=== PATIENT | male | born 1975 | race Caucasian/White ===

== ENCOUNTER → 2020-04-24 08:33 | Outpatient (BNVA) | payer MEDICARE, SELFPAY | PROVIDERS: PCP Nurse Practitioner Family; Referring Provider Nurse Practitioner Family; Visit Provider Nurse Practitioner Gerontology | DX: Z13.89 Encounter for screening for other disorder (principal) | CPT/HCPCS: Q3014 ==

== ENCOUNTER → 2020-05-29 08:28 | Outpatient (BNVA) | payer MEDICARE, SELFPAY | PROVIDERS: PCP Nurse Practitioner Family; Visit Provider Nurse Practitioner Gerontology | CPT/HCPCS: Q3014 ==

== ENCOUNTER → 2020-10-10 08:19 | Outpatient (BNVA) | payer MEDICARE, SELFPAY | PROVIDERS: PCP Nurse Practitioner Family; Visit Provider Nurse Practitioner Gerontology | DX: E11.65 Type 2 diabetes mellitus with hyperglycemia (principal); E11.42 Type 2 diabetes mellitus with diabetic polyneuropathy; E78.5 Hyperlipidemia, unspecified; E55.9 Vitamin D deficiency, unspecified; E66.01 Morbid (severe) obesity due to excess calories; I10 Essential (primary) hypertension; Z79.4 Long term (current) use of insulin; Z68.37 Body mass index [BMI] 37.0-37.9, adult | CPT/HCPCS: 82947; 83036; 99212 ==

== ENCOUNTER 2020-10-31 13:55 | Outpatient (REF) | payer MEDICARE, SELFPAY ==
[2020-10-31 16:55] LABS: Alanine Aminotransferase 34 U/L (0-40); Albumin Level 4.1 g/dL (3.5-5.0); Alkaline Phosphatase 97 U/L (39-117); Anion Gap 13 (12-20); Aspartate Amino Transferase 16 U/L (5-37); Bilirubin Total 0.9 mg/dL (0.0-1.0); Blood Urea Nitrogen 9 mg/dL (9-16); Calcium 9.5 mg/dL (8.4-10.2); Carbon Dioxide 24 mmol/L (22-29); Chloride 106 mmol/L (96-108); Cholesterol 111 mg/dL; Estimated Glomerular Filt Rate > 60; Glucose Fasting 161 mg/dL (60-99); HDL Cholesterol 22 mg/dL; LDL Cholesterol Calculated 60 mg/dl; Potassium 4.1 mmol/L (3.3-5.1); Sodium 139 mmol/L (135-145); Triglycerides 145 mg/dL
[2020-10-31 16:58] LABS: Creatinine Urine 136.94 mg/dL; Microalbum/Creatinine Ratio Ur 12.4 ug/mg cr
[2020-10-31 17:11] LABS: Vitamin D 25-OH Total 19.3 ng/mL (>30)
[2020-11-02 04:47] LABS: LDL Cholesterol Direct 67 mg/dL (<100)
== END 2020-10-31 13:56 | disposition home or self-care (01) ==
LOC: HO.HMGCLDS 13:55
PROVIDERS: PCP Nurse Practitioner Family; Visit Provider Nurse Practitioner Gerontology
DX: E11.42 Type 2 diabetes mellitus with diabetic polyneuropathy (principal); E55.9 Vitamin D deficiency, unspecified; Z79.4 Long term (current) use of insulin
CPT/HCPCS: 36415; 80053; 80061; 82043; 82306; 83721

== ENCOUNTER → 2020-11-05 10:21 | Outpatient (BNVA) | payer MEDICARE, SELFPAY | PROVIDERS: PCP Nurse Practitioner Family; Visit Provider Urology | DX: F41.8 Other specified anxiety disorders (principal) | CPT/HCPCS: 99202 ==

== ENCOUNTER → 2021-01-22 10:43 | Outpatient (BNVA) | payer MEDICARE, SELFPAY | PROVIDERS: PCP Nurse Practitioner Family; Visit Provider Urology | DX: Z30.2 Encounter for sterilization (principal); F41.8 Other specified anxiety disorders | CPT/HCPCS: 55250 ==

== ENCOUNTER → 2021-04-17 07:30 | Outpatient (BNVA) | payer MEDICARE, SELFPAY | PROVIDERS: PCP Nurse Practitioner Family; Visit Provider Nurse Practitioner Gerontology | DX: E11.65 Type 2 diabetes mellitus with hyperglycemia (principal); E11.42 Type 2 diabetes mellitus with diabetic polyneuropathy; E78.5 Hyperlipidemia, unspecified; E55.9 Vitamin D deficiency, unspecified; E66.01 Morbid (severe) obesity due to excess calories; I10 Essential (primary) hypertension; Z79.4 Long term (current) use of insulin; Z68.37 Body mass index [BMI] 37.0-37.9, adult | CPT/HCPCS: 99212 ==

== ENCOUNTER → 2021-04-22 10:06 | Outpatient (BNVA) | payer OTHER, SELFPAY | PROVIDERS: PCP Nurse Practitioner Family; Visit Provider Urology | DX: Z48.816 Encounter for surgical aftercare following surgery on the genitourinary system (principal); F41.8 Other specified anxiety disorders; Z98.52 Vasectomy status | CPT/HCPCS: 99212 ==

== ENCOUNTER → 2021-07-16 07:57 | Outpatient (BNVA) | payer MEDICARE, SELFPAY | PROVIDERS: PCP Nurse Practitioner Family; Visit Provider Nurse Practitioner Gerontology | DX: E11.65 Type 2 diabetes mellitus with hyperglycemia (principal); E11.42 Type 2 diabetes mellitus with diabetic polyneuropathy; E78.5 Hyperlipidemia, unspecified; E55.9 Vitamin D deficiency, unspecified; E66.01 Morbid (severe) obesity due to excess calories; I10 Essential (primary) hypertension; Z79.4 Long term (current) use of insulin; Z68.37 Body mass index [BMI] 37.0-37.9, adult | CPT/HCPCS: Q3014 ==

== ENCOUNTER 2021-08-14 07:40 | Outpatient (REF) | payer OTHER, SELFPAY ==
[2021-08-14 11:36] LABS: Appearance Urine CLEAR; Color Urine YELLOW; Glucose Urine UA NEG (NEG); Leukocyte Esterase Urine NEG (NEG); Nitrite Urine NEG (NEG); Urine Blood NEG (NEG); Urine Ketones NEG (NEG); Urine Protein NEG (NEG-TRACE)
[2021-08-14 11:54] LABS: Creatinine Urine 146.59 mg/dL; Microalbumin Urine < 5.0 mg/L
[2021-08-14 12:14] LABS: Alanine Aminotransferase 28 U/L (0-40); Alkaline Phosphatase 81 U/L (39-117); Anion Gap 12 (12-20); Aspartate Amino Transferase 14 U/L (5-37); Bilirubin Total 0.8 mg/dL (0.0-1.0); Blood Urea Nitrogen 12 mg/dL (9-16); Calcium 9.2 mg/dL (8.4-10.2); Carbon Dioxide 25 mmol/L (22-29); Chloride 105 mmol/L (96-108); Cholesterol 122 mg/dL; Estimated Glomerular Filt Rate > 60; Glucose Fasting 143 mg/dL (60-99); HDL Cholesterol 22 mg/dL; LDL Cholesterol Calculated 70 mg/dl; Potassium 4.2 mmol/L (3.3-5.1); Sodium 138 mmol/L (135-145); Total Protein 6.7 g/dL (6.5-8.0); Triglycerides 150 mg/dL
[2021-08-14 12:17] LABS: Vitamin D 25-OH Total 32.9 ng/mL (>30)
[2021-08-14 12:18] LABS: Estimated Average Glucose 128 mg/dL; Hemoglobin A1c % 6.1 %
[2021-08-16 00:02] LABS: LDL Cholesterol Direct 77 mg/dL (<100)
== END 2021-08-14 07:41 | disposition home or self-care (01) ==
LOC: HO.HMGCLDS 07:40
PROVIDERS: PCP Nurse Practitioner Family; Visit Provider Nurse Practitioner Gerontology
DX: E11.65 Type 2 diabetes mellitus with hyperglycemia (principal); E11.49 Type 2 diabetes mellitus with other diabetic neurological complication; I10 Essential (primary) hypertension; E55.9 Vitamin D deficiency, unspecified; Z79.4 Long term (current) use of insulin
CPT/HCPCS: 36415; 80053; 80061; 81003; 82043; 82306; 83036; 83721; 84443

== ENCOUNTER 2022-06-17 06:29 | Outpatient (REF) | payer OTHER, SELFPAY ==
[2022-06-17 11:17] LABS: Appearance Urine Cloudy; Color Urine Yellow; Glucose Urine UA Negative (Negative); Leukocyte Esterase Urine Negative (Negative); Nitrite Urine Negative (Negative); PH 5.5 (5.0-9.0); Urine Blood Negative (Negative); Urine Ketones Negative (Negative); Urine Protein Negative (Neg-Trace)
[2022-06-17 11:22] LABS: MANUAL DIFF FLAG NO
[2022-06-17 11:46] LABS: Basophils Percent Auto 0.3 % (0-2); Eosinophils Absolute Auto 0.2 X10*3/uL (0.0-0.4); Eosinophils Percent Auto 2.8 % (0-4); Hemoglobin 16.4 g/dl (14.0-18.0); Imm Gran Abs Auto 0.03 X10*3/uL (0.00-0.03); Imm Gran Pct Auto 0.5 % (0.0-0.4); Lymphocytes Absolute Auto 1.9 X10*3/uL (1.2-4.9); Lymphocytes Percent Auto 29.1 % (20-40); Mean Corpuscular HGB Conc 34.2 g/dl (31.0-36.0); Mean Corpuscular Hemoglobin 28.9 pg (27.0-33.0); Mean Corpuscular Volume 84.7 fL (80.0-98.0); Mean Platelet Volume 11.8 fL (9.4-12.4); Monocytes Absolute Auto 0.5 X10*3/uL (0.1-1.2); Monocytes Percent Auto 7.6 % (2-11); Neutrophils Absolute Auto 3.8 x10*3/uL (2.0-8.3); Neutrophils Percent Auto 59.7 % (45-73); Platelet Count 174 X10*3/uL (160-400); Red Blood Count 5.67 X10*6/uL (4.60-5.80); Red Cell Distribution Width 12.9 % (11.0-16.0); White Blood Count 6.4 X10*3/uL (4.8-10.8)
[2022-06-17 11:53] LABS: Alanine Aminotransferase 36 U/L (0-40); Albumin Level 3.9 g/dL (3.5-5.0); Alkaline Phosphatase 107 U/L (39-117); Anion Gap 12 (12-20); Aspartate Amino Transferase 26 U/L (5-37); Bilirubin Total 0.5 mg/dL (0.0-1.0); Blood Urea Nitrogen 10 mg/dL (9-16); Calcium 8.9 mg/dL (8.4-10.2); Carbon Dioxide 26 mmol/L (22-29); Chloride 105 mmol/L (96-108); Cholesterol 146 mg/dL; Estimated Glomerular Filt Rate > 60; Glucose Fasting 200 mg/dL (60-99); HDL Cholesterol 22 mg/dL; LDL Cholesterol Calculated 51 mg/dl; Potassium 4.1 mmol/L (3.3-5.1); Sodium 139 mmol/L (135-145); Total Protein 6.6 g/dL (6.5-8.0); Triglycerides 365 mg/dL
[2022-06-17 12:09] LABS: TSH reflex Free T4 1.68 uIU/mL (0.32-4.0)
== END 2022-06-17 06:30 | disposition home or self-care (01) ==
LOC: HO.HMGCLDS 06:29
PROVIDERS: Absent Provider Nurse Practitioner Gerontology; PCP Nurse Practitioner Family; Visit Provider Nurse Practitioner Family
DX: E11.49 Type 2 diabetes mellitus with other diabetic neurological complication (principal)
CPT/HCPCS: 36415; 80053; 80061; 81003; 84443; 85025

== ENCOUNTER 2022-10-21 11:20 | Outpatient (AMB) | payer OTHER, SELFPAY ==
--- NOTE | 2022-10-21 11:56 | MHC.OFFWIV ---
Intake Vital Signs 10/21/22 12:00 BP 140/100 H Blood Pressure Location Lt brachial Position Sitting Pulse 70 Pulse Source Pulse Oximeter Pulse Oximetry (%) 98 Oxygen Delivery Method Room Air Intake Visit Reasons: EP dizziness/falling/headaches/nausea(lobby) Intake Note: Patient here for dizziness which has been happening for a long time but he has been falling, blurry vision, headaches, nausea. Patient Tobacco Use Status: Current everyday Tobacco user Allergies doxycycline Allergy (Verified 10/21/22 11:58) Itching Do you need a note to return to daycare/school/sports/work: No HPI EP dizziness/falling/headaches/nausea(lobby) HPI Details This is a 47-year-old gentleman with a past medical history of type 2 diabetes mellitus, ANAYA, hyperlipidemia, Laird's palsy, obesity, ASD repair 03/31/2022. Patient presents with multiple complaints that have been ongoing for many months, however worsening recently. These include vertigo, dizziness, occasional headache and blurry vision. He is not currently on any BP meds. He is on metformin, and has been checking his blood sugar regularly with the Floqq shon system and his phone demetria. Sugars appear to be well-controlled. He states he has had a couple falls which were non mechanical in nature. He is unsure if he has been losing consciousness or not. BP on two manual checks today 20 minutes apart were 140/100, 140/94 respectively. He denies any shortness of breath or chest pain. He denies any palpitations. He denies any lightheadedness when changing positions or standing up. History of ASD repair as above with [facility] cardiology. [facility] Medical History ADHD Anxiety Bipolar disorder BMI 37.0-37.9, adult Diverticulitis Encephalomalacia with cerebral infarction Essential hypertension Fatty liver Gout Heel spur Hyperlipidemia LDL goal <100 Hypertriglyceridemia Mild asthma Obesity due to excess calories Ophthalmic migraine ANAYA on CPAP Splenomegaly Stroke Type 2 diabetes mellitus with diabetic polyneuropathy, with long-term current use of insulin Type 2 diabetes mellitus with hyperglycemia Vitamin D deficiency Surgical History History of colectomy History of foot surgery History of hernia repair Family History Father Diabetes mellitus Mental health disorder Mother HTN (hypertension) Maternal Uncle Diabetes mellitus Substance use disorder Mental health disorder Paternal Grandmother Diabetes mellitus Social History Household Members: Children Housing: House Patient Tobacco Use Status: Current everyday Tobacco user Tobacco use type: Cigarette Cigarettes Per Day: 8 Years Smoked: 25 e-Cigarette/Vaping Use: Currently Using Second Hand Smoke Exposure: No Substance Use Type: Marijuana service: No Current occupational status: disabled Cognitive needs: No Hearing needs: No Vision needs: No Review of Systems Const All systems reviewed & are unremarkable except as noted in HPI and below Physical Exam Vital Signs: Last Vital Signs Pulse 70 10/21/22 12:00 BP 140/100 H 10/21/22 12:00 Pulse Ox 98 10/21/22 12:00 Oxygen Delivery Method Room Air 10/21/22 12:00 Const General: cooperative, healthy appearing, comfortable and no acute distress Orientation/consciousness: patient oriented x3 HEENT Head: Yes normal to inspection Face and sinus: Yes normal facial exam and Yes face symmetric Mouth: Normal oral and palatal mucosa present Eyes Visual Martinez: normal visual martinez by confrontation Alignment and Position: alignment normal Pupils: Equal, round and reactive pupils present and Pupil accommodation reflex normal EOM: EOMs intact bilaterally Neck Neck: Yes no lymphadenopathy Resp Effort & Inspection: normal respiratory effort and able to speak in complete sentences Auscultation: clear to auscultation bilaterally Cardio Jugular venous distension: no JVD Palpation: normal PMI Rate: regular rate Rhythm: regular rhythm Peripheral pulses: Peripheral pulses 2+ throughout Skin General skin exam: no rashes or lesions noted Neuro General: patient oriented x3, gait normal, Normal light touch and pain sensation and deep tendon reflexes 2+ bilaterally Cranial nerves: Yes Equal, round and reactive pupils present and Yes Bilaterally intact EOM present Cognition (Neuro): normal cognition Motor exam (neuro): 5/5 motor strength present throughout Extrem General: Yes normal to inspection, Yes capillary refill normal and Yes no clubbing, cyanosis or edema Psych Appearance: grossly normal Mental Status: mental status grossly normal Speech and movement: Normal speech and movement present Assessment & Plan Assessment & Plan (1) Dizziness: Code(s): R42 - Dizziness and giddiness Plan: Patient has increasing symptoms as noted above, including dizziness, blurred vision, vertigo, headaches. His neuro, cardiovascular, respiratory assessment at this time appears normal. His BP is mildly elevated. I reviewed his blood sugar logs,and they appear within normal range. EKG done in the office does not indicate any abnormal findings. Patient has an upcoming f/u with [facility] in about 2 weeks. I called their office today on patient's behalf with his consent, and requested a sooner visit. The nurse I spoke with was going to review patient's symptoms with MD and call patient with a sooner office visit date. I discussed at length with the patient that based on his reported worsening symptoms, particularly increasing headaches, dizziness, falls, he should have evaluation in the ED. He declines at this time and will f/u with cardiology and PCP. I urged him to go to ED if these symptoms recur. Orders: Orders AMB EKG-In Office 10/21/22 R42 - Dizziness and giddiness Coding Level of Care Code Est Pt Level 3 (10617) Diagnoses Dizziness R42
[2022-10-21 12:00] VITALS: BP 140/100; PULSE 70; O2SAT 98
== END 2022-10-21 13:09 | disposition home or self-care (01) ==
PROVIDERS: PCP Nurse Practitioner Family; Visit Provider Nurse Practitioner Family
DX: R42 Dizziness and giddiness (principal)
CPT/HCPCS: 99213

== ENCOUNTER 2022-12-17 07:49 | Outpatient (AMB) | payer OTHER, SELFPAY ==
--- NOTE | 2022-12-17 07:58 | MHC.PC.OV ---
Vital Signs 12/17/22 08:00 Height 6 ft 2 in Weight 300 lb BMI 38.5 BP 130/90 H Blood Pressure Location Rt brachial Position Sitting Pulse 74 Pulse Source Pulse Oximeter Pulse Oximetry (%) 98 Oxygen Delivery Method Room Air Intake Visit Reasons: Annual Physical Allergies doxycycline Allergy (Verified 12/17/22 08:00) Itching Medication List - Last Reconciled 12/17/22 by Lázaro Browning, HEALTHCARE INTERPRETER- albuterol sulfate 90 mcg/actuation 2 puffs inhalation Q6H PRN 30 days alpha lipoic acid 600 mg PO Q24H aspirin 81 mg PO DAILY 90 days azelaic acid 15% (Finacea) 1 appl topical BID 90 days blood sugar diagnostic (ApozyStyle Precision Blaze Strips) 1 strip miscellaneous DAILY cetirizine 10 mg PO DAILY PRN NS cholecalciferol (vitamin D3) 50 mcg PO DAILY 90 days clopidogrel 75 mg PO DAILY dulaglutide (Trulicity) 0.75 mg (0.5 mL) subcut QWEEK flash glucose scanning reader (ApozyStyle Lynne 14 Day [place]) tid testing flash glucose sensor (FreeStyle Lynne 14 Day Sensor kit) TID testing fluticasone propionate 50 mcg/actuation 1 spray intranasal BID gabapentin 300 mg PO TID metformin ER 500 mg PO DAILY omega-3 acid ethyl esters 1 cap PO BID oxcarbazepine 300 mg PO BID Tobacco use date assessed: 12/17/22 Dental Screening Dental Screen Date: 12/17/22 Did you have a dental visit in the last 12 months?: Yes Did you have a dental problem in the last 6 months where you did not have access to dental care?: No Was dental information given to patient?: Patient has dentist HPI Annual Physical HPI Details Pt is here for a PE. Will order labs. Colon screen is up to date. Pt is a diabetic. A1C in office today is 6.4. Due for microalbumin, will order. Denies polyuria, polydipsia, does report neuropathy. Pt denies any signs and symptoms of hypoglycemia and does know how to correct it. Pt reports that his blood sugar has been ranging from 140s-240s. Pt c/o dizziness. He reports that this has been ongoing for approximately 1 year. Will refer to PT for vestibular rehab. Pt will be seeing ENT in January. [facility] Medical History ADHD Anxiety Bipolar disorder BMI 37.0-37.9, adult Diverticulitis Encephalomalacia with cerebral infarction Essential hypertension Fatty liver Gout Heel spur Hyperlipidemia LDL goal <100 Hypertriglyceridemia Mild asthma Obesity due to excess calories Ophthalmic migraine ANAYA on CPAP Splenomegaly Stroke Type 2 diabetes mellitus with diabetic polyneuropathy, with long-term current use of insulin Type 2 diabetes mellitus with hyperglycemia Vitamin D deficiency Surgical History History of foot surgery History of hernia repair History of colectomy Family History Father Diabetes mellitus Mental health disorder Mother HTN (hypertension) Maternal Uncle Diabetes mellitus Substance use disorder Mental health disorder Paternal Grandmother Diabetes mellitus Social History Household Members: Children Housing: House Patient Tobacco Use Status: Current everyday Tobacco user Tobacco use type: Cigarette Cigarettes Per Day: 8 Years Smoked: 25 e-Cigarette/Vaping Use: Currently Using Second Hand Smoke Exposure: No Substance Use Type: Marijuana service: No Current occupational status: disabled Cognitive needs: No Hearing needs: No Vision needs: No Questionnaire Thrive Questionnaire Date Thrive assessed: 11/13/21 AUDIT C Alcohol Use Questionnaire (AUDIT-C) 1. How often do you have a drink containing alcohol?: Never 3. How often do you have six or more drinks on one occasion?: Never Total Score: 0 Score Reviewed/Action Taken: No MANOLO-7 AMB Questionnaire MANOLO-7 Date MANOLO - 7 assessed: 11/13/21 Source: Developed by Drs. Israel Kiser, Zainab Barajas, Alfredo Yang and colleagues, with an educational florencio from [employer]. Review of Systems Const Denies chills and Denies fever(s) Eyes Denies blurry vision ENT Denies vertigo, Denies dizziness and Denies sore throat Card Denies chest pain at rest, Denies chest pain with activity, Denies diaphoresis, Denies dyspnea and Denies dyspnea on exertion Resp Denies cough, Denies dyspnea, Denies dyspnea on exertion and Denies wheezing GI Denies abdominal pain, Denies melena, Denies hematochezia, Denies constipation, Denies diarrhea and Denies loose stools Denies hematuria Musc Denies numbness and Denies tingling Skin/Breast Denies lesions Neuro Denies vertigo, Denies dizziness, Denies numbness and Denies tingling Psych Denies anxiety, Denies depression, Denies homicidal ideation, Denies suicidal ideation and Denies other (substance abuse) Aller/Immun Denies wheezing Physical exam (Primary Care) Vital Signs: Last Vital Signs Pulse 74 12/17/22 08:00 BP 130/90 H 12/17/22 08:00 Pulse Ox 98 12/17/22 08:00 Oxygen Delivery Method Room Air 12/17/22 08:00 BMI result Body Mass Index 38.5 Tobacco/Smoking Status: Tobacco use Status Tobacco use date assessed 12/17/22 12/17/22 08:04 Patient Tobacco Use Status Current everyday Tobacco 12/17/22 08:04 Tobacco use type Cigarette 12/17/22 08:04 e-Cigarette/Vaping Use Currently Using 12/17/22 08:04 Thrive Assessment: Date of Thrive Assessment Date Thrive assessed 11/13/21 12/17/22 08:04 Const General: cooperative Nutritional Appearance: obese Orientation/consciousness: patient oriented x3 HENMT Head: Yes normal to inspection, Yes normocephalic and Yes atraumatic Ears: TM's normal bilaterally Eyes General: appearance normal, both eyes and all related structures Alignment and Position: alignment normal and position normal Neck Neck: Yes normal visual inspection and Yes no lymphadenopathy Thyroid: Thyroid normal Resp Effort & Inspection: normal respiratory effort Auscultation: clear to auscultation bilaterally Cardio Rate: regular rate Rhythm: regular rhythm Heart sounds: S1 normal heart sound present, S2 normal heart sound present and no murmurs GI Palpation (GI): Soft to palpation and nontender Auscultation: normal bowel sounds Male General Exam: Yes normal external exam Penis: normal penis Scrotum: scrotum normal, testes descended bilaterally and no inguinal hernias Testes: no testicular mass Skin Rashes: no rashes Neuro Other: yuliana hallpike- severe dizziness during assessment, however no nystagmus noted, finger to thumb intact, heel to ulloa is wobbly (baseline balance issues) General: patient oriented x3, moves all extremities, no focal motor deficits, CN's II-XI intact bilaterally and deep tendon reflexes 2+ bilaterally Romberg Test: Negative Psych Appearance: grossly normal Mental Status: mental status grossly normal Speech and movement: Normal speech and movement present Affect: normal affect Attitude: cooperative Thought process: Normal thought process present Thought content: Normal thought content present Insight: Good insight present (Psych) Judgement: Good judgement present (Psych) Results AMB Hemoglobin A1c AMB Hemoglobin A1c 6.4 % Last Edit by NIGEL Conti on 12/17/22 08:18 Results Reviewed Results Reviewed: Laboratory Last Values Hgb A1c (Clinic) 6.4 % (4.0-6.0) H 12/17/22 08:17 Assessment and Plan Assessment & Plan (1) Diabetes with neurologic complications: Code(s): E11.49 - Type 2 diabetes mellitus with other diabetic neurological complication Plan: Labs ordered (2) Physical exam: Code(s): Z00.00 - Encounter for general adult medical examination without abnormal findings Plan: Labs ordered (3) Dizziness: Code(s): R42 - Dizziness and giddiness Plan: Referred to PT (4) Obesity: Code(s): E66.9 - Obesity, unspecified Plan The patient agreed to the use of a medical administrative assistant for this encounter. Scribed for MORE Amaya by Naima Galaviz medical administrative assistant, on 12/17/2022 at 08:15 EST. Orders: Orders UA CC w/rflx Micro + Cult Today E11.49 - Type 2 diabetes mellitus with other diabetic neurological complication, Z00.00 - Encounter for general adult medical examination without abnormal findings Microalbumin, Random (w Creat) Today E11.49 - Type 2 diabetes mellitus with other diabetic neurological complication AMB Hemoglobin A1c Today Z13.9 - Encounter for screening, unspecified Complete Blood Count Auto Diff Today E11.49 - Type 2 diabetes mellitus with other diabetic neurological complication, Z00.00 - Encounter for general adult medical examination without abnormal findings Comprehensive [place]. Panel Fast Today E11.49 - Type 2 diabetes mellitus with other diabetic neurological complication, Z00.00 - Encounter for general adult medical examination without abnormal findings TSH reflex Free T4 Today E11.49 - Type 2 diabetes mellitus with other diabetic neurological complication, Z00.00 - Encounter for general adult medical examination without abnormal findings Lipid Panel Today E11.49 - Type 2 diabetes mellitus with other diabetic neurological complication, Z00.00 - Encounter for general adult medical examination without abnormal findings PT Evaluation and Treatment Today R42 - Dizziness and giddiness Referrals Nutrition/Dietitian Referral E66.9 - Obesity, unspecified Medications: Changed From dulaglutide (Trulicity) 0.75 mg (0.5 mL) subcut QWEEK 6 mL 1RF E11.49 - Type 2 diabetes mellitus with other diabetic neurological complication To dulaglutide 1.5 mg (0.5 mL) subcut QWEEK 2.5 mL 1RF 30 days E11.49 - Type 2 diabetes mellitus with other diabetic neurological complication Coding Level of Care Code Est Pt Prev Care 40-64y(02327) Diagnoses Diabetes with neurologic complications E11.49 Physical exam Z00.00 Dizziness R42 Obesity E66.9
[2022-12-17 08:00] VITALS: BP 130/90; PULSE 74; O2SAT 98; BMI 38.5
== END 2022-12-17 09:06 | disposition home or self-care (01) ==
PROVIDERS: PCP Nurse Practitioner Family; Visit Provider Nurse Practitioner Family
DX: Z00.00 Encounter for general adult medical examination without abnormal findings (principal); E11.49 Type 2 diabetes mellitus with other diabetic neurological complication; E66.9 Obesity, unspecified; Z68.35 Body mass index [BMI] 35.0-35.9, adult; R42 Dizziness and giddiness
CPT/HCPCS: 83036; 99396

== ENCOUNTER 2022-12-17 08:46 | Outpatient (REF) | payer OTHER, SELFPAY ==
[2022-12-17 11:37] LABS: MANUAL DIFF FLAG NO
[2022-12-17 11:57] LABS: Basophils Percent Auto 0.5 % (0-2); Eosinophils Absolute Auto 0.1 X10*3/uL (0.0-0.4); Eosinophils Percent Auto 1.5 % (0-4); Hematocrit 46.6 % (42.0-52.0); Imm Gran Abs Auto 0.04 X10*3/uL (0.00-0.03); Imm Gran Pct Auto 0.6 % (0.0-0.4); Lymphocytes Absolute Auto 1.5 X10*3/uL (1.2-4.9); Lymphocytes Percent Auto 22.8 % (20-40); Mean Corpuscular HGB Conc 34.3 g/dl (31.0-36.0); Mean Corpuscular Hemoglobin 28.9 pg (27.0-33.0); Mean Corpuscular Volume 84.3 fL (80.0-98.0); Mean Platelet Volume 11.3 fL (9.4-12.4); Monocytes Absolute Auto 0.5 X10*3/uL (0.1-1.2); Monocytes Percent Auto 7.4 % (2-11); Neutrophils Absolute Auto 4.4 x10*3/uL (2.0-8.3); Neutrophils Percent Auto 67.2 % (45-73); Platelet Count 166 X10*3/uL (160-400); Red Blood Count 5.53 X10*6/uL (4.60-5.80); Red Cell Distribution Width 12.7 % (11.0-16.0); White Blood Count 6.6 X10*3/uL (4.8-10.8)
[2022-12-17 12:08] LABS: Appearance Urine Clear; Color Urine Yellow; Glucose Urine UA Negative (Negative); Leukocyte Esterase Urine Negative (Negative); Nitrite Urine Negative (Negative); Urine Blood Negative (Negative); Urine Ketones Negative (Negative); Urine Protein Negative (Neg-Trace)
[2022-12-17 12:35] LABS: Alanine Aminotransferase 35 U/L (0-40); Albumin Level 4.1 g/dL (3.5-5.0); Alkaline Phosphatase 93 U/L (39-117); Anion Gap 12 (12-20); Aspartate Amino Transferase 18 U/L (5-37); Bilirubin Total 0.5 mg/dL (0.0-1.0); Blood Urea Nitrogen 11 mg/dL (9-16); Calcium 9.7 mg/dL (8.4-10.2); Carbon Dioxide 24 mmol/L (22-29); Chloride 106 mmol/L (96-108); Cholesterol 136 mg/dL (<200); Estimated Glomerular Filt Rate > 60; Glucose Fasting 170 mg/dL (60-99); HDL Cholesterol 27 mg/dL (>40); LDL Cholesterol Calculated 76 mg/dL (<100); Potassium 4.2 mmol/L (3.3-5.1); Sodium 138 mmol/L (135-145); Total Protein 7.1 g/dL (6.5-8.0); Triglycerides 166 mg/dL (<150)
[2022-12-17 12:49] LABS: TSH reflex Free T4 1.53 uIU/mL (0.32-4.0)
[2022-12-17 13:01] LABS: Creatinine Urine 115.77 mg/dL
== END 2022-12-17 08:47 | disposition home or self-care (01) ==
LOC: HO.HMGCLDS 08:46
PROVIDERS: PCP Nurse Practitioner Family; Visit Provider Nurse Practitioner Family
DX: Z00.00 Encounter for general adult medical examination without abnormal findings (principal); E11.49 Type 2 diabetes mellitus with other diabetic neurological complication
CPT/HCPCS: 36415; 80053; 80061; 81003; 82043; 82570; 84443; 85025

== ENCOUNTER 2023-01-07 10:46 | Outpatient (RCR) | payer OTHER, SELFPAY ==
[2023-01-07 10:57] VITALS: BP 140/72; PULSE 76; O2SAT 96
--- NOTE | 2023-01-07 12:33 | MHC.PT.EP ---
[facility] [place] [facility] [place] Office [place] Office [address] [phone] F: [phone] F: [phone] F: [phone] F: [phone] Physical Therapy Plan of Care Date of Evaluation: 01/07/23 Date of Surgery: Diagnosis: This is a 47 yo male presenting to skilled PT with a script for vertigo. Assessment: This is a 47 yo male presenting to skilled PT with a script for vertigo. He reports that he has always had some sort of dizziness however it has been getting worse with age. He reports falls, dizziness when awake and asleep however cannot report anything that causes his dizziness or any pattern to his dizziness. Patient reports having cardiac surgery back in March 2022 (also a long PMHx), he went back to his motor grader rough grade and they reported this was not causing his dizziness. No recent scans. He has and ENT visit at the end of the month and returns to PCP in March. Examination shows + oculomotor tests with saccades horizontally, (-) VBI B and normal cervical AROM. He was (-) for BPPV with yuliana-hallpike B and roll test B. Balance was already compromised at baseline due to fusion of ankle and sedentary lifestyle. S/S are not consistent with BPPV at this time and he would not benefit from PT at this timed. Educated to follow up with PCP. Frequency and Duration: The patient will be seen NA Short Term Goals: NA Fpc Goals: (if he returns for another assessment) I in HEP Negative in all 6 canals for dizziness and nystagmus Return to normal gait pattern without reports fo LOB due to dizziness Treatment Plan: Modalities to reduce pain, spasms and effusion. Manual therapy to restore motion and function. Therapeutic exercise to improve strength and flexibility. Neuromuscular re-education for posture and balance. Therapeutic activities to return to functional activities of daily living. Electronically signed by: Belkis Prince PT Please sign and return to therapist. Thank you for your referral.
--- NOTE | 2023-02-05 09:37 | MHC.PT.DC ---
[facility] [place] Office [place] Office [place] Office [address] [phone] F: [phone] F: [phone] F: [phone] F: [phone] Physical Therapy Discharge Report Diagnosis: This is a 47 yo male presenting to skilled PT with a script for vertigo. Date of Surgery: Date of Evaluation: 01/07/23 Date of Discharge: 02/05/23 Treatments to Date: 1 Cancellations to Date: 0 No Shows to Date: 0 Discharge Status: Achieved Goals Improved Function Independent with HEP Discharge Summary: This is a 47 yo male presenting to skilled PT with a script for vertigo. He reports that he has always had some sort of dizziness however it has been getting worse with age. He reports falls, dizziness when awake and asleep however cannot report anything that causes his dizziness or any pattern to his dizziness. Patient reports having cardiac surgery back in March 2022 (also a long PMHx), he went back to his waste specialist and they reported this was not causing his dizziness. No recent scans. He has and ENT visit at the end of the month and returns to PCP in March. Examination shows + oculomotor tests with saccades horizontally, (-) VBI B and normal cervical AROM. He was (-) for BPPV with yuliana-hallpike B and roll test B. Balance was already compromised at baseline due to fusion of ankle and sedentary lifestyle. S/S are not consistent with BPPV at this time and he would not benefit from PT at this timed. Educated to follow up with PCP. Chart was closed after 30 days. Electronically signed by: Belkis Prince PT Please sign and return to therapist. Thank you for your referral.
== END 2023-02-05 09:37 | disposition home or self-care (01) ==
LOC: HO.PTCHIC 10:46
PROVIDERS: PCP Nurse Practitioner Family; Visit Provider Nurse Practitioner Family
DX: R42 Dizziness and giddiness (principal)
CPT/HCPCS: 97110; 97161

== ENCOUNTER 2023-04-01 09:45 | Outpatient (AMB) | payer OTHER, SELFPAY ==
--- NOTE | 2023-04-01 09:57 | MHC.PC.OV ---
Vital Signs 04/01/23 10:02 Weight 301 lb BP 126/80 Blood Pressure Location Rt brachial Position Sitting Pulse 68 Pulse Source Pulse Oximeter Pulse Oximetry (%) 98 Oxygen Delivery Method Room Air Intake Visit Reasons: 4 month fu Intake Note: Patient here for diabetes follow up. Allergies doxycycline Allergy (Verified 04/01/23 10:00) Itching Medication List - Last Reconciled 04/01/23 by Lázaro Browning, [facility]- albuterol sulfate 90 mcg/actuation 2 puffs inhalation Q6H PRN 30 days alpha lipoic acid 600 mg PO Q24H aspirin 81 mg PO DAILY 90 days azelaic acid 15% (Finacea) 1 appl topical BID 90 days blood sugar diagnostic (FreeStyle Precision Blaze Strips) 1 strip miscellaneous DAILY cetirizine 10 mg PO DAILY PRN NS cholecalciferol (vitamin D3) 50 mcg PO DAILY 90 days dulaglutide 0.75 mg (0.5 mL) subcut QWEEK flash glucose scanning reader ([place] [employer] Lynne 14 Day [place]) tid testing flash glucose sensor (FreeStyle Lynne 14 Day Sensor kit) TID testing fluticasone propionate 50 mcg/actuation 1 spray intranasal BID gabapentin 300 mg PO TID losartan 50 mg PO DAILY metformin ER 500 mg PO DAILY omega-3 acid ethyl esters 1 cap PO BID oxcarbazepine 300 mg PO BID tirzepatide (Mounjaro) 5 mg (0.5 mL) subcut QWEEK Tobacco use date assessed: 12/17/22 Dental Screening Dental Screen Date: 04/01/23 Did you have a dental visit in the last 12 months?: Yes Did you have a dental problem in the last 6 months where you did not have access to dental care?: No Was dental information given to patient?: Patient has dentist HPI 4 month fu HPI Details Patient is here for follow-up for diabetes. He understands the signs and symptoms of hypoglycemia and how to correct it. We are having trouble getting the correct dose of a GLP1 agonist, due to insurance and/or shortage. Will send atorvastatin today. Pt does report palpitations. He denies any CP, or SOB, but notices his heart racing then slowing down, intermittently. He does follow up with cardiology, reported 2 holters were done, and his symptoms did not correlate with anything (according to pt). Pt did not tolerate a SGLT2 I previously. [facility] Medical History Encephalomalacia with cerebral infarction Stroke Gout Diverticulitis Fatty liver Splenomegaly Hypertriglyceridemia ANAYA on CPAP Mild asthma Ophthalmic migraine Heel spur ADHD Bipolar disorder Anxiety Type 2 diabetes mellitus with diabetic polyneuropathy, with long-term current use of insulin Essential hypertension Hyperlipidemia LDL goal <100 Vitamin D deficiency Obesity due to excess calories BMI 37.0-37.9, adult Type 2 diabetes mellitus with hyperglycemia Surgical History History of foot surgery History of hernia repair History of colectomy Family History Father Diabetes mellitus Mental health disorder Mother HTN (hypertension) Maternal Uncle Diabetes mellitus Substance use disorder Mental health disorder Paternal Grandmother Diabetes mellitus Social History Household Members: Children Housing: House Patient Tobacco Use Status: Current everyday Tobacco user Tobacco use type: Cigarette Cigarettes Per Day: 8 Years Smoked: 25 e-Cigarette/Vaping Use: Currently Using Second Hand Smoke Exposure: No Substance Use Type: Marijuana service: No Current occupational status: disabled Cognitive needs: No Hearing needs: No Vision needs: No Questionnaire Thrive Questionnaire Date Thrive assessed: 11/13/21 MANOLO-7 AMB Questionnaire MANOLO-7 Date MANOLO - 7 assessed: 11/13/21 Source: Developed by Drs. Israel Kiser, Zainab Barajas, Alfredo Yang and colleagues, with an educational florencio from [employer]. Physical exam (Primary Care) Vital Signs: Last Vital Signs Pulse 68 04/01/23 10:02 BP 126/80 04/01/23 10:02 Pulse Ox 98 04/01/23 10:02 Oxygen Delivery Method Room Air 04/01/23 10:02 Tobacco/Smoking Status: Tobacco use Status Tobacco use date assessed 12/17/22 04/01/23 09:58 Patient Tobacco Use Status Current everyday Tobacco 04/01/23 09:58 Tobacco use type Cigarette 04/01/23 09:58 e-Cigarette/Vaping Use Currently Using 04/01/23 09:58 Thrive Assessment: Date of Thrive Assessment Date Thrive assessed 11/13/21 04/01/23 09:58 Const General: cooperative, comfortable and no acute distress Resp Effort & Inspection: normal respiratory effort Auscultation: clear to auscultation bilaterally Cardio Rate: regular rate Rhythm: regular rhythm Heart sounds: S1 normal heart sound present, S2 normal heart sound present and no murmurs Extrem Other: feet intact, hypersensitive with use of monofilament Psych Appearance: grossly normal Mental Status: mental status grossly normal Speech and movement: Normal speech and movement present Affect: normal affect Attitude: cooperative Thought process: Normal thought process present Thought content: Normal thought content present Insight: Good insight present (Psych) Judgement: Good judgement present (Psych) Results AMB Hemoglobin A1c AMB Hemoglobin A1c 7.8 % Last Edit by NIGEL Conti on 04/01/23 10:18 Assessment and Plan Assessment & Plan (1) Type 2 diabetes mellitus with hyperglycemia: Code(s): E11.65 - Type 2 diabetes mellitus with hyperglycemia Qualifiers: Diabetes mellitus nursing home insulin use: with nursing home use Qualified Code(s): E11.65 - Type 2 diabetes mellitus with hyperglycemia; 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 Orders: Orders AMB Hemoglobin A1c Today E11.49 - Type 2 diabetes mellitus with other diabetic neurological complication Medications: New atorvastatin 20 mg PO BEDTIME 90 tabs 0RF Changed From dulaglutide 3 mg (2 mL) subcut QWEEK 8 mL 1RF E11.49 - Type 2 diabetes mellitus with other diabetic neurological complication To dulaglutide 0.75 mg (0.5 mL) subcut QWEEK 1 mL 1RF E11.49 - Type 2 diabetes mellitus with other diabetic neurological complication Coding Level of Care Code Est Pt Level 3 (20689) Diagnoses Type 2 diabetes mellitus with hyperglycemia, with long-term current use of insulin E11.65; Z79.4 Diabetes mellitus nursing home 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
[2023-04-01 10:02] VITALS: BP 126/80; PULSE 68; O2SAT 98
== END 2023-04-01 10:49 | disposition home or self-care (01) ==
PROVIDERS: PCP Nurse Practitioner Family; Visit Provider Nurse Practitioner Family
DX: E11.65 Type 2 diabetes mellitus with hyperglycemia (principal); Z79.4 Long term (current) use of insulin; E11.49 Type 2 diabetes mellitus with other diabetic neurological complication
CPT/HCPCS: 83036; 99213

== ENCOUNTER 2023-05-28 15:06 | Outpatient (AMB) | payer OTHER, SELFPAY ==
[2023-05-28 15:13] VITALS: BP 130/80; PULSE 74; TEMP 36.6; O2SAT 97; BMI 38.6
--- NOTE | 2023-05-28 15:13 | AM.OFFWIN_ITS ---
Intake Vital Signs 05/28/23 15:13 Height 6 ft 2 in Weight 301 lb BMI 38.6 BP 130/80 Blood Pressure Location Rt brachial Position Sitting Pulse 74 Pulse Source Pulse Oximeter Temp 97.9 F Temp Source Oral Pulse Oximetry (%) 97 Oxygen Delivery Method Room Air Intake Visit Reasons: EP groin pain Intake Note: pt is here for c.o groin pain, 5 days denied injury Patient Tobacco Use Status: Current everyday Tobacco user Allergies doxycycline Allergy (Verified 05/28/23 15:13) Itching Do you need a note to return to daycare/school/sports/work: No HPI HPI Comments History of Present Illness Details 47 y/o male patient who presents to walk in clinic with c/o bilateral testicular pain and suprapubic tenderness x 5 days. Denies trouble with erection. Denies hematuria or other urinary symptoms. Denies penile discharge. [facility] Medical History Encephalomalacia with cerebral infarction Stroke Gout Diverticulitis Fatty liver Splenomegaly Hypertriglyceridemia ANAYA on CPAP Mild asthma Ophthalmic migraine Heel spur ADHD Bipolar disorder Anxiety Type 2 diabetes mellitus with diabetic polyneuropathy, with long-term current use of insulin Essential hypertension Hyperlipidemia LDL goal <100 Vitamin D deficiency Obesity due to excess calories BMI 37.0-37.9, adult Type 2 diabetes mellitus with hyperglycemia Surgical History History of foot surgery History of hernia repair History of colectomy Family History Father Diabetes mellitus Mental health disorder Mother HTN (hypertension) Maternal Uncle Diabetes mellitus Substance use disorder Mental health disorder Paternal Grandmother Diabetes mellitus Social History Household Members: Children Housing: House Patient Tobacco Use Status: Current everyday Tobacco user Tobacco use type: Cigarette Cigarettes Per Day: 8 Years Smoked: 25 e-Cigarette/Vaping Use: Currently Using Second Hand Smoke Exposure: No Substance Use Type: Marijuana service: No Current occupational status: disabled Cognitive needs: No Hearing needs: No Vision needs: No Review of Systems Const All systems reviewed & are unremarkable except as noted in HPI and below Physical Exam Vital Signs: Last Vital Signs Temp 97.9 F 05/28/23 15:13 Pulse 74 05/28/23 15:13 BP 130/80 05/28/23 15:13 Pulse Ox 97 05/28/23 15:13 Oxygen Delivery Method Room Air 05/28/23 15:13 BMI result Body Mass Index 38.6 Const General: no acute distress Nutritional Appearance: obese Orientation/consciousness: patient oriented x3 GI Inspection: Yes Abdominal panniculus present and Yes obesity Palpation (GI): Tenderness to palpation present (GI) suprapubicly, no hernias and no masses Auscultation: normal bowel sounds Rectal Exam - Male: Yes deferred General: Yes bladder normal to inspection Penis: circumcised and other (tenderness Quinten testicles,left testicular mildy swollen) Meatus: meatus normal and no meatla discharge Scrotum: testes descended bilaterally, no inguinal hernias and scrotal swelling on the left Neuro General: patient oriented x3 and no focal motor deficits Gait exam (Neuro): Normal gait present Psych Appearance: grossly normal Results AMB Urinalysis, Automated UA Leukoctes 0 Elizabeth/uL Last Edit by Hunter Brown CMA on 05/28/23 15:44 UA Nitrite Negative Last Edit by Hunter Brown CMA on 05/28/23 15:44 UA Urobilinogen 0.2 mg/dL Last Edit by Hunter Brown CMA on 05/28/23 15 :44 UA Protein 0 mg/dL Last Edit by Hunter Brown CMA on 05/28/23 15:44 UA pH 6.5 Last Edit by Hunter Brown CMA on 05/28/23 15:44 UA Blood 0 Geoffrey/uL Last Edit by Hunter Brown CMA on 05/28/23 15:44 UA Specific [place] 1.010 Last Edit by Hunter Brown CMA on 05/28/23 15:44 UA Ketone Negative Last Edit by Hunter Brown CMA on 05/28/23 15:44 UA Bilirubin 0 mg/dL Last Edit by Hunter Brown CMA on 05/28/23 15:44 UA Glucose 0 mg/dL Last Edit by Hunter Brown CMA on 05/28/23 15:44 Results Reviewed Results Reviewed: Laboratory Last Values Urine pH (Auto) 6.5 05/28/23 15:43 Specific [place] (Auto) 1.010 05/28/23 15:43 Urine Protein (Auto) 0 mg/dL 05/28/23 15:43 Glucose (UA)(Auto) 0 mg/dL 05/28/23 15:43 Urine Ketones (Auto) Negative 05/28/23 15:43 Urine Blood (Auto) 0 Geoffrey/uL 05/28/23 15:43 Urine Nitrite (Auto) Negative 05/28/23 15:43 Urine Bilirubin (Auto) 0 mg/dL 05/28/23 15:43 Urine Urobilinogen (Auto) 0.2 mg/dL 05/28/23 15:43 Leukocyte Esterase (Auto) 0 Elizabeth/uL 05/28/23 15:43 Assessment & Plan Assessment & Plan (1) Scrotal pain: Code(s): N50.82 - Scrotal pain Plan: - Advised Pt to f/u with PCP for Groin U/S - Advised to watch for severe signs of infection - U/A negative for infection - Will message PCP to Order U/S - NSAIDs for pain relief - ICE HOT Orders: Orders AMB Urinalysis Automated Today Z13.9 - Encounter for screening, unspecified Coding Level of Care Code Est Pt Level 3 (93544) Diagnoses Scrotal pain N50.82 Time Spent (min) 15
== END 2023-05-28 15:55 | disposition home or self-care (01) ==
PROVIDERS: PCP Nurse Practitioner Family; Visit Provider Nurse Practitioner Family
DX: N50.82 Scrotal pain (principal)
CPT/HCPCS: 81003; 99213

== ENCOUNTER 2023-06-02 15:08 | Outpatient (REF) | payer OTHER, SELFPAY ==
--- NOTE | ~2023-06-02 | US_ITS ---
EXAMINATION: US SCROTUM CLINICAL INFORMATION: Scrotal pain. COMPARISON: None available. TECHNIQUE: A sonogram of the scrotum was performed assessing perez-scale appearance and color Doppler flow. Spectral Doppler analysis of the arterial and venous flow were performed in the testes bilaterally. FINDINGS: RIGHT: Right testicle measures 6.1 x 2.7 x 3.6 cm, volume 31.1 mL. No focal testicular parenchymal lesions are visualized. Spectral Doppler analysis of the arterial and venous flow is normal in the right testis. Right epididymal head is normal in size. No right varicocele is seen. Right epididymal Doppler flow is normal. Trace right-sided hydrocele LEFT: Left testicle measures 6.0 x 2.8 x 3.9 cm, volume 34.3 mL. No focal testicular parenchymal lesions are visualized. Spectral Doppler analysis of the arterial and venous flow is normal in the left testis. Left epididymal head is normal in size. Left epididymal head cyst measuring 3 mm. No left hydrocele or varicocele is seen. Left epididymal Doppler flow is normal. US/US scrotum IMPRESSION: 1. Bilateral testicular vascular flow visualized. 2. Trace right-sided hydrocele. 3. Left epididymal head cyst measuring 3 mm.
--- NOTE | ~2023-06-02 | US_ITS ---
EXAMINATION: US RETROPERITONEAL COMPLETE (RENAL) CLINICAL INFORMATION: Abdominal tenderness.. COMPARISON: Ultrasound abdomen 09/19/2018. CT abdomen and pelvis 06/02/2018 TECHNIQUE: Real-time imaging of the kidneys and bladder. FINDINGS: RIGHT KIDNEY: 15.0 x 4.9 x 7.1 cm (SAG x AP x TRV). The kidney is normal in size, contour, and echogenicity. Renal cortical thickness is normal. No calculi or focal parenchymal lesions. No hydronephrosis. LEFT KIDNEY: 14.6 x 5.2 x 7.2 cm (SAG x AP x TRV). The kidney is normal in size, contour, and echogenicity. Renal cortical thickness is normal. No calculi or focal parenchymal lesions. No hydronephrosis. There are several anechoic cysts. Upper pole cyst measures 1.2 x 0.9 x 0.9 cm, midpole cyst measures 0.7 x 0.8 x 0.9 cm and a midpole cyst measures 0.7 x 0.6 x 0.6 cm. BLADDER: Well distended and normal. Bilateral ureteral jets are demonstrated. Prevoid bladder volume is 289 mL. Postvoid bladder volume is 77 mL. The pelvic exam is slightly limited secondary to abdominal wall scarring and hernia repair and patient body habitus. The prostate gland is slightly hyperechoic likely secondary to microcalcifications. It measures 1.7 x 1.6 x 2.0 cm and volume 25 mL. Small central gland calcifications are seen on the previous CT abdomen exam 06/02/2018. US/US retroperitoneal comp IMPRESSION: 1. Multiple left renal cysts. No echogenic stones or hydronephrosis seen. 2. Small postvoid residual bladder volume. Normal bilateral ureteral jets seen.
== END 2023-06-02 15:09 | disposition home or self-care (01) ==
LOC: HO.HMGCX 15:08
PROVIDERS: PCP Nurse Practitioner Family; Visit Provider Nurse Practitioner Family
DX: R10.819 Abdominal tenderness, unspecified site (principal); N50.82 Scrotal pain; N50.819 Testicular pain, unspecified
CPT/HCPCS: 76770; 76870

== ENCOUNTER 2023-07-06 09:23 | Outpatient (AMB) | payer OTHER, SELFPAY ==
--- NOTE | 2023-07-06 09:54 | A.OFFPC_ITS ---
Vital Signs 07/06/23 09:57 Height 6 ft 2 in Weight 304 lb BMI 39.0 BP 120/86 Blood Pressure Location Rt brachial Position Sitting Pulse 68 Pulse Source Pulse Oximeter Pulse Oximetry (%) 97 Oxygen Delivery Method Room Air Intake Visit Reasons: 4 month fu Intake Note: Patient here for diabetes f/u. Allergies doxycycline Allergy (Verified 07/06/23 12:26) Itching Medication List - Last Reconciled 07/06/23 by MORE Horne albuterol sulfate 90 mcg/actuation 2 puffs inhalation Q6H PRN 30 days alpha lipoic acid 600 mg PO Q24H aspirin 81 mg PO DAILY 90 days atorvastatin 20 mg PO BEDTIME azelaic acid 15% (Finacea) 1 appl topical BID 90 days blood sugar diagnostic ([employer] Precision Blaze Strips) 1 strip miscellaneous DAILY cholecalciferol (vitamin D3) 50 mcg PO DAILY 90 days clonazepam mg PO dulaglutide 0.75 mg (0.5 mL) subcut QWEEK flash glucose scanning reader ([employer] Lynne 14 Day [place]) tid testing flash glucose sensor (FreeStyle Lynne 14 Day Sensor kit) TID testing gabapentin 300 mg PO TID losartan 25 mg PO DAILY metformin ER 500 mg PO DAILY omega-3 acid ethyl esters 1 cap PO BID oxcarbazepine 300 mg PO BID Tobacco use date assessed: 07/06/23 Dental Screening Dental Screen Date: 07/06/23 Did you have a dental visit in the last 12 months?: Yes Did you have a dental problem in the last 6 months where you did not have access to dental care?: No Was dental information given to patient?: Patient has dentist HPI 4 month fu HPI Details Pt is a diabetic, on an ARB and a statin. A1C in office today is 6.5. Microalbumin is up to date. Denies polyuria, polydipsia, does report neuropathy. Pt denies any signs and symptoms of hypoglycemia and does know how to correct it. Pt c/o ongoing dizziness and balance issues. He reports that this happens with any position. He has seen ENT for this and gone to vestibular rehab. Will order MRI and refer to neurology. [facility] Medical History Encephalomalacia with cerebral infarction Stroke Gout Diverticulitis Fatty liver Splenomegaly Hypertriglyceridemia ANAYA on CPAP Mild asthma Ophthalmic migraine Heel spur ADHD Bipolar disorder Anxiety Type 2 diabetes mellitus with diabetic polyneuropathy, with long-term current use of insulin Essential hypertension Hyperlipidemia LDL goal <100 Vitamin D deficiency Obesity due to excess calories BMI 37.0-37.9, adult Type 2 diabetes mellitus with hyperglycemia Surgical History History of foot surgery History of hernia repair History of colectomy Family History Father Diabetes mellitus Mental health disorder Mother HTN (hypertension) Maternal Uncle Diabetes mellitus Substance use disorder Mental health disorder Paternal Grandmother Diabetes mellitus Social History Household Members: Children Housing: House Patient Tobacco Use Status: Current everyday Tobacco user Tobacco use type: Cigarette Cigarettes Per Day: 8 Years Smoked: 25 e-Cigarette/Vaping Use: Currently Using Second Hand Smoke Exposure: No Substance Use Type: Marijuana service: No Current occupational status: disabled Cognitive needs: No Hearing needs: No Vision needs: No Questionnaire Thrive Questionnaire Date Thrive assessed: 11/13/21 AUDIT C Alcohol Use Questionnaire (AUDIT-C) 1. How often do you have a drink containing alcohol?: Never 3. How often do you have six or more drinks on one occasion?: Never Total Score: 0 Score Reviewed/Action Taken: No MANOLO-7 AMB Questionnaire MANOLO-7 Date MANOLO - 7 assessed: 11/13/21 Source: Developed by Drs. Israel Kiser, Zainab Barajas, Alfredo Yang and colleagues, with an educational florencio from [employer]. Review of Systems Const Reports as per HPI Physical exam (Primary Care) Vital Signs: Last Vital Signs Pulse 68 07/06/23 09:57 BP 120/86 07/06/23 09:57 Pulse Ox 97 07/06/23 09:57 Oxygen Delivery Method Room Air 07/06/23 09:57 BMI result Body Mass Index 39.0 Tobacco/Smoking Status: Tobacco use Status Tobacco use date assessed 07/06/23 07/06/23 10:00 Patient Tobacco Use Status Current everyday Tobacco 07/06/23 09:56 Tobacco use type Cigarette 07/06/23 09:56 e-Cigarette/Vaping Use Currently Using 07/06/23 09:56 Thrive Assessment: Date of Thrive Assessment Date Thrive assessed 11/13/21 07/06/23 09:56 Const General: cooperative Nutritional Appearance: obese Orientation/consciousness: patient oriented x3 Resp Effort & Inspection: normal respiratory effort Auscultation: clear to auscultation bilaterally Cardio Rate: regular rate Rhythm: regular rhythm Heart sounds: S1 normal heart sound present and S2 normal heart sound present Neuro Other: swaying with romberg, negative arm pull test, finger to thumb intact General: patient oriented x3 and CN's II-XI intact bilaterally Extrem Other: bilat feet: hypersensitivity with use of monofilament, feet intact Psych Appearance: grossly normal Mental Status: mental status grossly normal Speech and movement: Normal speech and movement present Affect: normal affect Attitude: cooperative Thought process: Normal thought process present Thought content: Normal thought content present Insight: Good insight present (Psych) Judgement: Good judgement present (Psych) Results AMB Hemoglobin A1c AMB Hemoglobin A1c 6.5 % Last Edit by NIGEL Conti on 07/06/23 10 :20 Results Reviewed Results Reviewed: Laboratory Last Values Hgb A1c (Clinic) 6.5 % (4.0-6.0) H 07/06/23 10:19 Assessment and Plan Assessment & Plan (1) Balance problem: Code(s): R26.89 - Other abnormalities of gait and mobility Plan: MRI ordered, referred to neuro (2) Diabetes with neurologic complications: Code(s): E11.49 - Type 2 diabetes mellitus with other diabetic neurological complication Plan: Labs ordered (3) Dizziness: Code(s): R42 - Dizziness and giddiness Plan The patient agreed to the use of a medical certification specialist for this encounter. Scribed for CONSTANTIN Amaya- by Naima Galaviz medical certification specialist, on 07/06/2023 at 10:10 EST. Orders: Orders UA CC w/rflx Micro + Cult Today E11.49 - Type 2 diabetes mellitus with other diabetic neurological complication Lipid Panel Today E11.49 - Type 2 diabetes mellitus with other diabetic neurological complication AMB Hemoglobin A1c Today Z13.9 - Encounter for screening, unspecified MR head/brain wo con Today R26.89 - Other abnormalities of gait and mobility Complete Blood Count Auto Diff Today E11.49 - Type 2 diabetes mellitus with other diabetic neurological complication Comprehensive [place]. Panel Fast Today E11.49 - Type 2 diabetes mellitus with other diabetic neurological complication TSH reflex Free T4 Today E11.49 - Type 2 diabetes mellitus with other diabetic neurological complication Referrals Neurology Referral R26.89 - Other abnormalities of gait and mobility, R42 - Dizziness and giddiness Coding Level of Care Code Est Pt Level 3 (66015) Diagnoses Balance problem R26.89 Diabetes with neurologic complications E11.49 Dizziness R42
[2023-07-06 09:57] VITALS: BP 120/86; PULSE 68; O2SAT 97; BMI 39.0
== END 2023-07-06 10:28 | disposition home or self-care (01) ==
PROVIDERS: PCP Nurse Practitioner Family; Visit Provider Nurse Practitioner Family
DX: R26.89 Other abnormalities of gait and mobility (principal); E11.49 Type 2 diabetes mellitus with other diabetic neurological complication; R42 Dizziness and giddiness
CPT/HCPCS: 83036; 99213

== ENCOUNTER 2023-07-06 10:29 | Outpatient (REF) | payer OTHER, SELFPAY ==
[2023-07-06 12:51] LABS: MANUAL DIFF FLAG NO
[2023-07-06 13:00] LABS: Basophils Percent Auto 0.5 % (0-2); Eosinophils Absolute Auto 0.1 X10*3/uL (0.0-0.4); Eosinophils Percent Auto 1.8 % (0-4); Hematocrit 44.2 % (42.0-52.0); Hemoglobin 15.1 g/dl (14.0-18.0); Imm Gran Abs Auto 0.04 X10*3/uL (0.00-0.03); Imm Gran Pct Auto 0.6 % (0.0-0.4); Lymphocytes Absolute Auto 1.7 X10*3/uL (1.2-4.9); Lymphocytes Percent Auto 26.9 % (20-40); Mean Corpuscular HGB Conc 34.2 g/dl (31.0-36.0); Mean Corpuscular Hemoglobin 28.9 pg (27.0-33.0); Mean Corpuscular Volume 84.5 fL (80.0-98.0); Mean Platelet Volume 10.9 fL (9.4-12.4); Monocytes Absolute Auto 0.5 X10*3/uL (0.1-1.2); Monocytes Percent Auto 7.4 % (2-11); Neutrophils Absolute Auto 3.9 x10*3/uL (2.0-8.3); Neutrophils Percent Auto 62.8 % (45-73); Platelet Count 156 X10*3/uL (160-400); Red Blood Count 5.23 X10*6/uL (4.60-5.80); Red Cell Distribution Width 12.8 % (11.0-16.0); White Blood Count 6.3 X10*3/uL (4.8-10.8)
[2023-07-06 13:41] LABS: Alanine Aminotransferase 37 U/L (0-40); Alkaline Phosphatase 93 U/L (39-117); Anion Gap 11 (12-20); Aspartate Amino Transferase 19 U/L (5-37); Bilirubin Total 0.6 mg/dL (0.0-1.0); Blood Urea Nitrogen 12 mg/dL (9-16); Calcium 9.3 mg/dL (8.4-10.2); Carbon Dioxide 26 mmol/L (22-29); Chloride 105 mmol/L (96-108); Cholesterol 143 mg/dL (<200); Estimated Glomerular Filt Rate > 60; Glucose Fasting 112 mg/dL (60-99); HDL Cholesterol 25 mg/dL (>40); LDL Cholesterol Calculated 86 mg/dL (<100); Potassium 4.2 mmol/L (3.3-5.1); Sodium 138 mmol/L (135-145); TSH reflex Free T4 1.17 uIU/mL (0.32-4.0); Triglycerides 162 mg/dL (<150)
[2023-07-06 16:31] LABS: Appearance Urine Turbid; Color Urine Dark Yellow; Glucose Urine UA Negative (Negative); Leukocyte Esterase Urine Negative (Negative); Nitrite Urine Negative (Negative); PH 5.5 (5.0-9.0); Specific Gravity - Urine >= 1.030 (1.005-1.025); Urine Blood Negative (Negative); Urine Ketones Negative (Negative); Urine Protein Negative (Neg-Trace)
== END 2023-07-06 10:30 | disposition home or self-care (01) ==
LOC: HO.HMGCLDS 10:29
PROVIDERS: PCP Nurse Practitioner Family; Visit Provider Nurse Practitioner Family
DX: E11.49 Type 2 diabetes mellitus with other diabetic neurological complication (principal)
CPT/HCPCS: 36415; 80053; 80061; 81003; 84443; 85025

== ENCOUNTER 2023-08-04 09:50 | Outpatient (AMB) | payer OTHER, SELFPAY ==
--- NOTE | 2023-08-04 09:51 | MHC.OFFVIS ---
Intake Visit Reasons: race right-sided hydrocele/ cyst Intake Note: Patient presents today for right sided hydrocele/cyst Urology Medications: none Blood Thinner: aspirin Linotypist Required: No Accompanied by: Self / Same As Patient Allergies doxycycline Allergy (Verified 08/04/23 10:34) Itching Medication List - Last Reconciled 08/04/23 by CONSTANTIN Haji- albuterol sulfate 90 mcg/actuation 2 puffs inhalation Q6H PRN 30 days alpha lipoic acid 600 mg PO Q24H aspirin 81 mg PO DAILY 90 days atorvastatin 20 mg PO BEDTIME azelaic acid 15% (Finacea) 1 appl topical BID 90 days blood sugar diagnostic (NEMOPTICStyle Precision Blaze Strips) 1 strip miscellaneous DAILY bupropion HCl XL 150 mg PO DAILY cane As directed cholecalciferol (vitamin D3) 50 mcg PO DAILY 90 days clonazepam mg PO dulaglutide 0.75 mg (0.5 mL) subcut QWEEK dulaglutide (Trulicity) mg subcut flash glucose scanning reader (NEMOPTICStyle Lynne 14 Day [place]) tid testing flash glucose sensor (NEMOPTICStyle [place]ne 14 Day Sensor kit) TID testing gabapentin 300 mg PO TID losartan 25 mg PO DAILY metformin ER 500 mg PO DAILY omega-3 acid ethyl esters 1 cap PO BID oxcarbazepine 300 mg PO BID sulfamethoxazole-trimethoprim 800-160 mg (Bactrim DS) 1 tab PO BID 14 days HPI Comments Details: Car is a pleasant 48-year-old male patient of Dr. rBowning. He has a past medical history of stroke, gout, diverticulitis, fatty liver, splenomegaly, obstructive sleep apnea on CPAP, asthma, migraines, ADHD, bipolar, anxiety, type 2 diabetes, hypertension, hyperlipidemia, vitamin-D deficiency, and obesity. He presents to the office today for ongoing scrotal discomfort he has been experiencing. He reports having followed up with his PCP approximately 3 months ago at which time a scrotal ultrasound was ordered and performed. These results were reviewed with the patient today. Bilateral testes vascular flow visualized. Trace right-sided hydrocele. Left epididymal head cysts measuring approximately 3mm. In assessment of the patient today left-sided epididymal head tenderness noted on exam. Small right-sided hydrocele was palpated otherwise no open areas, lesions, or drainage noted. He currently feels as pain is intermittent. When asked he does report having tried [id number] Motrin and ice and felt this was helpful in relieving discomfort. He has a previous history of a vasectomy. He otherwise denies any bothersome urinary issues or concerns. He denies urinary urgency, urinary frequency, incontinence, nocturia, hematuria, dysuria, foul smelling urine, changes to urinary stream, flank pain, fever, and or chills. He is happy with his current voiding parameters. In office urinalysis results reviewed with the patient today. Discussed at length potential for epididymitis given physical exam today. He otherwise offers no other issues or concerns at this time. [facility] Medical History Encephalomalacia with cerebral infarction Stroke Gout Diverticulitis Fatty liver Splenomegaly Hypertriglyceridemia ANAYA on CPAP Mild asthma Ophthalmic migraine Heel spur ADHD Bipolar disorder Anxiety Type 2 diabetes mellitus with diabetic polyneuropathy, with long-term current use of insulin Essential hypertension Hyperlipidemia LDL goal <100 Vitamin D deficiency Obesity due to excess calories BMI 37.0-37.9, adult Type 2 diabetes mellitus with hyperglycemia Surgical History History of foot surgery History of hernia repair History of colectomy Family History Father Diabetes mellitus Mental health disorder Mother HTN (hypertension) Maternal Uncle Diabetes mellitus Substance use disorder Mental health disorder Paternal Grandmother Diabetes mellitus Social History Household Members: Children Housing: House Patient Tobacco Use Status: Current everyday Tobacco user Tobacco use type: Cigarette Cigarettes Per Day: 8 Years Smoked: 25 e-Cigarette/Vaping Use: Currently Using Second Hand Smoke Exposure: No Substance Use Type: Marijuana service: No Current occupational status: disabled Cognitive needs: No Hearing needs: No Vision needs: No Review of Systems Const Reports no additional complaints Eyes Reports no additional complaints ENT Reports no additional complaints Card Reports as per HPI Resp Reports as per HPI GI Reports as per HPI Reports as per HPI Musc Reports no additional complaints Neuro Reports as per HPI Psych Reports as per HPI Endo Reports as per HPI Maycol/Lymph Reports no additional complaints Aller/Immun Reports no additional complaints Physical Exam Const General: cooperative, healthy appearing, comfortable, no acute distress, well developed, alert and awake Nutritional Appearance: overweight Orientation/consciousness: patient oriented x3 Limitations: no limitations HEENT Head: Yes normal to inspection, Yes normocephalic and Yes atraumatic Ears: hearing grossly normal bilaterally Eyes General: appearance normal, both eyes and all related structures Neck Neck: Yes normal visual inspection and Yes trachea midline Chest Chest palpation & inspection: normal inspection of the chest Resp Effort & Inspection: normal respiratory effort and able to speak in complete sentences Cardio Rate: regular rate GI Inspection: Yes normal to inspection Other: as per HPI General: Yes no CVA tenderness Back/Spine/Pelvis Back: no CVA tenderness Skin General skin exam: no rashes or lesions noted Neuro General: patient oriented x3 Extrem General: Yes normal to inspection Psych Appearance: grossly normal and well kempt Mental Status: mental status grossly normal Speech and movement: Normal speech and movement present and Clear speech present Affect: normal affect Attitude: cooperative Thought process: Normal thought process present Thought content: Normal thought content present Insight: Fair insight present (Psych) Judgement: Fair judgement present (Psych) Results AMB Urinalysis, Automated UA Leukoctes 0 Elizabeth/uL Last Edit by [employer] on 08/04/23 10:08 UA Nitrite Negative Last Edit by [employer] on 08/04/23 10:08 UA Urobilinogen 0.2 mg/dL Last Edit by [employer] on 08/04/23 10:08 UA Protein 0 mg/dL Last Edit by [employer] on 08/04/23 10:08 UA pH 6.5 Last Edit by [employer] on 08/04/23 10:08 UA Blood 0 Geoffrey/uL Last Edit by [employer] on 08/04/23 10:08 UA Specific [place] 1.015 Last Edit by [employer] on 08/04/23 10:08 UA Ketone Negative Last Edit by [employer] on 08/04/23 10:08 UA Bilirubin 0 mg/dL Last Edit by [employer] on 08/04/23 10:08 UA Glucose 0 mg/dL Last Edit by [employer] on 08/04/23 10:08 Results Reviewed Results Reviewed: Laboratory Last Values Urine pH (Auto) 6.5 08/04/23 10:01 Specific [place] (Auto) 1.015 08/04/23 10:01 Urine Protein (Auto) 0 mg/dL 08/04/23 10:01 Glucose (UA)(Auto) 0 mg/dL 08/04/23 10:01 Urine Ketones (Auto) Negative 08/04/23 10:01 Urine Blood (Auto) 0 Geoffrey/uL 08/04/23 10:01 Urine Nitrite (Auto) Negative 08/04/23 10:01 Urine Bilirubin (Auto) 0 mg/dL 08/04/23 10:01 Urine Urobilinogen (Auto) 0.2 mg/dL 08/04/23 10:01 Leukocyte Esterase (Auto) 0 Elizabeth/uL 08/04/23 10:01 Date of Service: 06/02/23 EXAMINATION: US SCROTUM FINDINGS: RIGHT: Right testicle measures 6.1 x 2.7 x 3.6 cm, volume 31.1 mL. No focal testicular parenchymal lesions are visualized. Spectral Doppler analysis of the arterial and venous flow is normal in the right testis. Right epididymal head is normal in size. No right varicocele is seen. Right epididymal Doppler flow is normal. Trace right-sided hydrocele LEFT: Left testicle measures 6.0 x 2.8 x 3.9 cm, volume 34.3 mL. No focal testicular parenchymal lesions are visualized. Spectral Doppler analysis of the arterial and venous flow is normal in the left testis. Left epididymal head is normal in size. Left epididymal head cyst measuring 3 mm. No left hydrocele or varicocele is seen. Left epididymal Doppler flow is normal. IMPRESSION: 1. Bilateral testicular vascular flow visualized. 2. Trace right-sided hydrocele. 3. Left epididymal head cyst measuring 3 mm. Assessment & Plan Assessment & Plan (1) Epididymitis: Code(s): N45.1 - Epididymitis Category: Medical Plan In office urinalysis results reviewed with the patient today; as noted above. Recent scrotal ultrasound results reviewed with the patient today; as noted above. Discussed continuation of OTC ice/heat/Tylenol/and or Motrin for pain relief as this has been helpful. Start Bactrim as discussed and prescribed. He denies any bothersome urinary issues or concerns. He is happy with his current voiding parameters. Discussed at length potential causes of scrotal discomfort patient is experiencing. Follow-up in 1-2 months; if not sooner with any issues, concerns, and or questions. Orders: Orders AMB Urinalysis Automated Today Z13.9 - Encounter for screening, unspecified Medications: New sulfamethoxazole-trimethoprim 800-160 mg (Bactrim DS) 1 tab PO BID 14 days 28 tabs 0RF N45.1 - Epididymitis Patient Instructions: The patient had an opportunity to ask questions regarding the treatment plan. All questions were answered. Physical exam, labs, and imaging were discussed and reviewed in detail. As well as risks, benefits, and discussion of treatment choices. No major barriers to understanding were identified. The patient expressed understanding and agreement with the above treatment plan. The patient was made aware they should contact our office by phone for worsening of their current condition, the appearance of new symptoms, or with any questions or concerns. Compliance is encouraged with any medications and follow up testing that is ordered. It is a privilege to be allowed the opportunity to participate in? your urological care.? Again, if you have any questions or concerns If you have any questions or concerns please do not hesitate to contact me. The office is [phone]. This note is constructed using voice recognition software. While every effort has been made to ensure accuracy metal tile lather errors may have been included. Yours sincerely, MORE Haji Coding Level of Care Code New Pt Level 4 (36881) Diagnoses Epididymitis N45.1
== END 2023-08-04 10:35 | disposition home or self-care (01) ==
PROVIDERS: PCP Nurse Practitioner Family; Visit Provider Nurse Practitioner Family
DX: Z13.9 Encounter for screening, unspecified (principal); N45.1 Epididymitis
CPT/HCPCS: 99204

== ENCOUNTER → 2023-08-04 09:50 | Outpatient (BNVA) | payer OTHER, SELFPAY | PROVIDERS: PCP Nurse Practitioner Family; Visit Provider Nurse Practitioner Family | DX: N45.1 Epididymitis (principal) | CPT/HCPCS: 81003; 99202 ==

== ENCOUNTER 2023-09-24 10:36 | Outpatient (AMB) | payer OTHER, SELFPAY ==
--- NOTE | 2023-09-24 11:33 | MHC.OFFVIS ---
Intake Visit Reasons: 1m follow up Intake Note: Patient presents today for follow up on: right sided hydrocele/cyst Urology Medications: prev treated with bactrim, none Blood Thinner: aspirin Education Administrator Required: No Accompanied by: Self / Same As Patient Allergies doxycycline Allergy (Verified 09/24/23 12:10) Itching Medication List - Last Reconciled 09/24/23 by CONSTANTIN Haji- albuterol sulfate 90 mcg/actuation 2 puffs inhalation Q6H PRN 30 days alpha lipoic acid 600 mg PO Q24H aspirin 81 mg PO DAILY 90 days atorvastatin 20 mg PO BEDTIME azelaic acid 15% (Finacea) 1 appl topical BID 90 days blood sugar diagnostic (FreeStyle Precision Blaze Strips) 1 strip miscellaneous DAILY blood sugar diagnostic (FreeStyle Lite Strips) bid testing bupropion HCl XL 150 mg PO DAILY cane straight, single legged cane cholecalciferol (vitamin D3) 50 mcg PO DAILY 90 days clonazepam mg PO dulaglutide 0.75 mg (0.5 mL) subcut QWEEK dulaglutide (Trulicity) mg subcut flash glucose scanning reader (FreeStyle Lynne 14 Day [place]) tid testing flash glucose sensor (FreeStyle Lynne 14 Day Sensor kit) TID testing gabapentin 300 mg PO TID losartan 25 mg PO DAILY meloxicam 15 mg PO DAILY 30 days metformin ER 500 mg PO DAILY omega-3 acid ethyl esters 1 cap PO BID oxcarbazepine 300 mg PO BID [Standard hand held cane to use when ambulating ] HPI Comments Details: Car is a pleasant 48-year-old male patient of Dr. Browning. He has a past medical history of stroke, gout, diverticulitis, fatty liver, splenomegaly, obstructive sleep apnea on CPAP, asthma, migraines, ADHD, bipolar, anxiety, type 2 diabetes, hypertension, hyperlipidemia, vitamin-D deficiency, and obesity. He presents to the office today for ongoing scrotal discomfort he has been experiencing. Of note, patient was seen approximately 6 weeks ago at which time he was treated with Bactrim for presumed epididymitis. In discussion with the patient today he reports no improvement in intermittent scrotal discomfort he has been experiencing. He reports there are days that he has no pain however days that when pain does occur he feels it is extremely bothersome. Previous workup has included a scrotal ultrasound noting bilateral testes vascular flow visualized. Trace right-sided hydrocele. Left epididymal head cysts measuring approximately 3mm. When asked he does report having tried [id number] Motrin and ice and felt this was helpful in relieving discomfort however does not feel he should be reliant on OTC measures. He has a previous history of a vasectomy. He otherwise denies any bothersome urinary issues or concerns. He denies urinary urgency, urinary frequency, incontinence, nocturia, hematuria, dysuria, foul smelling urine, changes to urinary stream, flank pain, fever, and or chills. He is happy with his current voiding parameters. In office urinalysis results reviewed with the patient today. He otherwise offers no other issues or concerns at this time. [facility] Medical History Encephalomalacia with cerebral infarction Stroke Gout Diverticulitis Fatty liver Splenomegaly Hypertriglyceridemia ANAYA on CPAP Mild asthma Ophthalmic migraine Heel spur ADHD Bipolar disorder Anxiety Type 2 diabetes mellitus with diabetic polyneuropathy, with long-term current use of insulin Essential hypertension Hyperlipidemia LDL goal <100 Vitamin D deficiency Obesity due to excess calories BMI 37.0-37.9, adult Type 2 diabetes mellitus with hyperglycemia Surgical History History of foot surgery History of hernia repair History of colectomy Family History Father Diabetes mellitus Mental health disorder Mother HTN (hypertension) Maternal Uncle Diabetes mellitus Substance use disorder Mental health disorder Paternal Grandmother Diabetes mellitus Social History Household Members: Children Housing: House Patient Tobacco Use Status: Current everyday Tobacco user Tobacco use type: Cigarette Cigarettes Per Day: 8 Years Smoked: 25 e-Cigarette/Vaping Use: Currently Using Second Hand Smoke Exposure: No Substance Use Type: Marijuana service: No Current occupational status: disabled Cognitive needs: No Hearing needs: No Vision needs: No Review of Systems Const Reports no additional complaints Eyes Reports no additional complaints ENT Reports no additional complaints Card Reports as per HPI Resp Reports as per HPI GI Reports as per HPI Reports as per HPI Musc Reports no additional complaints Neuro Reports as per HPI Psych Reports as per HPI Endo Reports as per HPI Maycol/Lymph Reports no additional complaints Aller/Immun Reports no additional complaints Physical Exam Const General: cooperative, healthy appearing, comfortable, no acute distress, well developed, alert and awake Nutritional Appearance: overweight Orientation/consciousness: patient oriented x3 Limitations: no limitations HEENT Head: Yes normal to inspection, Yes normocephalic and Yes atraumatic Ears: hearing grossly normal bilaterally Eyes General: appearance normal, both eyes and all related structures Neck Neck: Yes normal visual inspection and Yes trachea midline Chest Chest palpation & inspection: normal inspection of the chest Resp Effort & Inspection: normal respiratory effort and able to speak in complete sentences Cardio Rate: regular rate GI Inspection: Yes normal to inspection Other: as per HPI General: Yes no CVA tenderness Back/Spine/Pelvis Back: no CVA tenderness Skin General skin exam: no rashes or lesions noted Neuro General: patient oriented x3 Extrem General: Yes normal to inspection Psych Appearance: grossly normal and well kempt Mental Status: mental status grossly normal Speech and movement: Normal speech and movement present and Clear speech present Affect: normal affect Attitude: cooperative Thought process: Normal thought process present Thought content: Normal thought content present Insight: Fair insight present (Psych) Judgement: Fair judgement present (Psych) Results AMB Urinalysis, Automated UA Leukoctes 0 Elizabeth/uL Last Edit by [employer] on 09/24/23 11:40 UA Nitrite Negative Last Edit by [employer] on 09/24/23 11:40 UA Urobilinogen 0.2 mg/dL Last Edit by [employer] on 09/24/23 11:40 UA Protein 15 mg/dL Last Edit by [employer] on 09/24/23 11:40 UA pH 6.0 Last Edit by [employer] on 09/24/23 11:40 UA Blood 0 Geoffrey/uL Last Edit by [employer] on 09/24/23 11:40 UA Specific [place] 1.015 Last Edit by [employer] on 09/24/23 11:40 UA Ketone Negative Last Edit by [employer] on 09/24/23 11:40 UA Bilirubin 0 mg/dL Last Edit by [employer] on 09/24/23 11:40 UA Glucose 0 mg/dL Last Edit by [employer] on 09/24/23 11:40 Results Reviewed Results Reviewed: Laboratory Last Values Urine pH (Auto) 6.0 09/24/23 11:39 Specific [place] (Auto) 1.015 09/24/23 11:39 Urine Protein (Auto) 15 mg/dL 09/24/23 11:39 Glucose (UA)(Auto) 0 mg/dL 09/24/23 11:39 Urine Ketones (Auto) Negative 09/24/23 11:39 Urine Blood (Auto) 0 Geoffrey/uL 09/24/23 11:39 Urine Nitrite (Auto) Negative 09/24/23 11:39 Urine Bilirubin (Auto) 0 mg/dL 09/24/23 11:39 Urine Urobilinogen (Auto) 0.2 mg/dL 09/24/23 11:39 Leukocyte Esterase (Auto) 0 Elizabeth/uL 09/24/23 11:39 Assessment & Plan Assessment & Plan (1) Orchitis: Code(s): N45.2 - Orchitis Category: Medical (2) Epididymitis: Code(s): N45.1 - Epididymitis Category: Medical (3) Pain in scrotum: Code(s): N50.82 - Scrotal pain Category: Medical (4) Testicular pain: Code(s): N50.819 - Testicular pain, unspecified Category: Medical Plan In office urinalysis results reviewed with the patient today; as noted above. Discussed at length causes of generalized scrotal pain patient is experiencing. Reassurance provided. Patient currently denies any bothersome urinary issues or concerns. He reports be happy with current voiding parameters. Start Mobic as discussed prescribed; discussed this is a NSAID therefore no OTC Motrin, ibuprofen, and or Aleve or other NSAID products/medications. Follow-up with Dr. Tena for further/ possible intervention; or sooner with any issues, concerns, and or questions. Orders: Orders AMB Urinalysis Automated 09/24/23 Z13.9 - Encounter for screening, unspecified Medications: New meloxicam 15 mg PO DAILY 30 days 30 tabs 2RF R10.31 - Right lower quadrant pain, R10.32 - Left lower quadrant pain Patient Instructions: The patient had an opportunity to ask questions regarding the treatment plan. All questions were answered. Physical exam, labs, and imaging were discussed and reviewed in detail. As well as risks, benefits, and discussion of treatment choices. No major barriers to understanding were identified. The patient expressed understanding and agreement with the above treatment plan. The patient was made aware they should contact our office by phone for worsening of their current condition, the appearance of new symptoms, or with any questions or concerns. Compliance is encouraged with any medications and follow up testing that is ordered. It is a privilege to be allowed the opportunity to participate in? your urological care.? Again, if you have any questions or concerns If you have any questions or concerns please do not hesitate to contact me. The office is [phone]. This note is constructed using voice recognition software. While every effort has been made to ensure accuracy cloth hand errors may have been included. Yours sincerely, MORE Haji Coding Level of Care Code Est Pt Level 4 (82894) Diagnoses Orchitis N45.2 Epididymitis N45.1 Pain in scrotum N50.82 Testicular pain N50.819
== END 2023-09-24 12:02 | disposition home or self-care (01) ==
PROVIDERS: PCP Nurse Practitioner Family; Visit Provider Nurse Practitioner Family
DX: N45.2 Orchitis (principal); N45.1 Epididymitis; N50.82 Scrotal pain; N50.819 Testicular pain, unspecified
CPT/HCPCS: 99214

== ENCOUNTER → 2023-09-24 10:36 | Outpatient (BNVA) | payer OTHER, SELFPAY | PROVIDERS: PCP Nurse Practitioner Family; Visit Provider Nurse Practitioner Family | DX: N45.2 Orchitis (principal); N45.1 Epididymitis; N50.82 Scrotal pain; N50.819 Testicular pain, unspecified | CPT/HCPCS: 81003; 99212 ==

== ENCOUNTER 2023-11-22 09:56 | Outpatient (AMB) | payer OTHER, SELFPAY ==
--- NOTE | 2023-11-22 10:06 | MHC.PC.OV ---
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 He reports that his significant other tested positive for COVID. Will swab for COVID/flu/RSV. Denies fever, chills, chest pain, and shortness of breath. Pt is a diabetic, on an ARB. A1C in office today is 5.7. Due for microalbumin next month, will order. Denies polyuria, polydipsia, does report neuropathy. Pt denies any signs and symptoms of hypoglycemia and does know how to correct it. Eye exam is up to date. Pt has a cane due to dizziness. He reports difficulty using this. Will refer to OT for assistance with this, education on use. Pt reports stopping his statin, he will restart this. [facility] Medical History Encephalomalacia with cerebral infarction Stroke Gout Diverticulitis Fatty liver Splenomegaly Hypertriglyceridemia ANAYA on CPAP Mild asthma Ophthalmic migraine Heel spur ADHD Bipolar disorder Anxiety Type 2 diabetes mellitus with diabetic polyneuropathy, with long-term current use of insulin Essential hypertension Hyperlipidemia LDL goal <100 Vitamin D deficiency Obesity due to excess calories BMI 37.0-37.9, adult Type 2 diabetes mellitus with hyperglycemia Surgical History History of foot surgery History of hernia repair History of colectomy Family History Father Diabetes mellitus Mental health disorder Mother HTN (hypertension) Maternal Uncle Diabetes mellitus Substance use disorder Mental health disorder Paternal Grandmother Diabetes mellitus Social History Household Members: Children Housing: House Patient Tobacco Use Status: Current everyday Tobacco user Tobacco use type: Cigarette Cigarettes Per Day: 8 Years Smoked: 25 e-Cigarette/Vaping Use: Currently Using Second Hand Smoke Exposure: No Substance Use Type: Marijuana service: No Current occupational status: disabled Cognitive needs: No Hearing needs: No Vision needs: No Questionnaire PHQ-9 Over the last 2 weeks, how often have you been bothered by any of the following problems? 1. Little interest or pleasure in doing things: several days 2. Feeling down, depressed, or hopeless: nearly every day 3. Trouble falling or staying asleep, or sleeping too much: more than half the days 4. Feeling tired or having little energy: more than half the days 5. Poor appetite or overeating: more than half the days 6. Feeling bad about yourself - or that you are a failure or have let yourself or your family down: more than half the days 7. Trouble concentrating on things, such as reading the newspaper or watching television: more than half the days 8. Moving or speaking so slowly that other people could have noticed. Or the opposite - being so fidgety or restless that you have been moving around a lot more than usual: more than half the days 9. Thoughts that you would be better off or of hurting yourself in some way: more than half the days Total score: 18 Depression Screening Interpretation: Positive (denies any SI or HI) Depression Screening Follow-up: Existing condition and In treatment Depression Screening Done: Yes Source: Developed by Drs. Israel Kiser, Zainab Barajas, Alfredo Yang and colleagues, with an educational florencio from [employer]. Thrive Questionnaire Date Thrive assessed: 11/18/23 I am a: Patient What is your living situation today?: I have a place to live, but I am worried about losing it in the future Within the past 12 months, did the food you bought not last and you didn't have the money to get more?: Sometimes True Within the past 12 months, did you worry whether your food would run out before you got money to buy more?: Sometimes True Do you have trouble paying for medicines?: I choose not to answer this question Do you have trouble getting transportation to medical appointments?: Yes Do you have trouble paying your heating and electricity bill?: I choose not to answer this question Do you have trouble taking care of your child, family member or friend?: No Do you have trouble with day-to-day activities such as bathing, preparing meals, shopping, managing finances, etc.?: Yes Are you currently unemployed and looking for a job?: No Are you interested in more education?: No Please select the resources that you would like help with: None Currently or been in a relationship where the following occur: I choose not to answer THRIVE Score: 4 AUDIT C Alcohol Use Questionnaire (AUDIT-C) 1. How often do you have a drink containing alcohol?: Monthly or less 2. How many drinks containing alcohol do you have on a typical day when you are drinking?: 1 or 2 3. How often do you have six or more drinks on one occasion?: Never Total Score: 1 MANOLO-7 AMB Questionnaire MANOLO-7 Date MANOLO - 7 assessed: 11/13/21 Feeling nervous, anxious, or on edge: 3 = Nearly every day Not being able to stop or control worryin = Nearly every day Worrying too much about different things: 3 = Nearly every day Trouble relaxin = Nearly every day Being so restless that it is hard to sit still: 3 = Nearly every day Becoming easily annoyed or irritable: 3 = Nearly every day Feeling afraid as if something awful might happen: 3 = Nearly every day Total MANOLO-7 score (0-4 normal; 5-9 mild; 10-14 moderate; 15-21 severe): 21 Source: Developed by Drs. Israel Kiser, Zainab Barajas, Alfredo Yang and colleagues, with an educational florencio from [employer]. MANOLO-7 Assessment Billing AMNOLO-7 Assessment Tool: MANOLO-7 Assessment 54424 (denies any SI or HI) Review of Systems Const Reports as per HPI Physical exam (Primary Care) Vital Signs: Last Vital Signs Pulse 63 11/22/23 10:08 BP 122/80 11/22/23 10:08 Pulse Ox 98 11/22/23 10:08 Oxygen Delivery Method Room Air 11/22/23 10:08 BMI result Body Mass Index 37.2 Tobacco/Smoking Status: Tobacco use Status Tobacco use date assessed 07/06/23 11/22/23 10:08 Patient Tobacco Use Status Current everyday Tobacco 11/22/23 10:08 Tobacco use type Cigarette 11/22/23 10:08 e-Cigarette/Vaping Use Currently Using 11/22/23 10:08 PHQ-9: PHQ-9 Score PHQ-9: Total score 18 11/22/23 10:22 Depression Screening Interpretation: Positive (denies any SI or HI) Depression Screening Follow-up: Existing condition and In treatment Thrive Assessment: Date of Thrive Assessment Date Thrive assessed 11/18/23 11/22/23 10:08 Currently or been in a relationship where the following occur: I choose not to answer Const General: cooperative Orientation/consciousness: patient oriented x3 Resp Effort & Inspection: normal respiratory effort Auscultation: clear to auscultation bilaterally Neuro General: patient oriented x3 Extrem Other: bilat feet: hypersensitive with use of monofilament, feet intact Psych Appearance: grossly normal Mental Status: mental status grossly normal Speech and movement: Normal speech and movement present Affect: normal affect Attitude: cooperative Thought process: Normal thought process present Thought content: Normal thought content present Insight: Good insight present (Psych) Judgement: Good judgement present (Psych) Results AMB Hemoglobin A1c AMB Hemoglobin A1c 5.7 % Last Edit by Hunter Brown CMA on 11/22/23 10:25 Results Reviewed Results Reviewed: Laboratory Last Values Hgb A1c (Clinic) 5.7 % (4.0-6.0) 11/22/23 10:19 Assessment and Plan Assessment & Plan (1) Cough: Code(s): R05.9 - Cough, unspecified Plan: Swabbed for COVID/flu/RSV (2) Upper respiratory infection: Code(s): J06.9 - Acute upper respiratory infection, unspecified Plan: Swabbed for COVID/flu/RSV (3) Dizziness: Code(s): R42 - Dizziness and giddiness Plan: Referred to OT for assistance with cane, referred to neuro already (4) Diabetes with neurologic complications: Code(s): E11.49 - Type 2 diabetes mellitus with other diabetic neurological complication Plan: A1C done in office, continue current meds Plan The patient agreed to the use of a lpn medical assistant for this encounter. Scribed for MORE Amaya by nilsa Triplett scribe, on 11/22/2023 at 10:30 EST. 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
[2023-11-22 10:08] VITALS: BP 122/80; PULSE 63; O2SAT 98; BMI 37.2
== END 2023-11-22 11:23 | disposition home or self-care (01) ==
PROVIDERS: PCP Nurse Practitioner Family; Visit Provider Nurse Practitioner Family
DX: R05.9 Cough, unspecified (principal); J06.9 Acute upper respiratory infection, unspecified; R42 Dizziness and giddiness; E11.49 Type 2 diabetes mellitus with other diabetic neurological complication
CPT/HCPCS: 83036; 99213

== ENCOUNTER 2023-11-22 10:34 | Outpatient (REF) | payer OTHER, SELFPAY ==
[2023-11-22 14:27] LABS: Influenza A PCR NEGATIVE (Negative); Influenza B PCR NEGATIVE (Negative); Resp Syncy Virus RNA Qual PCR NEGATIVE (Negative); SARS COV2 PCR INHOUSE POSITIVE (Negative)
== END 2023-11-22 10:35 | disposition home or self-care (01) ==
LOC: HO.LNP 10:34
PROVIDERS: Visit Provider Nurse Practitioner Family
DX: J06.9 Acute upper respiratory infection, unspecified (principal); R05.9 Cough, unspecified
CPT/HCPCS: 0241U

== ENCOUNTER 2023-11-25 08:50 | Outpatient (AMB) | payer OTHER, SELFPAY ==
--- NOTE | 2023-11-25 08:55 | A.OFFVIS_ITS ---
Intake Visit Reasons: 2m follow up-Left epididymal head cysts Intake Note: Patient presents today for follow up on: right sided hydrocele/cyst Urology Medications: Meloxicam Blood Thinner: aspirin Director Volunteer Services Required: No Accompanied by: Self / Same As Patient Allergies doxycycline Allergy (Verified 11/25/23 09:09) Itching HPI Comments Details: Vaibhav is a pleasant male. He is a patient of Dr. Rodriguez. He is seen for the following urologic conditions - scrotal discomfort and pain Two month follow-up from initial assessment Still with occasional sudden-onset transient testicular pain Discussed use of diaphragmatic breathing Scrotal orchalgia Prior ultrasound - left epididymal cysts small Denies other lower urinary tract symptoms Prior episode of epididymitis 07/24/2023 COUNT INCLUDES THE [facility] Medical History Encephalomalacia with cerebral infarction Stroke Gout Diverticulitis Fatty liver Splenomegaly Hypertriglyceridemia ANAYA on CPAP Mild asthma Ophthalmic migraine Heel spur ADHD Bipolar disorder Anxiety Type 2 diabetes mellitus with diabetic polyneuropathy, with long-term current use of insulin Essential hypertension Hyperlipidemia LDL goal <100 Vitamin D deficiency Obesity due to excess calories BMI 37.0-37.9, adult Type 2 diabetes mellitus with hyperglycemia Surgical History History of foot surgery History of hernia repair History of colectomy Family History Father Diabetes mellitus Mental health disorder Mother HTN (hypertension) Maternal Uncle Diabetes mellitus Substance use disorder Mental health disorder Paternal Grandmother Diabetes mellitus Social History Household Members: Children Housing: House Patient Tobacco Use Status: Current everyday Tobacco user Tobacco use type: Cigarette Cigarettes Per Day: 8 Years Smoked: 25 e-Cigarette/Vaping Use: Currently Using Second Hand Smoke Exposure: No Substance Use Type: Marijuana service: No Current occupational status: disabled Cognitive needs: No Hearing needs: No Vision needs: No Review of Systems Const Denies chills and Denies fever(s) Card Reports no additional complaints and Denies syncope Resp Denies cough GI Denies abdominal pain and Denies heartburn Reports as per HPI and Denies change in libido Neuro Denies syncope Psych Denies change in libido Endo Denies change in libido Physical Exam Const General: cooperative, healthy appearing, comfortable and no acute distress Orientation/consciousness: patient oriented x3 HEENT Face and sinus: Yes normal facial exam Mouth: moist mucous membranes Neck Neck: Yes normal visual inspection, Yes full ROM and Yes trachea midline Chest Chest palpation & inspection: normal inspection of the chest Resp Effort & Inspection: normal respiratory effort, able to speak in complete sentences and no respiratory distress GI Inspection: Yes normal to inspection Back/Spine/Pelvis Cervical Spine: normal cervical lordosis Thoracic/Lumbar Spine: thoracic and lumbar spine normal to inspection Skin General skin exam: no rashes or lesions noted Neuro General: patient oriented x3, gait normal, tone normal and moves all extremities Extrem General: Yes normal to inspection and Yes capillary refill normal Assessment & Plan Assessment & Plan (1) Testicular pain: Code(s): N50.819 - Testicular pain, unspecified Category: Medical Plan P.r.n. follow-up Patient Instructions: Imaging studies, laboratory and physical exam results were discussed and reviewed in detail. No major barriers to patient understanding were identified. An opportunity to ask questions regarding the treatment plan was provided. All questions were answered. The patient expressed understanding and agreement with the above treatment plan. The patient is aware they should contact our office by phone for worsening of their current condition or the appearance of new urologic symptoms. Compliance is encouraged with any medications and followup testing that is ordered. It is a privilege to participate in the urologic care of your patient. If you have any questions or concerns regarding treatment for the above conditions, or other urologic issues, please do not hesitate to contact me. The office telephone contact is [phone]. This note is constructed using voice recognition software. While every effort has been made to ensure accuracy hot dog vendor errors may have been included. Yours sincerely, Dr Darron Tena MD, [place] [facility] - Urology Providers of Expert, Compassionate Care for the Genitourinary System Coding Level of Care Code Est Pt Level 3 (37386) Diagnoses Testicular pain N50.819
== END 2023-11-25 09:16 | disposition home or self-care (01) ==
PROVIDERS: PCP Nurse Practitioner Family; Visit Provider Urology
DX: N50.819 Testicular pain, unspecified (principal)
CPT/HCPCS: 99213

== ENCOUNTER → 2023-11-25 08:50 | Outpatient (BNVA) | payer OTHER, SELFPAY | PROVIDERS: PCP Nurse Practitioner Family; Visit Provider Urology | DX: N50.819 Testicular pain, unspecified (principal); N50.3 Cyst of epididymis | CPT/HCPCS: 99212 ==

== ENCOUNTER 2023-12-15 15:33 | Outpatient (AMB) | payer OTHER, SELFPAY ==
--- NOTE | 2023-12-15 15:36 | MHC.OFFWIV ---
Intake Vital Signs 12/15/23 15:37 Height 6 ft 2 in Weight 291 lb BMI 37.4 BP 130/80 Blood Pressure Location Rt brachial Position Sitting Pulse 77 Pulse Source Pulse Oximeter Pulse Oximetry (%) 99 Oxygen Delivery Method Room Air Intake Visit Reasons: EP-Nauseas, urine problems Intake Note: Patient here because he woke up and noticed he soiled himself at 4am, and then noticed he had lower abdominal pain that was preventing him from just even leaning over. Patient Tobacco Use Status: Current everyday Tobacco user Allergies doxycycline Allergy (Verified 12/15/23 15:42) Itching Do you need a note to return to daycare/school/sports/work: No HPI HPI Comments History of Present Illness Details Pt is a 48yo M who presents to office with urine and abdominal complaint Hx of scrotal/abdominal pain in past. Last scrotal US showed Trace right-sided hydrocele and a Left epididymal head cyst measuring 3 mm He presents today with complaint of urine incontinence and abdominal pain He woke up at 4am after urinary incontinence + strong urine smell ongoing x 4-5 days with associated urgency No hematuria, dysuria or frequency This am he leaned over counter and sharp severe RLQ pain immediately Pain improved with time but said recurrent R sided lower abdominal pain in same place at rest throughout the day today + nausea since without vomiting He has hx of diabetes and has not been checking sugars; last time checked 2 weeks ago He has been better lately and on metformin and trulicity Currently 2/10 pain in abdomen but a lot of nausea Denies fever/chills No CP or SOB + hx of multiple hernia surgeries States no BM today but + flatuance. No brbpr or melena Admits to ongoing intermittent testicular discomfort which he was given meloxicam for; + unchanged PFSH Medical History Encephalomalacia with cerebral infarction Stroke Gout Diverticulitis Fatty liver Splenomegaly Hypertriglyceridemia ANAYA on CPAP Mild asthma Ophthalmic migraine Heel spur ADHD Bipolar disorder Anxiety Type 2 diabetes mellitus with diabetic polyneuropathy, with long-term current use of insulin Essential hypertension Hyperlipidemia LDL goal <100 Vitamin D deficiency Obesity due to excess calories BMI 37.0-37.9, adult Type 2 diabetes mellitus with hyperglycemia Surgical History History of foot surgery History of hernia repair History of colectomy Family History Father Diabetes mellitus Mental health disorder Mother HTN (hypertension) Maternal Uncle Diabetes mellitus Substance use disorder Mental health disorder Paternal Grandmother Diabetes mellitus Social History Household Members: Children Housing: House Patient Tobacco Use Status: Current everyday Tobacco user Tobacco use type: Cigarette Cigarettes Per Day: 8 Years Smoked: 25 e-Cigarette/Vaping Use: Currently Using Second Hand Smoke Exposure: No Substance Use Type: Marijuana service: No Current occupational status: disabled Cognitive needs: No Hearing needs: No Vision needs: No Review of Systems Const Denies chills and Denies fever(s) ENT Denies nasal discharge and Denies sore throat Card Denies chest pain and Denies dyspnea Resp Denies cough and Denies dyspnea GI Reports abdominal pain, Denies melena, Denies hematochezia, Denies change in bowel habits, Denies constipation, Denies diarrhea, Reports nausea and Denies vomiting Reports difficulty urinating, Denies genital lesions, Reports testicular pain, Denies urinary frequency, Denies urinary hesitancy, Reports urinary incontinence and Reports urinary urgency Musc Denies back pain, Denies myalgias and Denies tingling Skin/Breast Denies rash Neuro Denies radicular pain, Denies tingling and Denies paresthesias Physical Exam Vital Signs: Last Vital Signs Pulse 77 12/15/23 15:37 BP 130/80 12/15/23 15:37 Pulse Ox 99 12/15/23 15:37 Oxygen Delivery Method Room Air 12/15/23 15:37 BMI result Body Mass Index 37.4 General: Non-toxic, NAD. Speaking full sentences. Skin: Warm dry throughout Eye: EOMI Respiratory: CTA bilaterally. No wheezes, rales or rhonchi Cardiac: RRR. No murmur Abdominal: BS present. No pain to light palpation throughout. + tenderness to deep palpation of bilaterally R and L lower quadrants. No umbillical tenderness to palpation. No rebound or guarding. Negative psoas and rosving signs. MSK: No midline spinal tenderness Neurology: A/O. No aphasia or facial droop. Gait without abnormality Psych: Good mood and affect Results AMB Hemoglobin A1c AMB Hemoglobin A1c Cancelled % Last Edit by Marilou White [facility] on 12/15/23 15:54 AMB Hemoglobin A1c previously reported as 129 Marilou White 12/15/23 15:54 CANCELLED error AMB Urinalysis, Automated UA Leukoctes 0 Elizabeth/uL Last Edit by Marilou White [facility] on 12/15/23 15:56 UA Nitrite Negative Last Edit by Marilou White [facility] on 12/15/23 15:56 UA Urobilinogen 0.2 mg/dL Last Edit by Marilou White [facility] on 12/15/23 15:56 UA Protein 0 mg/dL Last Edit by Marilou White [facility] on 12/15/23 15:56 UA pH 6.0 Last Edit by Marilou White [facility] on 12/15/23 15:56 UA Blood 0 Geoffrey/uL Last Edit by Marilou White [facility] on 12/15/23 15:56 UA Specific [place] 1.015 Last Edit by Marilou White [facility] on 12/15/23 15:56 UA Ketone Negative Last Edit by Marilou White [facility] on 12/15/23 15:56 UA Bilirubin 0 mg/dL Last Edit by Marilou White [facility] on 12/15/23 15:56 UA Glucose 0 mg/dL Last Edit by Marilou White [facility] on 12/15/23 15:56 Results Reviewed Results Reviewed: Laboratory Last Values Hgb A1c (Clinic) Cancelled 12/15/23 15:50 Urine pH (Auto) 6.0 12/15/23 15:50 Specific [place] (Auto) 1.015 12/15/23 15:50 Urine Protein (Auto) 0 mg/dL 12/15/23 15:50 Glucose (UA)(Auto) 0 mg/dL 12/15/23 15:50 Urine Ketones (Auto) Negative 12/15/23 15:50 Urine Blood (Auto) 0 Geoffrey/uL 12/15/23 15:50 Urine Nitrite (Auto) Negative 12/15/23 15:50 Urine Bilirubin (Auto) 0 mg/dL 12/15/23 15:50 Urine Urobilinogen (Auto) 0.2 mg/dL 12/15/23 15:50 Leukocyte Esterase (Auto) 0 Elizabeth/uL 12/15/23 15:50 Assessment & Plan Assessment & Plan (1) Abdominal pain: Code(s): R10.9 - Unspecified abdominal pain Qualifiers: Abdominal location: lower abdomen, unspecified Qualified Code(s): R10.30 - Lower abdominal pain, unspecified Plan: Patient seen and evaluated. U/A in office: negative blood, leuks, blood, nitrates or glucose POC glucose: 129 No neuro deficit or concern on exam. + lower abdominal pain on exam without acute abdomen. Concern due to symptoms and exam that he has + urinary retention and need for bladder scan with pre/post void residual. He is agreeable with going to ER and expect given to [facility] for concerns discussed above. Patient gave verbal understanding and had no additional questions or concerns at time of discharge All questions answered Orders: Orders AMB Random Glucose (hemocue) Today Z13.9 - Encounter for screening, unspecified AMB Urinalysis Automated Today Z13.9 - Encounter for screening, unspecified Coding Level of Care Code Est Pt Level 4 (24801) Diagnoses Lower abdominal pain R10.30 Abdominal location: lower abdomen, unspecified
[2023-12-15 15:37] VITALS: BP 130/80; PULSE 77; O2SAT 99; BMI 37.4
== END 2023-12-15 16:30 | disposition home or self-care (01) ==
PROVIDERS: PCP Nurse Practitioner Family; Visit Provider Physician Assistant
DX: R10.30 Lower abdominal pain, unspecified (principal)
CPT/HCPCS: 81003; 99214

== ENCOUNTER 2023-12-15 16:30 | Emergency (ER) | payer OTHER, SELFPAY ==
--- NOTE | ~2023-12-15 | CT_ITS ---
EXAMINATION: CT ABDOMEN AND PELVIS WITHOUT CONTRAST CLINICAL INFORMATION: Urinary issues with trouble peeing COMPARISON: CT abdomen and pelvis 06/02/2018 TECHNIQUE: Multidetector volumetric imaging was performed from the superior aspect of the liver through the pubic symphysis. Sagittal and coronal reformatted images were obtained on the technologist's workstation. This CT examination was performed using dose optimization techniques as appropriate, variously including the following: *Automated exposure control *Adjustment of mA and/or kV according to patient size (this includes techniques or standardized protocols for targeted exams where dose is matched to indication/reason for exam; i.e. extremities or head) *Use of iterative reconstruction technique DLP: 1138 mGy-cm FINDINGS: LUNG BASES: The visualized lung bases are unremarkable. An atrial septal closure device may be present. Some punctate granulomas are present at the right lung base. LIVER, GALLBLADDER, AND BILIARY TREE: The liver is normal in size, shape, and attenuation. No focal hepatic lesion or biliary ductal dilatation is present. The gallbladder is unremarkable with no evidence of radiopaque gallstones, gallbladder wall thickening, or obvious pericholecystic inflammatory changes. A phrygian cap is present. PANCREAS: Unremarkable. SPLEEN: Spleen is enlarged at 15.5 cm in greatest length ADRENAL GLANDS: Unremarkable. KIDNEYS AND URETERS: The kidneys are normal in size, shape, and attenuation. No hydronephrosis, hydroureter, or calculi seen. No perinephric stranding. BLADDER: Unremarkable. GASTROINTESTINAL TRACT: A sigmoid anastomosis is seen without obstruction. Colonic diverticulosis is present without diverticulitis The small and large bowel are unremarkable. There is no evidence of appendicitis. ABDOMINAL WALL: There is a prior anterior abdominal wall repair. There is a small left inguinal hernia seen containing only fat. LYMPH NODES: No retroperitoneal lymphadenopathy. VASCULAR: Unremarkable. PELVIC VISCERA: The prostate and seminal vesicles are unremarkable. OSSEOUS STRUCTURES: Marked degenerative changes present at L5-S1 with grade 1 anterolisthesis and bilateral pars defects at L5. As a hemangioma present in the T12 vertebral body. CT/CT abdomen pelvis wo IV con IMPRESSION: 1. An etiology for the patient's urinary tract issues has not been found. 2. Evidence of prior granulomatous disease with pulmonary granulomas. 3. Mild splenomegaly. 4. Sigmoid anastomosis without obstruction. 5. Colonic diverticulosis without diverticulitis. 6. Small left inguinal hernia containing only fat. 7. Degenerative changes L5-S1 with grade 1 anterolisthesis and bilateral pars defects. Fleischner guidelines were followed. Electronically signed by: Matt Funk MD 12/15/2023 06:58 PM EDT RP
[2023-12-15 16:34] VITALS: BP 151/93; PULSE 68; RESP 20; TEMP 36.3; O2SAT 96; BMI 38.5
--- NOTE | 2023-12-15 16:35 | ED.GENADULT ---
HPI - General Adult General Chief complaint: Urogenital-Male Stated complaint: urinary issues and pain Time Seen by Provider: 12/15/23 19:17 Source: patient, RN notes reviewed and old records reviewed Mode of arrival: ambulatory Limitations: no limitations History of Present Illness ED Provider: Maurice HPI narrative: 48-year-old male with past medical history significant for obesity, hypertension, type 2 diabetes, presents for evaluation abdominal pain with nausea. Patient reports that he had an episode of urinary incontinence last night which is unusual for him. He reports that he change the sheets and went back to bed This was around 4:00 a.m.. He reports that later in the morning he developed severe right lower abdominal pain that has since resolved The pain seemed to worse when he was leaning forward. He has associated nausea without vomiting He has had multiple previous abdominal surgeries including partial colectomy No fevers, chills. No other complaints or concerns at this time Related Data Home Medications ?Medication ?Instructions ?Recorded ?Confirmed oxcarbazepine 300 mg tablet 300 mg PO BID 10/21/22 09/24/23 clonazepam 0.5 mg tablet mg PO 05/28/23 09/24/23 losartan 25 mg tablet 25 mg PO DAILY 05/28/23 09/24/23 bupropion HCl 150 mg 24 hr tablet, 150 mg PO DAILY 08/04/23 09/24/23 extended release Standard hand held cane 08/13/23 09/24/23 Previous Rx's ?Medication ?Instructions ?Recorded omega-3 acid ethyl esters 1 gram 1 cap PO BID #180 caps 05/17/23 capsule aspirin 81 mg tablet,delayed 81 mg PO DAILY 90 days #90 tabs 06/20/23 release azelaic acid 15 % topical foam 1 appl topical BID 90 days #50 06/20/23 (Finacea) grams cholecalciferol (vitamin D3) 50 50 mcg PO DAILY 90 days #90 caps 06/20/23 mcg (2,000 unit) capsule metformin 500 mg tablet,extended 500 mg PO DAILY #90 tabs 07/01/23 release 24 hr cane #1 ea 09/17/23 meloxicam 15 mg tablet 15 mg PO DAILY 30 days #30 tabs 09/24/23 blood-glucose sensor (FreeStyle #6 ea 10/01/23 Lynne 3 Sensor device) albuterol sulfate 90 mcg/actuation 2 puff inhalation Q6H PRN 10/17/23 aerosol inhaler shortness of breath or wheezing 30 days #8.5 grams dulaglutide 1.5 mg/0.5 mL 1.5 mg (0.5 mL) subcut QWEEK #6 mL 10/22/23 subcutaneous pen injector (Trulicity) alpha lipoic acid 600 mg capsule 600 mg PO Q24H #90 caps 11/20/23 gabapentin 300 mg capsule 300 mg PO TID #90 caps 12/02/23 Allergies Allergy/AdvReac Type Severity Reaction Status Date / Time doxycycline Allergy Itching Verified 12/15/23 16:37 Review of Systems Constitutional: Constitutional: Denies body ache(s), Denies chills, Denies fever(s) and Denies headache(s) ENT: Denies headache(s) Cardiovascular: Cardiovascular: Denies chest pain and Denies dyspnea Respiratory: Respiratory: Denies cough and Denies dyspnea Gastrointestinal: Gastrointestinal: Reports abdominal pain, Reports nausea and Denies vomiting Genitourinary: Genitourinary: Denies genital pain, Denies dysuria, Denies flank pain, Denies scrotal swelling, Denies testicular pain and Reports urinary incontinence Musculoskeletal: Musculoskeletal: Denies back pain Integumentary/Breasts: Skin/Breast: Denies rash Neurologic: Denies headache(s) [facility] Past Medical History Medical History Encephalomalacia with cerebral infarction Stroke Gout Diverticulitis Fatty liver Splenomegaly Hypertriglyceridemia ANAYA on CPAP Mild asthma Ophthalmic migraine Heel spur ADHD Bipolar disorder Anxiety Type 2 diabetes mellitus with diabetic polyneuropathy, with long-term current use of insulin Essential hypertension Hyperlipidemia LDL goal <100 Vitamin D deficiency Obesity due to excess calories BMI 37.0-37.9, adult Type 2 diabetes mellitus with hyperglycemia Surgical History History of foot surgery History of hernia repair History of colectomy Family History Family History Father Diabetes mellitus Mental health disorder Mother HTN (hypertension) Maternal Uncle Diabetes mellitus Substance use disorder Mental health disorder Paternal Grandmother Diabetes mellitus Social History Social History Household Members: Children Housing: House Patient Tobacco Use Status: Current everyday Tobacco user Tobacco use type: Cigarette Cigarettes Per Day: 8 Years Smoked: 25 e-Cigarette/Vaping Use: Currently Using Second Hand Smoke Exposure: No Substance Use Type: Marijuana Advance Directives: No Advance Directives Information Provided: No service: No Current occupational status: disabled Cognitive needs: No Hearing needs: No Vision needs: No Physical Exam ED Vital Signs: Vital Signs - 24 hr 12/15/23 16:34 12/15/23 19:35 Temperature 97.4 F 97.7 F Pulse Rate 68 64 Respiratory Rate 20 18 Blood Pressure 151/93 H 153/88 H Pulse Oximetry 96 96 Oxygen Delivery Method Room Air Room Air BMI result Body Mass Index 38.5 Const General: healthy appearing, comfortable, no acute distress, alert and awake Nutritional Appearance: well nourished Orientation/consciousness: patient oriented x3 HENMT Head: Yes normocephalic and Yes atraumatic Eyes Eyelids: Yes eyelids normal Conjunctivae: conjunctivae normal Sclerae: sclerae normal Corneas: corneas normal Pupils: Equal, round and reactive pupils present EOM: EOMs intact bilaterally Neck Neck: Yes full ROM Resp Effort & Inspection: normal respiratory effort, able to speak in complete sentences and not labored GI Inspection: No distended Palpation (GI): Soft to palpation, not firm, nontender, no guarding and not rigid Skin General skin exam: elasticity normal Neuro General: patient oriented x3 Cranial nerves: Yes Equal, round and reactive pupils present and Yes Bilaterally intact EOM present Cognition (Neuro): normal cognition Extrem Other: Moving all extremities well without any obvious deformities Course Course Course Narrative: This is an RME done by CRISTIANO Nunez: Additional HPI, ROS, PE not included below will be deferred to primary provider. 48 year old male presents w/ urinary retention from UC advised to come in and be seen today, also a/c abd pain. No fevers, chills. Appearance: Alert.? Oriented X3.? No acute cardiopulmonary distress distress.? Head: Normocephalic, atraumatic, no step-offs or deformities CVS: Pulses normal.? Respiratory: No respiratory distress.? Abdomen: Soft and nontender.? Skin: ? Normal skin color. Extremities: 5/5 strength to bilateral upper and lower extremities Neuro: Oriented X 3.? No motor deficit.? No sensory deficit. Medical Decision Making Medical Decision Making [facility] Narrative: 48-year-old male past medical history as documented above presents for evaluation of abdominal pain with nausea. He did have an episode of incontinence last night, he has no back pain to suggest cauda equina syndrome. He has no evidence of UTI. CT scan shows no acute pathology. No evidence of obstructive uropathy. Patient continues to complain of nausea but there is no obstruction. He declines antiemetics at this time. His symptoms may be related to a recently passed stone, an inguinal hernia that has reduced, or viral etiology. Differential Diagnosis Differential Diagnoses: The differential diagnosis associated with the presentation includes Abdominal pain Inguinal hernia Obstructive uropathy UTI Pyelonephritis Lab Data [facility] Lab Attestation statement: I reviewed the patient's lab results. No leukocytosis or anemia. Normal platelet count. No significant electrolyte abnormalities. The patient's carbon dioxide level is slightly elevated to 30 which may be related to the patient's obesity and sleep apnea. Urinalysis without evidence of infection 12/15/23 16:50 12/15/23 16:50 Labs: Lab Results 12/15/23 Range/Units 16:50 WBC 9.7 (4.8-10.8) X10*3/uL RBC 5.36 (4.60-5.80) X10*6/uL Hgb 15.8 (14.0-18.0) g/dl Hct 44.8 (42.0-52.0) % MCV 83.6 (80.0-98.0) fL MCH 29.5 (27.0-33.0) pg MCHC 35.3 (31.0-36.0) g/dl RDW 13.0 (11.0-16.0) % Plt Count 190 (160-400) X10*3/uL MPV 10.1 (9.4-12.4) fL Immature Gran % (Auto) 0.5 H (0.0-0.4) % Neut % (Auto) 65.5 (45-73) % Lymph % (Auto) 24.2 (20-40) % [place] % (Auto) 7.8 (2-11) % Eos % (Auto) 1.6 (0-4) % Baso % (Auto) 0.4 (0-2) % Lymph # (Auto) 2.3 (1.2-4.9) X10*3/uL [place] # (Auto) 0.8 (0.1-1.2) X10*3/uL Eos # (Auto) 0.2 (0.0-0.4) X10*3/uL Baso # (Auto) 0.0 (0.0-0.2) X10*3/uL Abs Immat Gran (auto) 0.05 H (0.00-0.03) X10*3/uL Absolute Neuts (auto) 6.3 (2.0-8.3) x10*3/uL Absolute Nucleated RBC 0.000 (0.0-0.012) X10*3/uL Nucleated RBC % (auto) 0.0 (0.0-0.2) /100WBC Sodium 139 (135-145) mmol/L Potassium 4.2 (3.3-5.1) mmol/L Chloride 105 (96-108) mmol/L Carbon Dioxide 30 H (22-29) mmol/L Anion Gap 8 L (12-20) BUN 14 (9-16) mg/dL Creatinine 0.95 (0.5-1.4) mg/dL Estim Creat Clear Calc 141.0 Estimated GFR > 60 Random Glucose 76 (60-115) mg/dL Calcium 10.1 D (8.4-10.2) mg/dL Total Bilirubin 0.5 (0.0-1.0) mg/dL AST 19 (5-37) U/L ALT 27 (0-40) U/L Alkaline Phosphatase 79 (39-117) U/L Total Protein 7.1 (6.5-8.0) g/dL Albumin 4.3 (3.5-5.0) g/dL Lipase 57 (8-78) U/L Urine Color Yellow Urine Appearance Clear Urine pH 7.0 (5.0-9.0) Ur Specific [place] 1.015 (1.005-1.025) Urine Protein Negative (Neg-Trace) mg/dL Urine Glucose (UA) Negative (Negative) mg/dL Urine Ketones Negative (Negative) mg/dL Urine Blood Negative (Negative) Urine Nitrite Negative (Negative) Ur Leukocyte Esterase Negative (Negative) Radiology Impression Discussion of test interpretation with radiology: I have reviewed the radiologist's reading. Radiologist Impression: CT/CT abdomen pelvis wo IV con IMPRESSION: 1. An etiology for the patient's urinary tract issues has not been found. 2. Evidence of prior granulomatous disease with pulmonary granulomas. 3. Mild splenomegaly. 4. Sigmoid anastomosis without obstruction. 5. Colonic diverticulosis without diverticulitis. 6. Small left inguinal hernia containing only fat. 7. Degenerative changes L5-S1 with grade 1 anterolisthesis and bilateral pars defects. Discharge Plan Discharge Clinical Impression: Abdominal pain, Nausea Patient Disposition: Home, Self-Care Instructions: Acute Abdominal Pain (ED) Additional Instructions: Your workup in the ER today was reassuring. This includes your blood work, your urinalysis did not show any signs of infection. Your CT scan did not show any concerning abnormalities. It is possible that you passed a kidney stone earlier today Follow-up with your primary doctor, return for new or worsening symptoms Prescriptions: No Action omega-3 acid ethyl esters 1 gram capsule 1 cap PO BID Qty: 180 1RF aspirin 81 mg tablet,delayed release (DR/EC) 81 mg PO DAILY 90 Days Qty: 90 1RF cholecalciferol (vitamin D3) 50 mcg (2,000 unit) capsule 50 mcg PO DAILY 90 Days Qty: 90 1RF Finacea 15 % foam 1 appl topical BID 90 Days Qty: 50 2RF metformin 500 mg tablet extended release 24 hr 500 mg PO DAILY Qty: 90 1RF (DME) Standard hand held cane See Rx Instructions .Route .MEDSUPPLY Rx Instructions: to use when ambulating (DME) cane Device See Rx Instructions .Route Qty: 1 0RF Rx Instructions: straight, single legged cane (DME) FreeStyle Lynne 3 Sensor Device See Rx Instructions .Route Qty: 6 1RF Rx Instructions: As directed to monitor blood sugars albuterol sulfate 90 mcg/actuation HFA aerosol inhaler 2 puff inhalation Q6H PRN (Reason: shortness of breath or wheezing) 30 Days Qty: 8.5 2RF Trulicity 1.5 mg/0.5 mL pen injector 1.5 mg subcut QWEEK Qty: 6 1RF alpha lipoic acid 600 mg capsule 600 mg PO Q24H Qty: 90 1RF gabapentin 300 mg capsule 300 mg PO TID Qty: 90 0RF oxcarbazepine 300 mg tablet 300 mg PO BID clonazepam 0.5 mg tablet PO losartan 25 mg tablet 25 mg PO DAILY meloxicam 15 mg tablet 15 mg PO DAILY 30 Days Qty: 30 2RF bupropion HCl 150 mg tablet extended release 24 hr 150 mg PO DAILY Print Language: [place] Citizen
[2023-12-15 17:01] LABS: MANUAL DIFF FLAG NO
[2023-12-15 17:02] LABS: Basophils Percent Auto 0.4 % (0-2); Eosinophils Absolute Auto 0.2 X10*3/uL (0.0-0.4); Eosinophils Percent Auto 1.6 % (0-4); Hematocrit 44.8 % (42.0-52.0); Hemoglobin 15.8 g/dl (14.0-18.0); Imm Gran Abs Auto 0.05 X10*3/uL (0.00-0.03); Imm Gran Pct Auto 0.5 % (0.0-0.4); Lymphocytes Absolute Auto 2.3 X10*3/uL (1.2-4.9); Lymphocytes Percent Auto 24.2 % (20-40); Mean Corpuscular HGB Conc 35.3 g/dl (31.0-36.0); Mean Corpuscular Hemoglobin 29.5 pg (27.0-33.0); Mean Corpuscular Volume 83.6 fL (80.0-98.0); Mean Platelet Volume 10.1 fL (9.4-12.4); Monocytes Absolute Auto 0.8 X10*3/uL (0.1-1.2); Monocytes Percent Auto 7.8 % (2-11); Neutrophils Absolute Auto 6.3 x10*3/uL (2.0-8.3); Neutrophils Percent Auto 65.5 % (45-73); Platelet Count 190 X10*3/uL (160-400); Red Blood Count 5.36 X10*6/uL (4.60-5.80); White Blood Count 9.7 X10*3/uL (4.8-10.8)
[2023-12-15 17:05] LABS: Appearance Urine Clear; Color Urine Yellow; Glucose Urine UA Negative (Negative); Leukocyte Esterase Urine Negative (Negative); Nitrite Urine Negative (Negative); Specific Gravity - Urine 1.015 (1.005-1.025); Urine Blood Negative (Negative); Urine Ketones Negative (Negative); Urine Protein Negative (Neg-Trace)
[2023-12-15 17:18] LABS: Alanine Aminotransferase 27 U/L (0-40); Albumin Level 4.3 g/dL (3.5-5.0); Alkaline Phosphatase 79 U/L (39-117); Anion Gap 8 (12-20); Aspartate Amino Transferase 19 U/L (5-37); Bilirubin Total 0.5 mg/dL (0.0-1.0); Blood Urea Nitrogen 14 mg/dL (9-16); Calcium 10.1 mg/dL (8.4-10.2); Carbon Dioxide 30 mmol/L (22-29); Chloride 105 mmol/L (96-108); Estimated Glomerular Filt Rate > 60; Glucose Random 76 mg/dL (60-115); Lipase 57 U/L (8-78); Potassium 4.2 mmol/L (3.3-5.1); Sodium 139 mmol/L (135-145); Total Protein 7.1 g/dL (6.5-8.0)
[2023-12-15 19:35] VITALS: BP 153/88; PULSE 64; RESP 18; TEMP 36.5; O2SAT 96
[2023-12-15 19:57] VITALS: BP 153/88; PULSE 64; RESP 18; TEMP 36.5; O2SAT 96
== END 2023-12-15 19:57 | disposition home or self-care (01) ==
PROVIDERS: Physician Assistant; Emergency Provider Internal Medicine; PCP Nurse Practitioner Family
DX: R10.9 Unspecified abdominal pain (principal); R11.0 Nausea; R32 Unspecified urinary incontinence; I10 Essential (primary) hypertension; E11.9 Type 2 diabetes mellitus without complications; R16.1 Splenomegaly, not elsewhere classified; Z79.899 Other long term (current) drug therapy
CPT/HCPCS: 36415; 74176; 80053; 81003; 83690; 85025; 99283; 99284

== ENCOUNTER 2023-12-20 09:48 | Outpatient (AMB) | payer OTHER, SELFPAY ==
--- NOTE | 2023-12-20 10:05 | A.OFFVIS_ITS ---
Vital Signs 12/20/23 10:06 Height 6 ft 2 in Weight 289 lb BMI 37.1 Intake Visit Reasons: INP-Dizziness and giddiness. Intake Note: Patient presents for dizziness and giddiness. patient always has felt off balance dizziness started about 2 years and gotten worst some days worst than others. Allergies doxycycline Allergy (Verified 12/20/23 10:12) Itching HPI Comments Details: Ambidextrous (Right handed for writing, left handing for throwing) 48-yr-old male presents for new pt evaluation of dizziness and balance difficulties. PMH includes: PFO/ASD - two cribriform defects in the atrial septum in addition to PFO.? 35mm crbriform occluder in PFO, 18mm PFO occluder in small defect. CVA - chronic R MCA infarction.? unclear when this occurred.? RoPE 5. Laird's palsy x's 2. HTN, DM2, ANAYA on PAP tx. bilateral skwed foot deformity,foot pain, diverticulosis. He states he has always been off-balance his entire life. But then the dizziness started ~ 2 yrs ago, which started sometime after he had his 2nd bout of Laird's Palsy (unsure which side). This was 1 yr prior to the PFO closure. The dizziness can feel like head spinning. He can have a sensation like his foot has just slipped out and his body will jerk from under him- similar to what one might feel when one falls asleep, but this can occur when awake and sitting. Either can be triggered by turning his head but also not triggered by anything. Since the Laird's palsy- his eyes will water when he is chewing/salivating. He has seen his eye doctor and was referred to specialist. Has had some tx, offered Botox but told more risk than benefit. He is prone falling in any direction. He has to hold onto the wall or something to keep his balance. He is not sure if he is weak. Can quickly get himself up from the ground. He also notes he has bilateral skewed feets. He has chronic foot pain. He was given a cane recently after he [place] the river. In his 20s, he was limping in his 20s d/t the foot pain. He does deep tissue massage for chronic neck and back tightness. He can have shooting neck pain- possibly radiates up from cranio-occipital space. He also BLE neuropathy- hot fire, numbness, or coldness, bilateral mid-foot through toes, which is constant but intensity fluctuates with time of day and med dosing. Feels like he feels the ground when walking He has numbness/tinging in fingers. He has normal headaches at times. He can tremor- not sure exactly when- mostly in hands. He is prone to leg cramps during the day or night. Some occasional ear ringing. No urinary or bowel changes. He is taking 3-4 16 oz bottles of water a day. He is on Trileptal for mood, Meloxicam 15mg, Gabapentin 300mg qam and 600mg qhs, (rarely an extra 300mg q midday), alpha lipoic acid 600mg qd- for the neuropathy. He had vestibular eval- work-up was negative for BPPV. ENT consult did not feel that this dizziness was r/t ENT. Cardiology does not feel this is r/t his heart. His diabtes is well controlled- 5.7%. Initially dx'd w/ DM 20 yrs ago- has not always been well-controlled. He is f/b a therapist and psychiatrist. His father has similar s/s- also has vertigo, diabetes, tremor. He also falls. His son has has similar foot issues Amplatzer PFO occluder- mri conditional to 3 T MRI, [id number], implanted 03/31/2022. [facility] Medical History (Updated 12/20/23 @ 17:22 by CONSTANTIN Sidhu) Joint pain Pulmonary granuloma Encephalomalacia with cerebral infarction Stroke Gout Diverticulitis Fatty liver Splenomegaly Hypertriglyceridemia ANAYA on CPAP Mild asthma Ophthalmic migraine Heel spur ADHD Bipolar disorder Anxiety Type 2 diabetes mellitus with diabetic polyneuropathy, with long-term current use of insulin Essential hypertension Hyperlipidemia LDL goal <100 Vitamin D deficiency Obesity due to excess calories BMI 37.0-37.9, adult Type 2 diabetes mellitus with hyperglycemia Surgical History History of foot surgery History of hernia repair History of colectomy Family History Father Diabetes mellitus Mental health disorder Mother HTN (hypertension) Maternal Uncle Diabetes mellitus Substance use disorder Mental health disorder Paternal Grandmother Diabetes mellitus Social History Household Members: Children Housing: House Patient Tobacco Use Status: Current everyday Tobacco user Tobacco use type: Cigarette Cigarettes Per Day: 8 Years Smoked: 25 e-Cigarette/Vaping Use: Currently Using Second Hand Smoke Exposure: No Substance Use Type: Marijuana service: No Current occupational status: disabled Cognitive needs: No Hearing needs: No Vision needs: No Physical Exam Vital Signs: BMI result Body Mass Index 37.1 Const Orientation/consciousness: patient oriented x3 Eyes Pupils: Equal, round and reactive pupils present Resp Effort & Inspection: normal respiratory effort and able to speak in complete sentences Neuro Other: Mild left facial asymmetry- weakness. Eye brow strength symmetric. No palpable scalp tenderness. Bilateral mild posterior cervical tightness. Cervical ROM: full Left Spurling: normal Right Spurling: normal. LUE mild kinetic tremor- when removing socks. BLE decreased light touch, vibration sensation. RLE intact position sensation. LLE slightly decreased position sensation. BLE flat feet. Bilateral FFM- intact Bilateral finger-nose intact, though right smoother than left. BUE KERI- intact. BLE foot taps- decreased, more so on right- pt attributes to foot/ankle pain. BLE ankle/foot deformity- valgus, flat feet. Gait- slow to stand, decreased right arm swing, narrow heel base, miky forefoot externally rotated, mild right high step, unsteady during turns- uses wall to balance. Poor Romberg. Tandem- not attempted. BUE MS 5/5 BLE hip flexors- DISTRICT CAPTAIN 5/5. General: patient oriented x3 Cranial nerves: Yes Equal, round and reactive pupils present, Yes Normal accommodation reflex present, Yes Bilaterally intact EOM present, Yes Nystagmus not present, Yes Midline tongue present, Yes Symmetric palate elevation present, Yes Ability to bilaterally rotate head present and Yes Ability to bilaterally elevate shoulders present Cognition (Neuro): normal cognition Deep tendon reflexes (DTR's): Right triceps reflex intensity grade: 2+, Left triceps reflex intensity grade: 2+, Rt Biceps (C5, C6): 2+, Left biceps reflex intensity grade: 2+, Right brachioradialis reflex intensity grade: 2+, Left brachioradialis reflex intensity grade: 2+, Right patellar reflex intensity grade: 1+ and Left patellar reflex intensity grade: 1+ Pupils: Normal pupillary reactivity/response: bilateral Psych Appearance: grossly normal Mental Status: mental status grossly normal Speech and movement: Normal speech and movement present Affect: normal affect Attitude: cooperative Thought process: Normal thought process present Results Reviewed Results Reviewed: 03/23/21, Brain MRI w/o at [facility]: 1. No acute or subacute infarct. 2. Chronic right temporal and posterior right insular infarcts. 3. A few new punctate T2 bright foci are present within the supratentorial white matter. These are nonspecific, but may represent sequela of an inflammatory process, such as Lyme disease, or early chronic microangiopathic/small vessel ischemic change. Small T2 bright white matter lesions have also been reported in patients with migraine headache. 03/21/21, CT Angio Head Hyperacute Stroke, CT Angio Neck Hyperacute Stroke, at [facility] IMPRESSION: There is a moderate chronic infarct in the right frontotemporal lobes. No cutoff or high-grade stenosis of the major branches of the intracranial arteries. No aneurysm, stenosis, or vascular malformations present. Bilateral internal carotid arteries show no significant stenosis by NASCET criteria. Bilateral cervical vertebral arteries are normal. Assessment & Plan Assessment & Plan (1) Balance problem: Code(s): R26.89 - Other abnormalities of gait and mobility Category: Medical (2) Ataxic gait: Code(s): R26.0 - Ataxic gait Category: Medical (3) Decreased proprioception of joint of left foot: Code(s): M25.872 - Other specified joint disorders, left ankle and foot Category: Medical (4) Ataxic gait: Code(s): R26.0 - Ataxic gait Category: Medical (5) Decreased proprioception of joint of left foot: Code(s): M25.872 - Other specified joint disorders, left ankle and foot Category: Medical (6) Tremor: Code(s): R25.1 - Tremor, unspecified Category: Medical Plan To further evaluate dizziness, ataxic gait, balance difficulties, tremor, impaired left foot propriocetion, positive Romberg, pt is advised to undergo: Labs for common etiologies. BLE EMG/NCS Brain and C-spine MRI w/wo to assess for secondary etiologies, including cerebellar and posterior column process. F/u consult w/ pt's previous orthopedic clinic, [facility]. Future considerations- PT, genetics evaluation. Pt seen in c/w Dr Maci Fritz. Will follow-up upon review of above and patient to follow-up in clinic in 3-4 months or sooner prn. Orders: Orders Erythrocyte Sedimentation Rate 12/20/23 R26.89 - Other abnormalities of gait and mobility, E55.9 - Vitamin D deficiency, unspecified, E11.49 - Type 2 diabetes mellitus with other diabetic neurological complication, I10 - Essential (primary) hypertension, M25.50 - Pain in unspecified joint Vitamin D 25-OH (D2 and D3) 12/20/23 R26.89 - Other abnormalities of gait and mobility, E55.9 - Vitamin D deficiency, unspecified, E11.49 - Type 2 diabetes mellitus with other diabetic neurological complication, I10 - Essential (primary) hypertension, M25.50 - Pain in unspecified joint Homocysteine 12/20/23 R26.89 - Other abnormalities of gait and mobility, E55.9 - Vitamin D deficiency, unspecified, E11.49 - Type 2 diabetes mellitus with other diabetic neurological complication, I10 - Essential (primary) hypertension, M25.50 - Pain in unspecified joint Methylmalonic Acid 12/20/23 R26.89 - Other abnormalities of gait and mobility, E55.9 - Vitamin D deficiency, unspecified, E11.49 - Type 2 diabetes mellitus with other diabetic neurological complication, I10 - Essential (primary) hypertension, M25.50 - Pain in unspecified joint ALEJANDRA Reflex Titer and Pattern 12/20/23 R26.89 - Other abnormalities of gait and mobility, E55.9 - Vitamin D deficiency, unspecified, E11.49 - Type 2 diabetes mellitus with other diabetic neurological complication, I10 - Essential (primary) hypertension, M25.50 - Pain in unspecified joint NE electromyogram (EMG) 12/20/23 R26.89 - Other abnormalities of gait and mobility, E11.49 - Type 2 diabetes mellitus with other diabetic neurological complication, M21.6X1 - Other acquired deformities of right foot, M21.6X2 - Other acquired deformities of left foot CRP High Sensitivity 12/20/23 R26.89 - Other abnormalities of gait and mobility, E55.9 - Vitamin D deficiency, unspecified, E11.49 - Type 2 diabetes mellitus with other diabetic neurological complication, I10 - Essential (primary) hypertension, M25.50 - Pain in unspecified joint Vitamin B12 and Folate 12/20/23 R26.89 - Other abnormalities of gait and mobility, E55.9 - Vitamin D deficiency, unspecified, E11.49 - Type 2 diabetes mellitus with other diabetic neurological complication, I10 - Essential (primary) hypertension, M25.50 - Pain in unspecified joint NE nerve conduction velocity 12/20/23 R26.89 - Other abnormalities of gait and mobility, E11.49 - Type 2 diabetes mellitus with other diabetic neurological complication, M21.6X2 - Other acquired deformities of left foot, M21.6X1 - Other acquired deformities of right foot MR cervical spine wo/w con 12/20/23 R26.89 - Other abnormalities of gait and mobility, R26.0 - Ataxic gait, M25.872 - Other specified joint disorders, left ankle and foot, E11.49 - Type 2 diabetes mellitus with other diabetic neurological complication MR head/brain wo/w con 12/20/23 R26.0 - Ataxic gait, M25.872 - Other specified joint disorders, left ankle and foot, R25.1 - Tremor, unspecified, R42 - Dizziness and giddiness Ceruloplasmin 12/20/23 R25.1 - Tremor, unspecified Referrals Orthopedics Referral M21.6X1 - Other acquired deformities of right foot, M21.6X2 - Other acquired deformities of left foot, R26.0 - Ataxic gait, M25.872 - Other specified joint disorders, left ankle and foot Coding Level of Care Code New Pt Level 4 (75469) Diagnoses Balance problem R26.89 Ataxic gait R26.0 Decreased proprioception of joint of left foot M25.872 Tremor R25.1
[2023-12-20 10:06] VITALS: BMI 37.1
== END 2023-12-20 11:47 | disposition home or self-care (01) ==
PROVIDERS: PCP Nurse Practitioner Family; Visit Provider Nurse Practitioner Family
DX: R26.89 Other abnormalities of gait and mobility (principal); R26.0 Ataxic gait; M25.872 Other specified joint disorders, left ankle and foot; R25.1 Tremor, unspecified
CPT/HCPCS: 99204

== ENCOUNTER → 2023-12-20 09:48 | Outpatient (BNVA) | payer OTHER, SELFPAY | PROVIDERS: PCP Nurse Practitioner Family; Visit Provider Nurse Practitioner Family | DX: R26.0 Ataxic gait (principal); R26.89 Other abnormalities of gait and mobility; M25.872 Other specified joint disorders, left ankle and foot; R25.1 Tremor, unspecified; E55.9 Vitamin D deficiency, unspecified; E11.49 Type 2 diabetes mellitus with other diabetic neurological complication; I10 Essential (primary) hypertension; M25.50 Pain in unspecified joint; M21.6X2 Other acquired deformities of left foot; M21.6X1 Other acquired deformities of right foot | CPT/HCPCS: 99202 ==

== ENCOUNTER 2024-01-03 11:57 | Outpatient (REF) | payer OTHER, SELFPAY ==
[2024-01-03 14:10] LABS: Erythrocyte Sedimentation Rate 6 MM/HR (0-15)
[2024-01-03 15:19] LABS: Folate 5.5 ng/mL (> or = 4.0); Vitamin B12 411 pg/mL (200-900)
[2024-01-04 15:38] LABS: CRP High Sensitivity 6.1 mg/L; Ceruloplasmin 27 mg/dL (14-30)
[2024-01-04 18:58] LABS: Homocysteine 13.6 umol/L (<11.4)
[2024-01-05 12:28] LABS: Anti Nuclear Antibody Screen NEGATIVE (NEGATIVE)
[2024-01-05 20:19] LABS: Methylmalonic Acid 87 nmol/L (55-335)
[2024-01-07 14:33] LABS: Vitamin D 25-OH, D2 <4 ng/mL; Vitamin D 25-OH, D3 28 ng/mL; Vitamin D 25-OH, Total 28 ng/mL (30-100)
== END 2024-01-03 11:58 | disposition home or self-care (01) ==
LOC: HO.LAB 11:57
PROVIDERS: PCP Nurse Practitioner Family; Visit Provider Nurse Practitioner Family
DX: M25.50 Pain in unspecified joint (principal); I10 Essential (primary) hypertension; E11.49 Type 2 diabetes mellitus with other diabetic neurological complication; E55.9 Vitamin D deficiency, unspecified; R26.89 Other abnormalities of gait and mobility
CPT/HCPCS: 36415; 82306; 82390; 82607; 82746; 83090; 83921; 85652; 86038; 86141

== ENCOUNTER 2024-02-08 09:21 | Outpatient (REF) | payer OTHER, SELFPAY ==
--- NOTE | 2024-02-08 09:24 | EMG_ITS ---
Bilateral tibial and peroneal motor studies were performed. Bilateral superficial peroneal and sural sensory studies were performed. Tibial H reflexes were obtained, and paraspinal muscles were tested with a needle. 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 MD ARSENIO Mejia/ELKE / [id number]
== END 2024-02-08 09:22 | disposition home or self-care (01) ==
LOC: HO.NEURO 09:21
PROVIDERS: PCP Nurse Practitioner Family; Visit Provider Nurse Practitioner Family
DX: R26.89 Other abnormalities of gait and mobility (principal); E11.49 Type 2 diabetes mellitus with other diabetic neurological complication; M21.6X1 Other acquired deformities of right foot; M21.6X2 Other acquired deformities of left foot
CPT/HCPCS: 95886; 95913

== ENCOUNTER 2024-03-21 10:00 | Outpatient (RCR) | payer OTHER, SELFPAY ==
--- NOTE | 2024-02-24 12:45 | MHC.PT.EP ---
[facility] [place] Office [place] Office [place] Office [address] Marco A Hickman [address] [phone] F: [phone] F: [phone] F: [phone] F: [phone] Physical Therapy Plan of Care Date of Evaluation: 02/24/24 Date of Surgery: Diagnosis: This is 48 yo male presenting to skilled PT with a script for other abnormalities of gait and mobility. Assessment: This is 48 yo male presenting to skilled PT with a script for other abnormalities of gait and mobility. He reports that he has always had some sort of decreased balance however it has been getting worse (he was told when he was a child that he had bad balance, he was recommended he use a cane, was given various AFOs; he reports that he was never diagnosed with anything and is unsure why he was told and provided these AD's). He has had dizziness for the last 2 years when he had bells palsy twice, a stroke, cardiac surgery for holes in my heart . He reports falls, dizziness when awake and sleeping (this comes and goes, no certain movements or positions cause this). He has seen his postie and they reported his heart was not causing his dizziness. He has also seen an ENT who also reported this is not related to their dept either. He saw us last year for a vertigo assessment and he was negative for BPPV. He reports seeing a web methods developer in the past due to neuropathy, toenails but has never been referred to an orthotics personnel for orthotic. He also endorses muscle and joints pain throughout his body (I focused on just his lower half due to time and script). He has pain in his R foot (plantar and heel, achy and sharp, numbness and tingling), he has tightness in his gastrocs on the R, he reports almost like a dislocation in his hip, low back pain and then similar symptoms of pain on the L LE (but less intense). Patient gets massage therapy once a week or every other week, uses a cane for ambulation at times, takes Motrin, ice, lidocaine and icy hot for pain relief. He has not seen an ortho/back specialist yet. He has had a nuero assessment and nerve conduction test without results yet. Assessment reveals pain that ranges from up to a 9/10 at the worst. Patient demos decreased lumbar and BLE ROM, strength of core, back and LE's, impaired balance as evidenced by DGI and notes random dizziness and decreased posture with excessive ER, collapsed arch vs supination on opp LE, forward head and rounded shoulders. Based on functional limitations, impaired QOL and pain tolerance patient is a fair candidate for skilled PT 2x/wk for 4wks. I will assess him once again for vertigo and create a plan of care for balance HEP. Frequency and Duration: The patient will be seen 2x/wk for 4wks Short Term Goals: Pt will demonstrate improved postural awareness and understanding of core engagement with supine and standing tasks without cues throughout session to improve balance safety as well as improve strength in 2 weeks. Pt will continue to reinforce precautions, sitting, standing and ADL modifications with proper body mechanics and prevent falls in 2 wks. Pt will be assess for vertigo once again next session. Architectural Examiner Goals: Pt will demonstrate improved outcome measure by 5 points in 4 weeks for improved functional mobility. Pt will demonstrate ability to bend and lift WNL min to no pain for household tasks in 4 wks. Pt will be I in HEP and compliant in 4wks Pt will follow up with PT recommendations to help with balance including but not limited in HEP, podiatry inserts, new and appropriate footwear, safe use of AD, appropriate referrals. Treatment Plan: Modalities to reduce pain, spasms and effusion. Manual therapy to restore motion and function. Therapeutic exercise to improve strength and flexibility. Neuromuscular re-education for posture and balance. Therapeutic activities to return to functional activities of daily living. Electronically signed by: Belkis Prince, PT Please sign and return to therapist. Thank you for your referral.
--- NOTE | 2024-04-20 08:03 | MHC.PT.DC ---
[facility] [place] Office [place] Office [place] Office [address] Marco A Hickman [address] [facility] [phone] F: [phone] F: [phone] F: [phone] F: [phone] Physical Therapy Discharge Report Diagnosis: This is 48 yo male presenting to skilled PT with a script for other abnormalities of gait and mobility. Date of Surgery: Date of Evaluation: 02/24/24 Date of Discharge: 04/20/24 Treatments to Date: 6 Cancellations to Date: 0 No Shows to Date: 0 Discharge Status: Independent with HEP Patient Elected to Stop Discharge Summary: 03/21: Patient has a good HEP to continue on his own and is awaiting orthotics for his feet as well. He will be undergoing partial hospitalization so we will be DCing for now. He continued to be negative for vertigo with no symptoms noted throughout his sessions here in the clinic. I think he will most likely benefit from his custom orthotics the most. DC to HEP. Electronically signed by: Belkis Prince PT Please sign and return to therapist. Thank you for your referral.
== END 2024-04-20 08:04 | disposition home or self-care (01) ==
LOC: HO.PTCHIC 10:00
PROVIDERS: PCP Nurse Practitioner Family; Visit Provider Nurse Practitioner Family
DX: R26.0 Ataxic gait (principal); R26.89 Other abnormalities of gait and mobility
CPT/HCPCS: 95992; 97110; 97112; 97162

== ENCOUNTER 2024-03-25 07:45 | Outpatient (REF) | payer OTHER, SELFPAY ==
[2024-03-25 08:24] LABS: MANUAL DIFF FLAG NO
[2024-03-25 08:30] LABS: Basophils Percent Auto 0.4 % (0-2); Eosinophils Absolute Auto 0.1 X10*3/uL (0.0-0.4); Eosinophils Percent Auto 1.3 % (0-4); Hematocrit 44.3 % (42.0-52.0); Hemoglobin 15.6 g/dl (14.0-18.0); Imm Gran Abs Auto 0.03 X10*3/uL (0.00-0.03); Imm Gran Pct Auto 0.6 % (0.0-0.4); Lymphocytes Absolute Auto 1.2 X10*3/uL (1.2-4.9); Lymphocytes Percent Auto 21.5 % (20-40); Mean Corpuscular HGB Conc 35.2 g/dl (31.0-36.0); Mean Corpuscular Hemoglobin 29.1 pg (27.0-33.0); Mean Corpuscular Volume 82.6 fL (80.0-98.0); Mean Platelet Volume 10.2 fL (9.4-12.4); Monocytes Absolute Auto 0.4 X10*3/uL (0.1-1.2); Monocytes Percent Auto 7.2 % (2-11); Neutrophils Absolute Auto 3.8 x10*3/uL (2.0-8.3); Platelet Count 159 X10*3/uL (160-400); Red Blood Count 5.36 X10*6/uL (4.60-5.80); Red Cell Distribution Width 12.6 % (11.0-16.0); White Blood Count 5.4 X10*3/uL (4.8-10.8)
[2024-03-25 08:37] LABS: Estimated Average Glucose 120 mg/dL; Hemoglobin A1c % 5.8 % (<6.0); Total Hemoglobin (HGBA1C) 3905.2876 umol/L
[2024-03-25 08:52] LABS: Cholesterol 98 mg/dL (<200); HDL Cholesterol 24 mg/dL (>40); Iron 96 mcg/dL (45-160); LDL Cholesterol Calculated 57 mg/dL (<100); Magnesium 1.7 mg/dL (1.6-2.6); Percent Iron Saturation 48 % (15-50); Phosphorus 3.5 mg/dL (2.7-4.5); Total Iron Binding Capacity 202 mcg/dL (228-428); Triglycerides 89 mg/dL (<150); Unsaturated Iron Binding 106 ug/dL
[2024-03-25 09:06] LABS: Free T4 (Free Thyroxine) 1.12 ng/dL (0.71-1.85); Thyroid Stimulating Hormone 1.49 uIU/mL (0.32-4.0); Vitamin D 25-OH Total 45.9 ng/mL (>30)
[2024-03-25 09:08] LABS: Erythrocyte Sedimentation Rate 6 MM/HR (0-15)
[2024-03-25 09:20] LABS: Folate 10.1 ng/mL (> or = 4.0); Vitamin B12 746 pg/mL (200-900)
[2024-03-27 20:07] LABS: Homocysteine 10.5 umol/L (<11.4)
[2024-03-28 13:13] LABS: Zinc 65 mcg/dL (60-130)
[2024-03-30 03:08] LABS: Methylmalonic Acid 80 nmol/L (55-335)
[2024-03-30 19:18] LABS: Testosterone, Total 391 ng/dL (250-1100)
[2024-03-31 16:53] LABS: Vitamin B1 6 nmol/L (8-30)
== END 2024-03-25 07:46 | disposition home or self-care (01) ==
LOC: HO.LAB 07:45
PROVIDERS: PCP Nurse Practitioner Family; Visit Provider Psychiatry & Neurology Psychiatry
DX: F39 Unspecified mood [affective] disorder (principal); F63.89 Other impulse disorders; Z13.1 Encounter for screening for diabetes mellitus
CPT/HCPCS: 36415; 80061; 82306; 82550; 82607; 82746; 83036; 83090; 83540; 83735; 83921; 84100; 84207; 84403; 84425; 84439; 84443; 84630; 85025; 85652; 86140

== ENCOUNTER → 2024-03-30 13:00 | Outpatient (BNV) | payer OTHER, SELFPAY | PROVIDERS: Visit Provider Psychiatry & Neurology Psychiatry | DX: F39 Unspecified mood [affective] disorder (principal); F63.89 Other impulse disorders; Z86.59 Personal history of other mental and behavioral disorders | CPT/HCPCS: 99213 ==

== ENCOUNTER → 2024-04-06 07:35 | Outpatient (REF) | payer OTHER, SELFPAY ==
--- NOTE | 2024-04-06 07:49 | ECG_ITS ---
Test Reason : r/o qt prolongation Blood Pressure : / mmHG Vent. Rate : 067 BPM Atrial Rate : 067 BPM P-R Int : 240 ms QRS Dur : 118 ms QT Int : 402 ms P-R-T Axes : 056 -50 013 degrees QTc Int : 424 ms Sinus rhythm with 1st degree A-V block Left axis deviation Non-specific intra-ventricular conduction delay Abnormal ECG No previous ECGs available Referred By: Demi Yo Electronically Signed By:CORBIN RAMÍREZ MD
[2024-04-06 07:59] LABS: MANUAL DIFF FLAG NO
[2024-04-06 08:07] LABS: Basophils Percent Auto 0.4 % (0-2); Eosinophils Absolute Auto 0.1 X10*3/uL (0.0-0.4); Eosinophils Percent Auto 1.8 % (0-4); Hematocrit 41.2 % (42.0-52.0); Hemoglobin 14.6 g/dl (14.0-18.0); Imm Gran Abs Auto 0.02 X10*3/uL (0.00-0.03); Imm Gran Pct Auto 0.4 % (0.0-0.4); Lymphocytes Absolute Auto 1.2 X10*3/uL (1.2-4.9); Lymphocytes Percent Auto 22.7 % (20-40); Mean Corpuscular HGB Conc 35.4 g/dl (31.0-36.0); Mean Corpuscular Hemoglobin 29.3 pg (27.0-33.0); Mean Corpuscular Volume 82.7 fL (80.0-98.0); Monocytes Absolute Auto 0.4 X10*3/uL (0.1-1.2); Monocytes Percent Auto 7.8 % (2-11); Neutrophils Absolute Auto 3.4 x10*3/uL (2.0-8.3); Neutrophils Percent Auto 66.9 % (45-73); Platelet Count 141 X10*3/uL (160-400); Red Blood Count 4.98 X10*6/uL (4.60-5.80); Red Cell Distribution Width 12.7 % (11.0-16.0); White Blood Count 5.1 X10*3/uL (4.8-10.8)
[2024-04-06 08:17] LABS: Appearance Urine Clear; Color Urine Yellow; Glucose Urine UA Negative (Negative); Leukocyte Esterase Urine Negative (Negative); Nitrite Urine Negative (Negative); Specific Gravity - Urine 1.015 (1.005-1.025); Urine Blood Negative (Negative); Urine Ketones Negative (Negative); Urine Protein Negative (Neg-Trace)
[2024-04-06 08:19] LABS: Estimated Average Glucose 117 mg/dL; Hemoglobin A1C 146.5167 umol/L; Hemoglobin A1c % 5.7 % (<6.0); Total Hemoglobin (HGBA1C) 3771.0363 umol/L
[2024-04-06 08:28] LABS: Lithium 0.16 mmol/L (0.60-1.20)
[2024-04-06 08:53] LABS: Alanine Aminotransferase 34 U/L (0-40); Alkaline Phosphatase 75 U/L (39-117); Anion Gap 11 (12-20); Aspartate Amino Transferase 24 U/L (5-37); Bilirubin Total 0.7 mg/dL (0.0-1.0); Blood Urea Nitrogen 10 mg/dL (9-16); Calcium 8.9 mg/dL (8.4-10.2); Carbon Dioxide 24 mmol/L (22-29); Chloride 106 mmol/L (96-108); Cholesterol 90 mg/dL (<200); Estimated Glomerular Filt Rate > 60; Glucose Fasting 156 mg/dL (60-99); HDL Cholesterol 22 mg/dL (>40); LDL Cholesterol Calculated 48 mg/dL (<100); Potassium 4.4 mmol/L (3.3-5.1); Sodium 137 mmol/L (135-145); Total Protein 6.8 g/dL (6.5-8.0); Triglycerides 100 mg/dL (<150)
[2024-04-06 09:08] LABS: TSH reflex Free T4 1.63 uIU/mL (0.32-4.0)
[2024-04-06 11:33] LABS: Creatinine Urine 105.04 mg/dL; Microalbum/Creatinine Ratio Ur 6.6 ug/mg cr (<30)
[2024-04-07 22:48] LABS: Lyme Abs Screen <0.90 index
[2024-04-07 23:03] LABS: EBV-VCA IgM Ab <36.00 U/mL
[2024-04-10 12:58] LABS: Prot Elec - Alpha1 0.3 g/dL (0.2-0.3); Prot Elec - Alpha2 0.7 g/dL (0.5-0.9); Prot Elec - Beta 1 0.3 g/dL (0.4-0.6); Prot Elec - Beta 2 0.4 g/dL (0.2-0.5); Prot Elec - Total Protein 6.6 g/dL (6.1-8.1)
== END ==
LOC: HO.CARD 07:35
PROVIDERS: Nurse Practitioner Family; PCP Nurse Practitioner Family; Visit Provider Psychiatry & Neurology Psychiatry
DX: G51.0 Bell's palsy (principal); G62.9 Polyneuropathy, unspecified; E11.49 Type 2 diabetes mellitus with other diabetic neurological complication; E11.42 Type 2 diabetes mellitus with diabetic polyneuropathy; Z79.4 Long term (current) use of insulin; F39 Unspecified mood [affective] disorder; Z79.899 Other long term (current) drug therapy
CPT/HCPCS: 36415; 80053; 80061; 80178; 81003; 82043; 82570; 83036; 84165; 84443; 85025; 86617; 86618; 86664; 86665; 93005

== ENCOUNTER → 2024-04-06 07:49 | Outpatient (BNV) | payer OTHER, SELFPAY | PROVIDERS: PCP Nurse Practitioner Family; Visit Provider Internal Medicine Cardiovascular Disease | DX: I44.0 Atrioventricular block, first degree (principal) | CPT/HCPCS: 93010 ==

== ENCOUNTER 2024-04-12 12:18 | Outpatient (REF) | payer OTHER, SELFPAY ==
[2024-04-12 14:07] LABS: Anion Gap 10 (12-20); Blood Urea Nitrogen 12 mg/dL (9-16); C Reactive Protein 0.35 mg/dL (< or = 0.50); Calcium 9.8 mg/dL (8.4-10.2); Carbon Dioxide 28 mmol/L (22-29); Chloride 97 mmol/L (96-108); Estimated Glomerular Filt Rate > 60; Glucose Random 114 mg/dL (60-115); Sodium 130 mmol/L (135-145)
== END 2024-04-12 12:19 | disposition home or self-care (01) ==
LOC: HO.LAB 12:18
PROVIDERS: PCP Nurse Practitioner Family; Visit Provider Psychiatry & Neurology Psychiatry
DX: F39 Unspecified mood [affective] disorder (principal); F90.9 Attention-deficit hyperactivity disorder, unspecified type
CPT/HCPCS: 36415; 80048; 80178; 82550; 86140

== ENCOUNTER 2024-04-13 14:01 | Outpatient (REF) | payer OTHER, SELFPAY ==
[2024-04-13 15:08] LABS: Anion Gap 13 (12-20); Blood Urea Nitrogen 12 mg/dL (9-16); Calcium 9.7 mg/dL (8.4-10.2); Carbon Dioxide 25 mmol/L (22-29); Chloride 100 mmol/L (96-108); Estimated Glomerular Filt Rate > 60; Glucose Random 113 mg/dL (60-115); Potassium 4.6 mmol/L (3.3-5.1); Sodium 133 mmol/L (135-145); Uric Acid 6.5 mg/dL (3.4-7.0)
[2024-04-13 15:30] LABS: Cortisol Random 6.4 ug/dL
[2024-04-13 15:54] LABS: Osmolality, Serum 280 mosm/kg (281-305)
[2024-04-13 15:54] LABS: Osmolality Urine 664 mosm/kg (373-1093)
[2024-04-16 09:07] LABS: Oxcarbazepine 13.2 mcg/mL (8.0-35.0)
== END 2024-04-13 14:02 | disposition home or self-care (01) ==
LOC: HO.LAB 14:01
PROVIDERS: Psychiatry & Neurology Psychiatry; PCP Nurse Practitioner Family
DX: E87.1 Hypo-osmolality and hyponatremia (principal); F39 Unspecified mood [affective] disorder
CPT/HCPCS: 80048; 80339; 82533; 83930; 83935; 84300; 84550

== ENCOUNTER 2024-04-14 10:54 | Emergency (ER) | payer OTHER, SELFPAY ==
--- NOTE | ~2024-04-14 | CT_ITS ---
EXAMINATION: CT ABDOMEN AND PELVIS WITHOUT CONTRAST CLINICAL INFORMATION: Left flank and abdominal pain. History of stones. COMPARISON: CT abdomen pelvis 12/15/2023. TECHNIQUE: Multidetector volumetric imaging was performed from the superior aspect of the liver through the pubic symphysis. Sagittal and coronal reformatted images were obtained on the technologist's workstation. This CT examination was performed using dose optimization techniques as appropriate, variously including the following: *Automated exposure control *Adjustment of mA and/or kV according to patient size (this includes techniques or standardized protocols for targeted exams where dose is matched to indication/reason for exam; i.e. extremities or head) *Use of iterative reconstruction technique DLP 998 mGy/cm. FINDINGS: LUNG BASES: The visualized lung bases are unremarkable. LIVER, GALLBLADDER, AND BILIARY TREE: The liver is normal in size, shape, and attenuation. No focal hepatic lesion or biliary ductal dilatation is present. The gallbladder is unremarkable with no evidence of radiopaque gallstones, gallbladder wall thickening, or obvious pericholecystic inflammatory changes. PANCREAS: Unremarkable. SPLEEN: Unremarkable. ADRENAL GLANDS: Unremarkable. KIDNEYS AND URETERS: The kidneys are normal in size, shape, and attenuation. No hydronephrosis, hydroureter, or calculi seen. Mild bilateral perinephric stranding is noted. BLADDER: Unremarkable. GASTROINTESTINAL TRACT: There is scattered stool, diverticula and gas seen throughout the colon without distention. Postsurgical changes are seen in the proximal sigmoid colon with widely patent anastomosis.. The small bowel loops are normal caliber. There is no evidence of distention ABDOMINAL WALL: There is previous anterior abdominal wall hernia repair with mesh from midabdomen to the lower pelvis. A prominent left inguinal canal containing fat is noted similar to previous study. LYMPH NODES: Normal. VASCULAR: Unremarkable. PELVIC VISCERA: Unremarkable. OSSEOUS STRUCTURES: Grade 1 anterolisthesis L5 over S1 with L5-S1 degenerative disc changes. No aggressive lytic or sclerotic process seen. CT/CT abdomen pelvis wo IV con IMPRESSION: No acute intra-abdominal process seen. Previous sigmoid colon surgery with widely patent anastomotic segment. Colonic diverticulosis without diverticulitis. Mild constipation. No radiopaque urolith or hydroureteronephrosis. No major change compared to previous study 12/15/2023. Fleischner guidelines were followed. Electronically signed by: Luis Nova MD 04/14/2024 04:13 PM [facility]
[2024-04-14 11:00] VITALS: BP 158/90; PULSE 68; RESP 16; TEMP 36.6; O2SAT 99; BMI 36.7
--- NOTE | 2024-04-14 11:05 | ED_ITS ---
HPI - Male Genitourinary General Chief complaint: Urogenital-Male Stated complaint: urinary retention Time Seen by Provider: 04/14/24 14:56 Related Data Home Medications ?Medication ?Instructions ?Recorded ?Confirmed clonazepam 0.5 mg tablet See Rx Instructions .Route 05/28/23 03/23/24 .COMPLEX PRN Severe anxiety, Insomnia losartan 25 mg tablet 25 mg PO DAILY 05/28/23 03/23/24 Standard hand held cane 08/13/23 09/24/23 Previous Rx's ?Medication ?Instructions ?Recorded cane #1 ea 09/17/23 blood-glucose sensor (FreeStyle #6 ea 10/01/23 Lynne 3 Sensor device) alpha lipoic acid 600 mg capsule 600 mg PO Q24H #90 caps 11/20/23 metformin 500 mg tablet,extended 500 mg PO DAILY #90 tabs 12/16/23 release 24 hr omega-3 acid ethyl esters 1 gram 1 cap PO BID #180 caps 12/16/23 capsule aspirin 81 mg tablet,delayed 81 mg PO DAILY 90 days #90 tabs 01/03/24 release cholecalciferol (vitamin D3) 50 50 mcg PO DAILY 90 days #90 caps 01/03/24 mcg (2,000 unit) capsule cyanocobalamin (vitamin B-12) 500 500 mcg PO DAILY 30 days #30 tabs 01/07/24 mcg tablet blood-glucose meter,continuous #1 ea 01/14/24 (Dexcom G7 Black And White Printer Operator) blood-glucose sensor (Dexcom G7 #3 ea 01/14/24 Sensor device) albuterol sulfate 90 mcg/actuation 2 puff inhalation Q6H PRN 02/06/24 aerosol inhaler shortness of breath or wheezing 30 days #8.5 grams lithium carbonate 300 mg See Rx Instructions .Route 03/30/24 tablet,extended release .COMPLEX #20 tabs zinc citrate 11 mg chewable tablet 11 mg PO DAILY #30 tabs 03/30/24 gabapentin 300 mg capsule 300 mg PO TID #90 caps 04/01/24 thiamine HCl (vitamin B1) 100 mg 100 mg PO BID #60 tabs 04/03/24 tablet guanfacine 1 mg tablet,extended 1 mg PO DAILY as directed #30 tabs 04/04/24 release 24 hr lisdexamfetamine 10 mg capsule 10 mg PO QAM #30 caps 04/04/24 oxcarbazepine 300 mg tablet 300 mg PO BID #60 tabs 04/04/24 oxcarbazepine 600 mg tablet 600 mg PO BEDTIME #30 tabs 04/04/24 dulaglutide 1.5 mg/0.5 mL 1.5 mg (0.5 mL) subcut QWEEK #6 mL 04/11/24 subcutaneous pen injector (Trulicity) phenazopyridine 100 mg tablet 200 mg (2 x 100 mg) PO TID 2 days 04/14/24 (Pyridium) #6 tabs Allergies Allergy/AdvReac Type Severity Reaction Status Date / Time doxycycline Allergy Itching Verified 04/14/24 11:05 [facility] Past Medical History Medical History VSD (ventricular septal defect) Laird's palsy VSD (ventricular septal defect) Joint pain Pulmonary granuloma Encephalomalacia with cerebral infarction Stroke Gout Diverticulitis Fatty liver Splenomegaly Hypertriglyceridemia ANAYA on CPAP Mild asthma Ophthalmic migraine Heel spur ADHD Bipolar disorder Anxiety Type 2 diabetes mellitus with diabetic polyneuropathy, with long-term current use of insulin Essential hypertension Hyperlipidemia LDL goal <100 Vitamin D deficiency Obesity due to excess calories BMI 37.0-37.9, adult Type 2 diabetes mellitus with hyperglycemia Surgical History History of foot surgery History of hernia repair History of colectomy Family History Family History Father Diabetes mellitus Mental health disorder Mother HTN (hypertension) Maternal Uncle Diabetes mellitus Substance use disorder Mental health disorder Paternal Grandmother Diabetes mellitus Social History Social History Household Members: Significant Other and Children Housing: House Patient Tobacco Use Status: Former Tobacco user Tobacco use type: Cigarette Cigarettes Per Day: 8 Years Smoked: 25 e-Cigarette/Vaping Use: Currently Using Second Hand Smoke Exposure: No Substance Use Type: Marijuana service: No Current occupational status: disabled Cognitive needs: No Hearing needs: No Vision needs: No Physical Exam 2 Vital Signs: Vital Signs: Last Vital Signs Temp 97.7 F 04/14/24 17:25 Pulse 72 04/14/24 17:25 Resp 16 04/14/24 17:25 BP 184/89 H 04/14/24 17:25 Pulse Ox 96 04/14/24 17:25 O2 Del Method Room Air 04/14/24 17:25 BMI result Body Mass Index 36.7 Course Course Course Narrative: This is an RME performed by Paras Marks CNP: Additional HPI, ROS, PE not included below will be deferred to primary provider. Is a 48-year-old male presents emergency department for evaluation. He reports that he has not been able to urinate normal since yesterday evening. When he attempts to urinate throughout today multiple times it is difficult to when she had the stream and it is not constant flow as he would typically have. He reports that he has had this happen 1 other time in the past he came to emergency department and they thought that perhaps this was due to a passed kidney stone. He does admit to having some abdominal discomfort associated with this. Plan; serum labs, urinalysis, PVR bladder scan Reevaluation(s) Reevaluation #1: CBC unremarkable. Chemistry unremarkable. Time: 17:37 Medications Administered Discontinued Medications Generic Name Dose Route Start Last Admin Trade Name Freq PRN Reason Stop Dose Admin Clonazepam 0.5 mg 04/14/24 15:27 04/14/24 15:33 Clonazepam 0.5 Mg Tablet PO 04/14/24 15:28 0.5 mg ONCE ONE Administration Medical Decision Making Lab Data 04/14/24 11:26 04/14/24 11:26 Labs: Lab Results 04/14/24 04/14/24 Range/Units 11:26 11:27 WBC 7.3 (4.8-10.8) X10*3/uL RBC 5.29 (4.60-5.80) X10*6/uL Hgb 15.5 (14.0-18.0) g/dl Hct 43.0 (42.0-52.0) % MCV 81.3 (80.0-98.0) fL MCH 29.3 (27.0-33.0) pg MCHC 36.0 (31.0-36.0) g/dl RDW 12.8 (11.0-16.0) % Plt Count 177 D (160-400) X10*3/uL MPV 9.9 (9.4-12.4) fL Immature Gran % (Auto) 0.3 (0.0-0.4) % Neut % (Auto) 69.6 (45-73) % Lymph % (Auto) 20.5 (20-40) % [place] % (Auto) 8.1 (2-11) % Eos % (Auto) 1.1 (0-4) % Baso % (Auto) 0.4 (0-2) % Lymph # (Auto) 1.5 (1.2-4.9) X10*3/uL [place] # (Auto) 0.6 (0.1-1.2) X10*3/uL Eos # (Auto) 0.1 (0.0-0.4) X10*3/uL Baso # (Auto) 0.0 (0.0-0.2) X10*3/uL Abs Immat Gran (auto) 0.02 (0.00-0.03) X10*3/uL Absolute Neuts (auto) 5.1 (2.0-8.3) x10*3/uL Absolute Nucleated RBC 0.000 (0.0-0.012) X10*3/uL Nucleated RBC % (auto) 0.0 (0.0-0.2) /100WBC Sodium 134 L (135-145) mmol/L Potassium 4.8 (3.3-5.1) mmol/L Chloride 105 (96-108) mmol/L Carbon Dioxide 25 (22-29) mmol/L Anion Gap 9 L (12-20) BUN 12 (9-16) mg/dL Creatinine 0.84 (0.5-1.4) mg/dL Estim Creat Clear Calc 155.4 Estimated GFR > 60 Random Glucose 105 (60-115) mg/dL Calcium 9.4 (8.4-10.2) mg/dL Total Bilirubin 0.9 (0.0-1.0) mg/dL AST 32 (5-37) U/L ALT 39 (0-40) U/L Alkaline Phosphatase 81 (39-117) U/L Total Protein 7.6 (6.5-8.0) g/dL Albumin 4.6 (3.5-5.0) g/dL Urine Color Yellow Urine Appearance Clear Urine pH 6.5 (5.0-9.0) Ur Specific [place] 1.015 (1.005-1.025) Urine Protein Negative (Neg-Trace) mg/dL Urine Glucose (UA) Negative (Negative) mg/dL Urine Ketones Negative (Negative) mg/dL Urine Blood Negative (Negative) Urine Nitrite Negative (Negative) Ur Leukocyte Esterase Negative (Negative) [place] 0.21 L (0.60-1.20) mmol/L Critical Care Time Critical Care Time Critical Care Time: No Discharge Plan Discharge Clinical Impression: Dysuria, Abdominal pain, LLQ Patient Disposition: Home, Self-Care Instructions: Dysuria (ED), Abdominal Pain (ED) Additional Instructions: Take your medications as prescribed. If you were prescribed antibiotics today, it is important that you take your medication to their entirety, do not skip any doses, do not finish them early. Follow-up with your primary care provider this week. Return to the emergency department with new or worsening symptoms. Such as fevers, chills, chest pain, shortness of breath, nausea, vomiting, dizziness, headache, vision changes, lethargy In case of emergency call [address]/CT abdomen pelvis wo IV con IMPRESSION: No acute intra-abdominal process seen. Previous sigmoid colon surgery with widely patent anastomotic segment. Colonic diverticulosis without diverticulitis. Mild constipation. No radiopaque urolith or hydroureteronephrosis. No major change compared to previous study 12/15/2023. Fleischner guidelines were followed. Prescriptions: New phenazopyridine [Pyridium] 100 mg tablet 200 mg PO TID 2 Days Qty: 6 0RF No Action (DME) Standard hand held cane See Rx Instructions .[facility] Inst[facility]: to use when ambulating (DME) cane Device See Rx Instructions .Route Qty: 1 0RF Rx Instructions: straight, single legged cane (DME) FreeStyle Lynne 3 Sensor Device See Rx Instructions .Route Qty: 6 1RF Rx Instructions: As directed to monitor blood sugars alpha lipoic acid 600 mg capsule 600 mg PO Q24H Qty: 90 1RF metformin 500 mg tablet extended release 24 hr 500 mg PO DAILY Qty: 90 1RF omega-3 acid ethyl esters 1 gram capsule 1 cap PO BID Qty: 180 1RF cholecalciferol (vitamin D3) 50 mcg (2,000 unit) capsule 50 mcg PO DAILY 90 Days Qty: 90 1RF aspirin 81 mg tablet,delayed release (DR/EC) 81 mg PO DAILY 90 Days Qty: 90 1RF cyanocobalamin (vitamin B-12) 500 mcg tablet 500 mcg PO DAILY 30 Days Qty: 30 6RF (DME) Dexcom G7 Black And White Printer Operator Misc See Rx Instructions .Route Qty: 1 0RF Rx Instructions: To test blood sugar 4 times per day (DME) Dexcom G7 Sensor Device See Rx Instructions .Route Qty: 3 5RF Rx Instructions: test blood sugar 4 times per day albuterol sulfate 90 mcg/actuation HFA aerosol inhaler 2 puff inhalation Q6H PRN (Reason: shortness of breath or wheezing) 30 Days Qty: 8.5 2RF Rx Instructions: Last filled 03/09/24 gabapentin 300 mg capsule 300 mg PO TID Qty: 90 0RF Trulicity 1.5 mg/0.5 mL pen injector 1.5 mg subcut QWEEK Qty: 6 1RF lithium carbonate 300 mg tablet extended release See Rx Instructions .ROUTE .COMPLEX Qty: 20 0RF Rx Instructions: take 1/2 tablet po every evening for 4 days then increase to one tablet po every evening zinc citrate 11 mg tablet,chewable 11 mg PO DAILY Qty: 30 0RF thiamine HCl (vitamin B1) 100 mg tablet 100 mg PO BID Qty: 60 0RF guanfacine 1 mg tablet extended release 24 hr 1 mg PO DAILY Qty: 30 0RF lisdexamfetamine 10 mg capsule 10 mg PO QAM Qty: 30 0RF Rx Instructions: Partial Fill upon patient request. oxcarbazepine 600 mg tablet 600 mg PO BEDTIME Qty: 30 0RF oxcarbazepine 300 mg tablet 300 mg PO BID Qty: 60 0RF Rx Instructions: 300 mg orally; clonazepam 0.5 mg tablet See Rx Instructions .ROUTE .COMPLEX PRN (Reason: Severe anxiety, Insomnia) Rx Instructions: Take 1/2 tab to 1 tab BID twice a day for severe anxiety or insomnia. losartan 25 mg tablet 25 mg PO DAILY Referrals: [facility] [Provider Group] - 2 days Lázaro Browning FNP-BC [Primary Care Provider] - 2 days Stand Alone Forms: Work/School Release Interventions: ED Discharge Assessment Last Done: 04/14/24 17:25 Discharge Date/Time: 04/14/24 17:26 Print Language: Algerian
[2024-04-14 11:32] LABS: MANUAL DIFF FLAG NO
[2024-04-14 11:33] LABS: Basophils Percent Auto 0.4 % (0-2); Eosinophils Absolute Auto 0.1 X10*3/uL (0.0-0.4); Eosinophils Percent Auto 1.1 % (0-4); Hemoglobin 15.5 g/dl (14.0-18.0); Imm Gran Abs Auto 0.02 X10*3/uL (0.00-0.03); Imm Gran Pct Auto 0.3 % (0.0-0.4); Lymphocytes Absolute Auto 1.5 X10*3/uL (1.2-4.9); Lymphocytes Percent Auto 20.5 % (20-40); Mean Corpuscular Hemoglobin 29.3 pg (27.0-33.0); Mean Corpuscular Volume 81.3 fL (80.0-98.0); Mean Platelet Volume 9.9 fL (9.4-12.4); Monocytes Absolute Auto 0.6 X10*3/uL (0.1-1.2); Monocytes Percent Auto 8.1 % (2-11); Neutrophils Absolute Auto 5.1 x10*3/uL (2.0-8.3); Neutrophils Percent Auto 69.6 % (45-73); Platelet Count 177 X10*3/uL (160-400); Red Blood Count 5.29 X10*6/uL (4.60-5.80); Red Cell Distribution Width 12.8 % (11.0-16.0); White Blood Count 7.3 X10*3/uL (4.8-10.8)
[2024-04-14 11:34] LABS: Appearance Urine Clear; Color Urine Yellow; Glucose Urine UA Negative (Negative); Leukocyte Esterase Urine Negative (Negative); Nitrite Urine Negative (Negative); PH 6.5 (5.0-9.0); Specific Gravity - Urine 1.015 (1.005-1.025); Urine Blood Negative (Negative); Urine Ketones Negative (Negative); Urine Protein Negative (Neg-Trace)
[2024-04-14 11:44] LABS: Lithium 0.21 mmol/L (0.60-1.20)
[2024-04-14 11:53] LABS: Albumin Level 4.6 g/dL (3.5-5.0); Alkaline Phosphatase 81 U/L (39-117); Anion Gap 9 (12-20); Aspartate Amino Transferase 32 U/L (5-37); Bilirubin Total 0.9 mg/dL (0.0-1.0); Blood Urea Nitrogen 12 mg/dL (9-16); Calcium 9.4 mg/dL (8.4-10.2); Carbon Dioxide 25 mmol/L (22-29); Chloride 105 mmol/L (96-108); Creatinine Clr Calc Pharmacy 155.4; Estimated Glomerular Filt Rate > 60; Glucose Random 105 mg/dL (60-115); Potassium 4.8 mmol/L (3.3-5.1); Sodium 134 mmol/L (135-145); Total Protein 7.6 g/dL (6.5-8.0)
[2024-04-14 12:12] LABS: Alanine Aminotransferase 39 U/L (0-40)
[2024-04-14 15:32] VITALS: BP 184/89; PULSE 72; RESP 16; TEMP 36.5; O2SAT 96
[2024-04-14] MEDS: clonazePAM 0.5 MG TABLET PO (15:33)
[2024-04-14 17:25] VITALS: BP 184/89; PULSE 72; RESP 16; TEMP 36.5; O2SAT 96
== END 2024-04-14 17:26 | disposition home or self-care (01) ==
PROVIDERS: Nurse Practitioner Family; Emergency Provider Emergency Medicine; PCP Nurse Practitioner Family
DX: R33.9 Retention of urine, unspecified (principal); R10.32 Left lower quadrant pain; R10.2 Pelvic and perineal pain; Z79.899 Other long term (current) drug therapy; Z87.891 Personal history of nicotine dependence
CPT/HCPCS: 36415; 74176; 80053; 80178; 81003; 85025; 99284

== ENCOUNTER → 2024-04-14 15:27 | Outpatient (BNV) | payer OTHER, SELFPAY | PROVIDERS: Emergency Provider Emergency Medicine; PCP Nurse Practitioner Family; Visit Provider Radiology Diagnostic Radiology | DX: R10.32 Left lower quadrant pain (principal) | CPT/HCPCS: 74176 ==

== ENCOUNTER 2024-04-20 12:15 | Outpatient (RCR) | payer OTHER, SELFPAY ==
[2024-03-23 11:15] VITALS: BMI 37.2
[2024-03-23 11:17] VITALS: BP 138/86; PULSE 68; TEMP 36.9
--- NOTE | 2024-03-23 12:32 | PC.ADMIT ---
Patient is a 48 year old male who was referred to [facility] by his therapist d/t increased depression, anxiety, and anger. Patient has a history of Bipolar disorder, opiate use (denied currently), alcohol use, and Marijuana use. Patient is living with his girlfriend. He reports he moved in with girlfriend February 2023 and describers her as being, a little supportive who does not understand his mental health issues. Patient reports he wants to work on his anger while at [facility] and depression. Patient has 4 children. He has a set of twins who are age 18, and two other adult children ages 24, and age 25. He is upset with his twin children who chose to live with their mother instead of him when they turned 18. He struggles with this since he has raised them since they were born. Reports some of his children struggle with mental health issues and he does not feel he has a relationship with his children at this time. Reports feelings of guilt surrounding this. Patient has a history of substance use, denied current use with the exception of Marijuana which he uses throughout the day. Patient also stated he drinks whiskey about once a month having a double at times with his brother. Denied any history of withdrawal sxs from alcohol. Patient is alert and oriented x4. Calm and cooperative. His thoughts are clear and logical. He presented with irritable mood at times with depression however he was cooperative. He denied current SI. Reports he has had thoughts however denied plan or intent to kill himself. He was given a copy of his safety plan if needed. Medications reconciled with patient and patient's pharmacy. He stated he forgot to take his medications this morning.
--- NOTE | 2024-03-23 22:57 | P.HPPSP_ITS ---
HPI Chief Complaint: bipolar Sources of Information: patient interviewed, chart reviewed and crisis/core team assessment reviewed HPI Narrative: This is the first [facility] admission for this 48 yo male with history of depression, anger and mood disorder. He reports being diagnosed with severe ADHD in childhood and was treated on Ritalin from 1st until 4th grade [facility] Medical History (Updated 03/23/24 @ 23:12 by Demi Yo MD) VSD (ventricular septal defect) Laird's palsy VSD (ventricular septal defect) Joint pain Pulmonary granuloma Encephalomalacia with cerebral infarction Stroke Gout Diverticulitis Fatty liver Splenomegaly Hypertriglyceridemia ANAYA on CPAP Mild asthma Ophthalmic migraine Heel spur ADHD Bipolar disorder Anxiety Type 2 diabetes mellitus with diabetic polyneuropathy, with long-term current use of insulin Essential hypertension Hyperlipidemia LDL goal <100 Vitamin D deficiency Obesity due to excess calories BMI 37.0-37.9, adult Type 2 diabetes mellitus with hyperglycemia Surgical History History of foot surgery History of hernia repair History of colectomy Diagnostics Vital Signs (24Hr): Vital Signs - 24 hr 03/23/24 11:17 Temperature 98.4 F Pulse Rate 68 Blood Pressure 138/86 BMI result Body Mass Index 37.2 Meds/Allergies Meds Home Medications ?Medication ?Instructions ?Recorded ?Confirmed ?Type clonazepam 0.5 mg tablet See Rx Instructions .Route 05/28/23 03/23/24 History .COMPLEX PRN Severe anxiety, Insomnia losartan 25 mg tablet 25 mg PO DAILY 05/28/23 03/23/24 History Standard hand held cane 08/13/23 09/24/23 History Allergies Allergies Allergy/AdvReac Type Severity Reaction Status Date / Time doxycycline Allergy Itching Verified 12/20/23 10:12 Assessment & Plan Assessment & Plan (1) Mood disorder: Status: Acute Code(s): F39 - Unspecified mood [affective] disorder (2) Other impulse disorders: Status: Acute Code(s): F63.89 - Other impulse disorders Assessment and Plan: r/o Intermittent Explosive Disorder otherwise likely related to ADHD (3) History of ADHD: Status: Acute Code(s): Z86.59 - Personal history of other mental and behavioral disorders Plan Admit to PHP VS reviewed: abrefile, BP ? bpm titrate oxcarbazepine to 600 mg BID (if partially treated, may consider low dose risperidone or other SGA vs [place]) will consider trialing Wellbutrin once irritability better controlled continue other regular medications? Routine lab work ordered for tomorrow EKG, routine for baseline QTc for medication considerations as indicated UDS as indicated MassPat reviewed Continue to monitor as per protocol Patient educated on: diagnosis and medication risk/benefits Informed Consent: understands Reason for continued partial hosp. stay Substantial Risk for: harm to others, inability to function, rapid decompensation and med/psych decompensation Certification I certify that partial hospital treatment is medically necessary due to the symptoms and problems resulting from the patient's mental illness and the failure to treat the patient at the partial hospital level of care would likely result in the patient requiring inpatient psychiatric care which could not be prevented at a less intensive level of care. Time Spent With Patient Time: Total time managing care of this patient today _60___ minutes.
[2024-03-28 11:44] LABS: Amphetamine Screen Urine Not Detected (Not Detect); Barbiturates, Urine Not Detected (Not Detect); Benzodiazepines Screen Urine Not Detected (Not Detect); Buprenorphine Scr Not Detected (Not Detect); Cannabinoid Screen Urine POSITIVE (Not Detect); Cocaine Screen Urine Not Detected (Not Detect); Fentanyl, urine Not Detected (Not Detect); Methadone Screen, Urine Not Detected (Not Detect); Opiate Screen Urine Not Detected (Not Detect); Oxycodone Screen Urine Not Detected (Not Detect); Phencyclidine Screen Urine Not Detected (Not Detect)
--- NOTE | 2024-03-30 23:16 | HO.PHPPROGNO ---
Subjective Subjective Date of Service: 03/30/24 Reason For Visit: bipolar Interim History: Patient seen for follow up. Exhausted Patient feeling more tired since increasing dose of oxcarbazepine from 300 to 600 mg in AM. He continues to take 600 mg qhs wihtout issues. He reports a low holcomb holiday, cooing, watching football, falling asleep . Was difficult to stay awake as the night socorro on. We reviewed recent lab work. He is open to try splitting dose of oxcarbazepine (taking more at night) as to avoid daytime sedation. In reviewing medication history. He was reportedly treated on lithium which was helpful, although it has been a few years since then. He had been at doses as high as >2000 mg as the sole mood stabilizer. Now that [facility] is on board he perhaps will respond to [place] at a much lower dose. We also considered low dose Wellbutrin if lithium not tolerated, but he feels this may have cause some overstimulation/irritability however he was not on a mood stabilizer at that time. Mental Status Exam Mental Status Exam Narrative: Alert, oriented, in no acute distress. Calm, cooperative, engaged. No psychomotor agitation or neurovegetative retardation. Eye contact maintained. Mood depressed, affect constricted, irritable edge without notable lability. Speech normal. Thought process linear, coherent. Thought content related to stressors, transient helplessness, no hopelessness noted, denies SI, intention, urge or plan. Denies any aggressive ideation or HI. No paranoia or delusional content elicited. No evidence of psychosis. Insight and judgment - fair but adequate Diagnostics Vital Signs (24Hr): BMI result Body Mass Index 37.2 Assessment & Plan Assessment & Plan (1) Mood disorder: Status: Acute Code(s): F39 - Unspecified mood [affective] disorder (2) Other impulse disorders: Status: Acute Code(s): F63.89 - Other impulse disorders Assessment and Plan: r/o Intermittent Explosive Disorder otherwise likely related to ADHD (3) History of ADHD: Status: Acute Code(s): Z86.59 - Personal history of other mental and behavioral disorders Plan cont oxcarbazepine 1200 mg/d mg (split as 450/750 instead of 600 BID which is causing some sedation in AM) start lithium (low dose) 150 mg x 2-4 days, then increase to 300 mg ER QHS as tolerated start zinc citrate 8-11 mg/d continue clonazepam 0.5 mg BID prn continue other regular medications: losartan, metformin, albuterol, insulin, vitamin D Routine lab work - pending thiamine level (returned low <6) EKG, routine for baseline QTc for medication considerations as indicated UDS as indicated Continue to monitor Patient educated on: diagnosis and medication risk/benefits Informed Consent: understands Reason for contiued partial hosp. stay Substantial Risk for: inability to function, rapid decompensation and med/psych decompensation Certification I certify that partial hospital treatment is medically necessary due to the symptoms and problems resulting from the patient's mental illness and the failure to treat the patient at the partial hospital level of care would likely result in the patient requiring inpatient psychiatric care which could not be prevented at a less intensive level of care. Total time managing care of this patient today _30___ minutes. Discharge Plan Discharge Attending provider: Demi Yo Medications: New lithium carbonate 300 mg tablet extended release See Rx Instructions .ROUTE .COMPLEX Qty: 20 0RF Rx Instructions: take 1/2 tablet po every evening for 4 days then increase to one tablet po every evening zinc citrate 11 mg tablet,chewable 11 mg PO DAILY Qty: 30 0RF thiamine HCl (vitamin B1) 100 mg tablet 100 mg PO BID Qty: 60 0RF Continued (DME) FreeStSazneo Lynne 3 Sensor Device See Rx Instructions .Route Qty: 6 1RF Rx Instructions: As directed to monitor blood sugars Trulicity 1.5 mg/0.5 mL pen injector 1.5 mg subcut QWEEK Qty: 6 1RF alpha lipoic acid 600 mg capsule 600 mg PO Q24H Qty: 90 1RF metformin 500 mg tablet extended release 24 hr 500 mg PO DAILY Qty: 90 1RF omega-3 acid ethyl esters 1 gram capsule 1 cap PO BID Qty: 180 1RF cholecalciferol (vitamin D3) 50 mcg (2,000 unit) capsule 50 mcg PO DAILY 90 Days Qty: 90 1RF aspirin 81 mg tablet,delayed release (DR/EC) 81 mg PO DAILY 90 Days Qty: 90 1RF cyanocobalamin (vitamin B-12) 500 mcg tablet 500 mcg PO DAILY 30 Days Qty: 30 6RF (DME) Dexcom G7 Diagram Clerk Misc See Rx Instructions .Route Qty: 1 0RF Rx Instructions: To test blood sugar 4 times per day (DME) Dexcom G7 Sensor Device See Rx Instructions .Route Qty: 3 5RF Rx Instructions: test blood sugar 4 times per day albuterol sulfate 90 mcg/actuation HFA aerosol inhaler 2 puff inhalation Q6H PRN (Reason: shortness of breath or wheezing) 30 Days Qty: 8.5 2RF Rx Instructions: Last filled 03/09/24 clonazepam 0.5 mg tablet See Rx Instructions .ROUTE .COMPLEX PRN (Reason: Severe anxiety, Insomnia) Rx Instructions: Take 1/2 tab to 1 tab BID twice a day for severe anxiety or insomnia. losartan 25 mg tablet 25 mg PO DAILY Changed oxcarbazepine 300 mg tablet See Rx Instructions .ROUTE .COMPLEX Qty: 60 0RF Rx Instructions: take 1.5 tablets po qAM and take 2.5 tablets po qHS No Action (DME) Standard hand held cane See Rx Instructions .Route .MEDSUPPLY Rx Instructions: to use when ambulating (DME) cane Device See Rx Instructions .Route Qty: 1 0RF Rx Instructions: straight, single legged cane gabapentin 300 mg capsule 300 mg PO TID Qty: 90 0RF Print Language: Israeli
--- NOTE | 2024-04-03 16:05 | HO.PHP ---
[facility] staff member followed up with Car due to him reporting that he reached out to crisis over the weekend. Car voiced that his head wouldn?t stop with his thoughts and then when his son got sectioned it made his thoughts worse. [facility] staff explored with Car what his thoughts were. Car disclosed that he engaged internal dialog which makes him angry because he is creating scenarios in his head with another person. Car disclosed that he was worried he was going to act on those angry thoughts; therefore he reached out to someone. Car reported he is currently having no SI, plan or intent. Last time he had SI was on Wednesday without a plan or intent. [facility] staff assessed if he is experiencing any safety concerns. Car stated he is safe and will be in attendance to program tomorrow. [facility] staff explored with Car what he will be doing after program. Car mentioned his girlfriend is working tonight; therefore, he is going to relax and watch TV. [facility] staff member was receptive.
--- NOTE | 2024-04-04 14:49 | HO.PHPPROGNO ---
Subjective Subjective Date of Service: 04/04/24 Reason For Visit: bipolar Interim History: Patient seen for follow up. Had a difficult weekend, wound up calling crisis. Struggling with mood, family things also been rough . Often feels restless, impulsive, hyper, has poor frustration tolerance. These are long standing issues, stemming from childhood. Had been a very rambunctious and hyper in his youth but as an adult struggles more with low frustration tolerance. Had been treated for ADHD throughout his childhood/adolescence. Was tried again on stimulants some years ago but did not find them particularly helpful at the time as was causing some anxiety. Was not on any other medications or mood stabilizers at the time. Currently anxiety has been running high . Will plan to start guanfacine to help with anxiety, for now will order Vyvanse (to see if will get through insurance). For now will increase lithium Er 300 mg to whole tablet. He is tolerating oxcarbazepine at 450/750. Medication Compliance: Yes Side effects from medications: No Attending Groups: Yes Review of Systems Acute medical concerns: No Mental Status Exam Mental Status Exam Narrative: Alert, oriented, in no acute distress. Calm, cooperative, engaged. No psychomotor agitation or neurovegetative retardation. Eye contact maintained. Mood depressed, affect constricted, irritable edge without notable lability. Speech normal. Thought process linear, coherent. Thought content related to stressors, transient helplessness, no hopelessness noted, denies SI, intention, urge or plan. Denies any aggressive ideation or HI. No paranoia or delusional content elicited. No evidence of psychosis. Insight and judgment - fair but adequate Diagnostics Vital Signs (24Hr): BMI result Body Mass Index 37.2 Assessment & Plan Assessment & Plan (1) Mood disorder: Status: Acute Code(s): F39 - Unspecified mood [affective] disorder (2) Other impulse disorders: Status: Acute Code(s): F63.89 - Other impulse disorders Assessment and Plan: r/o Intermittent Explosive Disorder otherwise likely related to ADHD (3) History of ADHD: Status: Acute Code(s): Z86.59 - Personal history of other mental and behavioral disorders Plan cont oxcarbazepine 1200 mg/d mg (split as 450/750 instead of 600 BID which is causing some sedation in AM) increase lithium to 300 mg ER QHS start guanfacine ER 1 mg qam continue clonazepam 0.5 mg BID prn (will plan to start low dose stimulant to address ADHD (impulsivity) once mood is stabilized continue zinc citrate 8-11 mg/d continue thiamine 100 mg BID continue other regular medications: losartan, metformin, albuterol, insulin, vitamin D Routine lab work - pending thiamine level (returned low <6) EKG, routine for baseline QTc for medication considerations as indicated UDS as indicated Continue to monitor Patient educated on: diagnosis and medication risk/benefits Informed Consent: understands Reason for contiued partial hosp. stay Substantial Risk for: inability to function, rapid decompensation and med/psych decompensation Certification I certify that partial hospital treatment is medically necessary due to the symptoms and problems resulting from the patient's mental illness and the failure to treat the patient at the partial hospital level of care would likely result in the patient requiring inpatient psychiatric care which could not be prevented at a less intensive level of care. Total time managing care of this patient today __30__ minutes. Discharge Plan Discharge Attending provider: Demi Yo Medications: New lithium carbonate 300 mg tablet extended release See Rx Instructions .ROUTE .COMPLEX Qty: 20 0RF Rx Instructions: take 1/2 tablet po every evening for 4 days then increase to one tablet po every evening zinc citrate 11 mg tablet,chewable 11 mg PO DAILY Qty: 30 0RF thiamine HCl (vitamin B1) 100 mg tablet 100 mg PO BID Qty: 60 0RF guanfacine 1 mg tablet extended release 24 hr 1 mg PO DAILY Qty: 30 0RF lisdexamfetamine 10 mg capsule 10 mg PO QAM Qty: 30 0RF Rx Instructions: Partial Fill upon patient request. oxcarbazepine 600 mg tablet 600 mg PO BEDTIME Qty: 30 0RF Continued (DME) FreeStyle Lynne 3 Sensor Device See Rx Instructions .Route Qty: 6 1RF Rx Instructions: As directed to monitor blood sugars Trulicity 1.5 mg/0.5 mL pen injector 1.5 mg subcut QWEEK Qty: 6 1RF alpha lipoic acid 600 mg capsule 600 mg PO Q24H Qty: 90 1RF metformin 500 mg tablet extended release 24 hr 500 mg PO DAILY Qty: 90 1RF omega-3 acid ethyl esters 1 gram capsule 1 cap PO BID Qty: 180 1RF cholecalciferol (vitamin D3) 50 mcg (2,000 unit) capsule 50 mcg PO DAILY 90 Days Qty: 90 1RF aspirin 81 mg tablet,delayed release (DR/EC) 81 mg PO DAILY 90 Days Qty: 90 1RF cyanocobalamin (vitamin B-12) 500 mcg tablet 500 mcg PO DAILY 30 Days Qty: 30 6RF (DME) Dexcom G7 Senior Medical Billing Specialist Misc See Rx Instructions .Route Qty: 1 0RF Rx Instructions: To test blood sugar 4 times per day (DME) Dexcom G7 Sensor Device See Rx Instructions .Route Qty: 3 5RF Rx Instructions: test blood sugar 4 times per day albuterol sulfate 90 mcg/actuation HFA aerosol inhaler 2 puff inhalation Q6H PRN (Reason: shortness of breath or wheezing) 30 Days Qty: 8.5 2RF Rx Instructions: Last filled 03/09/24 clonazepam 0.5 mg tablet See Rx Instructions .ROUTE .COMPLEX PRN (Reason: Severe anxiety, Insomnia) Rx Instructions: Take 1/2 tab to 1 tab BID twice a day for severe anxiety or insomnia. losartan 25 mg tablet 25 mg PO DAILY Changed oxcarbazepine 300 mg tablet 300 mg PO BID Qty: 60 0RF Rx Instructions: 300 mg orally; No Action (DME) Standard hand held cane See Rx Instructions .Route .MEDSUPPLY Rx Instructions: to use when ambulating (DME) cane Device See Rx Instructions .Route Qty: 1 0RF Rx Instructions: straight, single legged cane gabapentin 300 mg capsule 300 mg PO TID Qty: 90 0RF Print Language: Paraguayan
--- NOTE | 2024-04-11 21:45 | P.PNPSP_ITS ---
Subjective Subjective Date of Service: 04/11/24 Reason For Visit: bipolar Mental Status Exam Mental Status Exam Narrative: Alert, oriented, in no acute distress. Calm, cooperative, engaged. No psychomotor agitation or neurovegetative retardation. Eye contact maintained. Mood depressed, affect constricted, irritable edge without notable lability. Speech normal. Thought process linear, coherent. Thought content related to stressors, transient helplessness, no hopelessness noted, denies SI, intention, urge or plan. Denies any aggressive ideation or HI. No paranoia or delusional content elicited. No evidence of psychosis. Insight and judgment - fair but adequate Diagnostics Vital Signs (24Hr): BMI result Body Mass Index 37.2 Assessment & Plan Assessment & Plan (1) Mood disorder: Status: Acute Code(s): F39 - Unspecified mood [affective] disorder (2) Other impulse disorders: Status: Acute Code(s): F63.89 - Other impulse disorders Assessment and Plan: r/o Intermittent Explosive Disorder otherwise likely related to ADHD (3) History of ADHD: Status: Acute Code(s): Z86.59 - Personal history of other mental and behavioral disorders Plan cont oxcarbazepine 1200 mg/d mg (split as 450/750 instead of 600 BID which is causing some sedation in AM) continue lithium 300 mg ER QHS hold guanfacine ER 1 mg (?side effects) continue clonazepam 0.5 mg BID prn (will plan to start low dose stimulant to address ADHD (impulsivity) once mood is stabilized continue zinc citrate 8-11 mg/d continue thiamine 100 mg BID continue other regular medications: losartan, metformin, albuterol, insulin, vitamin D Routine lab work - low thiamine level (low <6) EKG, routine for baseline QTc for medication considerations as indicated UDS as indicated Continue to monitor Patient educated on: diagnosis and medication risk/benefits Informed Consent: understands Reason for contiued partial hosp. stay Substantial Risk for: med/psych decompensation Certification I certify that partial hospital treatment is medically necessary due to the symptoms and problems resulting from the patient's mental illness and the failure to treat the patient at the partial hospital level of care would likely result in the patient requiring inpatient psychiatric care which could not be prevented at a less intensive level of care. Total time managing care of this patient today ___30_ minutes. Discharge Plan Discharge Attending provider: Patenaude,Demi Medications: New lithium carbonate 300 mg tablet extended release See Rx Instructions .ROUTE .COMPLEX Qty: 20 0RF Rx Instructions: take 1/2 tablet po every evening for 4 days then increase to one tablet po every evening zinc citrate 11 mg tablet,chewable 11 mg PO DAILY Qty: 30 0RF thiamine HCl (vitamin B1) 100 mg tablet 100 mg PO BID Qty: 60 0RF guanfacine 1 mg tablet extended release 24 hr 1 mg PO DAILY Qty: 30 0RF lisdexamfetamine 10 mg capsule 10 mg PO QAM Qty: 30 0RF Rx Instructions: Partial Fill upon patient request. oxcarbazepine 600 mg tablet 600 mg PO BEDTIME Qty: 30 0RF Continued (DME) FreeStyle Lynne 3 Sensor Device See Rx Instructions .Route Qty: 6 1RF Rx Instructions: As directed to monitor blood sugars alpha lipoic acid 600 mg capsule 600 mg PO Q24H Qty: 90 1RF metformin 500 mg tablet extended release 24 hr 500 mg PO DAILY Qty: 90 1RF omega-3 acid ethyl esters 1 gram capsule 1 cap PO BID Qty: 180 1RF cholecalciferol (vitamin D3) 50 mcg (2,000 unit) capsule 50 mcg PO DAILY 90 Days Qty: 90 1RF aspirin 81 mg tablet,delayed release (DR/EC) 81 mg PO DAILY 90 Days Qty: 90 1RF cyanocobalamin (vitamin B-12) 500 mcg tablet 500 mcg PO DAILY 30 Days Qty: 30 6RF (DME) Dexcom G7 Antique Collector Misc See Rx Instructions .Route Qty: 1 0RF Rx Instructions: To test blood sugar 4 times per day (DME) Dexcom G7 Sensor Device See Rx Instructions .Route Qty: 3 5RF Rx Instructions: test blood sugar 4 times per day albuterol sulfate 90 mcg/actuation HFA aerosol inhaler 2 puff inhalation Q6H PRN (Reason: shortness of breath or wheezing) 30 Days Qty: 8.5 2RF Rx Instructions: Last filled 03/09/24 clonazepam 0.5 mg tablet See Rx Instructions .ROUTE .COMPLEX PRN (Reason: Severe anxiety, Insomnia) Rx Instructions: Take 1/2 tab to 1 tab BID twice a day for severe anxiety or insomnia. losartan 25 mg tablet 25 mg PO DAILY Changed oxcarbazepine 300 mg tablet 300 mg PO BID Qty: 60 0RF Rx Instructions: 300 mg orally; No Action (DME) Standard hand held cane See Rx Instructions .Route .MEDSUPPLY Rx Instructions: to use when ambulating (DME) cane Device See Rx Instructions .Route Qty: 1 0RF Rx Instructions: straight, single legged cane gabapentin 300 mg capsule 300 mg PO TID Qty: 90 0RF Trulicity 1.5 mg/0.5 mL pen injector 1.5 mg subcut QWEEK Qty: 6 1RF Print Language: Montserratian
[2024-04-12 09:15] VITALS: BP 120/76; PULSE 68
--- NOTE | 2024-04-13 15:55 | PC.NURSE ---
EKG results: Sinus Rhythm with 1st degree AV block. L axis deviation. Non specific intra ventricular conduction delay. Labs: NA 130, GAP 10, CK total 389, HCT 41.2, PLT 141, Cisco 0.20, EBV-VAC IGG Ab 239, EBV-VCA Igm Ab 36.0, EBV-NA Igg 281.0. Dr Yo is aware. Plan to decrease Oxcarbazapine. Patient had an EKG done on 11/22/23 with similar results. Faxed EKG results and Lab results to patient's PCP Dr. Lázaro Browning. Spoke to Arlet from Dr. Banks's office and asked to speak to a nurse to review results and to confirm results were received via fax. Awaiting call back.
--- NOTE | 2024-04-13 23:33 | P.PNPSP_ITS ---
Subjective Subjective Date of Service: 04/13/24 Reason For Visit: bipolar Mental Status Exam Mental Status Exam Narrative: Alert, oriented, in no acute distress. Calm, cooperative, engaged. No psychomotor agitation or neurovegetative retardation. Eye contact maintained. Mood depressed, affect constricted, irritable edge without notable lability. Speech normal. Thought process linear, coherent. Thought content related to stressors, transient helplessness, no hopelessness noted, denies SI, intention, urge or plan. Denies any aggressive ideation or HI. No paranoia or delusional content elicited. No evidence of psychosis. Insight and judgment - fair but adequate Diagnostics Vital Signs (24Hr): BMI result Body Mass Index 37.2 Assessment & Plan Assessment & Plan (1) Mood disorder: Status: Acute Code(s): F39 - Unspecified mood [affective] disorder (2) Other impulse disorders: Status: Acute Code(s): F63.89 - Other impulse disorders Assessment and Plan: r/o Intermittent Explosive Disorder otherwise likely related to ADHD (3) History of ADHD: Status: Acute Code(s): Z86.59 - Personal history of other mental and behavioral disorders Certification I certify that partial hospital treatment is medically necessary due to the symptoms and problems resulting from the patient's mental illness and the failure to treat the patient at the partial hospital level of care would likely result in the patient requiring inpatient psychiatric care which could not be prevented at a less intensive level of care. Total time managing care of this patient today ____ minutes. Discharge Plan Discharge Attending provider: Demi Yo Medications: New lithium carbonate 300 mg tablet extended release See Rx Instructions .ROUTE .COMPLEX Qty: 20 0RF Rx Instructions: take 1/2 tablet po every evening for 4 days then increase to one tablet po every evening zinc citrate 11 mg tablet,chewable 11 mg PO DAILY Qty: 30 0RF thiamine HCl (vitamin B1) 100 mg tablet 100 mg PO BID Qty: 60 0RF guanfacine 1 mg tablet extended release 24 hr 1 mg PO DAILY Qty: 30 0RF lisdexamfetamine 10 mg capsule 10 mg PO QAM Qty: 30 0RF Rx Instructions: Partial Fill upon patient request. oxcarbazepine 600 mg tablet 600 mg PO BEDTIME Qty: 30 0RF Continued (DME) TapIn[employer] Lynne 3 Sensor Device See Rx Instructions .Route Qty: 6 1RF Rx Instructions: As directed to monitor blood sugars alpha lipoic acid 600 mg capsule 600 mg PO Q24H Qty: 90 1RF metformin 500 mg tablet extended release 24 hr 500 mg PO DAILY Qty: 90 1RF omega-3 acid ethyl esters 1 gram capsule 1 cap PO BID Qty: 180 1RF cholecalciferol (vitamin D3) 50 mcg (2,000 unit) capsule 50 mcg PO DAILY 90 Days Qty: 90 1RF aspirin 81 mg tablet,delayed release (DR/EC) 81 mg PO DAILY 90 Days Qty: 90 1RF cyanocobalamin (vitamin B-12) 500 mcg tablet 500 mcg PO DAILY 30 Days Qty: 30 6RF (DME) Dexcom G7 Concrete Laborer Misc See Rx Instructions .Route Qty: 1 0RF Rx Instructions: To test blood sugar 4 times per day (DME) Dexcom G7 Sensor Device See Rx Instructions .Route Qty: 3 5RF Rx Instructions: test blood sugar 4 times per day albuterol sulfate 90 mcg/actuation HFA aerosol inhaler 2 puff inhalation Q6H PRN (Reason: shortness of breath or wheezing) 30 Days Qty: 8.5 2RF Rx Instructions: Last filled 03/09/24 clonazepam 0.5 mg tablet See Rx Instructions .ROUTE .COMPLEX PRN (Reason: Severe anxiety, Insomnia) Rx Instructions: Take 1/2 tab to 1 tab BID twice a day for severe anxiety or insomnia. losartan 25 mg tablet 25 mg PO DAILY Changed oxcarbazepine 300 mg tablet 300 mg PO BID Qty: 60 0RF Rx Instructions: 300 mg orally; No Action (DME) Standard hand held cane See Rx Instructions .Route .MEDSUPPLY Rx Instructions: to use when ambulating (DME) cane Device See Rx Instructions .Route Qty: 1 0RF Rx Instructions: straight, single legged cane gabapentin 300 mg capsule 300 mg PO TID Qty: 90 0RF Trulicity 1.5 mg/0.5 mL pen injector 1.5 mg subcut QWEEK Qty: 6 1RF phenazopyridine [Pyridium] 100 mg tablet 200 mg PO TID 2 Days Qty: 6 0RF Print Language: Swedish
--- NOTE | 2024-04-14 10:57 | PC.NURSE ---
Patient c/o urinary retention starting yesterday afternoon. Lab results Sodium 133, Osmolality 280, Kendall random 6.4 Ur Sodium 69.0. Reviewed with Dr. Yo. Patient sent to [facility] for evaluation per Dr Yo's instructions. Escorted patient to the ER without incident.
--- NOTE | 2024-04-18 23:02 | P.PNPSP_ITS ---
Subjective Subjective Date of Service: 04/18/24 Reason For Visit: bipolar Diagnostics Vital Signs (24Hr): BMI result Body Mass Index 37.2 Assessment & Plan Certification I certify that partial hospital treatment is medically necessary due to the symptoms and problems resulting from the patient's mental illness and the failure to treat the patient at the partial hospital level of care would likely result in the patient requiring inpatient psychiatric care which could not be prevented at a less intensive level of care. Total time managing care of this patient today ____ minutes. Discharge Plan Discharge Attending provider: Demi Yo Medications: New lithium carbonate 300 mg tablet extended release See Rx Instructions .ROUTE .COMPLEX Qty: 20 0RF Rx Instructions: take 1/2 tablet po every evening for 4 days then increase to one tablet po every evening zinc citrate 11 mg tablet,chewable 11 mg PO DAILY Qty: 30 0RF thiamine HCl (vitamin B1) 100 mg tablet 100 mg PO BID Qty: 60 0RF guanfacine 1 mg tablet extended release 24 hr 1 mg PO DAILY Qty: 30 0RF lisdexamfetamine 10 mg capsule 10 mg PO QAM Qty: 30 0RF Rx Instructions: Partial Fill upon patient request. oxcarbazepine 600 mg tablet 600 mg PO BEDTIME Qty: 30 0RF nicotine 7 mg/24 hr patch 24 hour 1 patch transdermal Q24H Qty: 28 0RF Continued (DME) FreeStyle Lynne 3 Sensor Device See Rx Instructions .Route Qty: 6 1RF Rx Instructions: As directed to monitor blood sugars alpha lipoic acid 600 mg capsule 600 mg PO Q24H Qty: 90 1RF metformin 500 mg tablet extended release 24 hr 500 mg PO DAILY Qty: 90 1RF omega-3 acid ethyl esters 1 gram capsule 1 cap PO BID Qty: 180 1RF cholecalciferol (vitamin D3) 50 mcg (2,000 unit) capsule 50 mcg PO DAILY 90 Days Qty: 90 1RF aspirin 81 mg tablet,delayed release (DR/EC) 81 mg PO DAILY 90 Days Qty: 90 1RF cyanocobalamin (vitamin B-12) 500 mcg tablet 500 mcg PO DAILY 30 Days Qty: 30 6RF (DME) Dexcom G7 Steam Shovelman Misc See Rx Instructions .Route Qty: 1 0RF Rx Instructions: To test blood sugar 4 times per day (DME) Dexcom G7 Sensor Device See Rx Instructions .Route Qty: 3 5RF Rx Instructions: test blood sugar 4 times per day albuterol sulfate 90 mcg/actuation HFA aerosol inhaler 2 puff inhalation Q6H PRN (Reason: shortness of breath or wheezing) 30 Days Qty: 8.5 2RF Rx Instructions: Last filled 03/09/24 clonazepam 0.5 mg tablet See Rx Instructions .ROUTE .COMPLEX PRN (Reason: Severe anxiety, Insomnia) Rx Instructions: Take 1/2 tab to 1 tab BID twice a day for severe anxiety or insomnia. losartan 25 mg tablet 25 mg PO DAILY Changed oxcarbazepine 300 mg tablet 300 mg PO BID Qty: 60 0RF Rx Instructions: 300 mg orally; No Action (DME) Standard hand held cane See Rx Instructions .Route .[facility] Rx Instructions: to use when ambulating (DME) cane Device See Rx Instructions .Route Qty: 1 0RF Rx Instructions: straight, single legged cane gabapentin 300 mg capsule 300 mg PO TID Qty: 90 0RF Trulicity 1.5 mg/0.5 mL pen injector 1.5 mg subcut QWEEK Qty: 6 1RF phenazopyridine [Pyridium] 100 mg tablet 200 mg PO TID 2 Days Qty: 6 0RF Print Language: Montenegrin
--- NOTE | 2024-04-19 12:53 | PC.NURSE ---
Car stated that his PCP called him and told him he reviewed his EKG and told him that he is not concerned about his EKG. He also told him he reviewed his recent lab results.
--- NOTE | 2024-04-19 14:04 | HO.PHP ---
[facility] staff member reached out to [facility] to schedule Car's appointment through Dr. Ana Maria Bearden. [facility] staff member was able to schedule him an appointment for May 15, 2024 at 1:30 PM.
--- NOTE | 2024-04-20 21:36 | P.PNPSP_ITS ---
Subjective Subjective Date of Service: 04/20/24 Reason For Visit: bipolar Interim History: Patient seen for follow-up, he anticipates discharge form program today. He reports feeling stable, denies any issues, states he is looking forward to discharge, believes he got the tools he needs to manage his stress and declines an extension at [facility] to address his medications. He says he feels well, denies any further dizziness spells or weakness at this time and feels his medication are at a good dose at this time where he is able to maintain stability without aggravating physical problems. On review, during his stay his usual dose of oxcarbazepine (OXC) was titrated from 300mg/600mg to 600 mg BID, which precipitated an episode of lightheadedness and extreme weakness. Patient shared he has been struggling with dizziness episodes for at least the past 2-3 yrs. He has been worked up in past, and referred to neurology, with no clear cause for these episodes. He reported that this time the weakness was new. He was found to be hyponatremic 130 (was at 137 on admission labs only 6 days earlier ), so we lowered dose of oxcarbazepine (OXC) to 300 mg BID and weakness resolved/dizziness gradually improved, however mood worsened. Patient had done well on lithium in past so this was started at 300 mg. Given patient's past medical history and current hyponatremia, further lab work was concerning for SIADH and reviewing Up-To-Date, SIADH should be suspected in any patient with hyponatremia (<135), hypoosmolality (<285) and urine osmolality (>100 mosm/kg), urine sodium usually (>40 mEq/L). In this patient: serum Na 130, serum osmolality 280, urine osmolality 664 mosm/kg, urine sodium 69 mmol/L (=69mEq/L, since 1+charge Na). Even in mild cases of SIADH is often asymptomatic, but likely worsens when sodium drops; patient was informed oxcarbazepine should be eventually tapered off, since it can cause worsening hyponatremia. Furthermore water restriction is often involved in managing SIADH, in which case, remaining on lithium would also not be prudent. I relayed my concerns to patient who was not willing to extend his time at [facility] and at least for now felt he was doing well with lower dose of OXC with low dose lithium. He agrees to follow up with his PCP regarding symptoms and labwork findings supporting possibility that SIADH may be underlying cause of his dizziness episodes. I'm not clear whether these episodes predate his start with OXC treatment, however at some point he should be discontinued from OXC as this is likely lending to hyponatremia, as well as treatment with lithium which only complicates the situation. I recommend he be transitioned off [place], as well as OXC and avoid further treatment with AEDs since many of these can cause hyponatremia (including lamotrigine, carbamazapine, VPA). Gabapentin should also be considered since it is also an AED and could also cause hyponatremia (although theoretically, OXC is more likely to). We had discussed other treatment options, such as Vraylar or Abilify or perhaps other neuroleptic mood stabilizer options that have lower risk for metabolic side effects given PMH:IDDM. Patient was agreeable with me reaching out to his PCP and psych provider regarding these concerns. Medication Compliance: Yes Side effects from medications: Yes (as noted above, Na has improved to 133-134 since lowering dose of OXC) Attending Groups: Yes Review of Systems Acute medical concerns: Yes As noted above Mental Status Exam Mental Status Exam Narrative: Alert, oriented, in no acute distress. Calm, cooperative, engaged. No psychomotor agitation or neurovegetative retardation. Eye contact maintained. Mood stable, affect full range, reactive, without notable lability or irritability. Speech normal. Thought process linear, coherent, goal-directed, future-oriented, denies SI, intention, urge or plan. Denies any aggressive ideation or HI. Denies AH, VH. No paranoia or delusional content elicited. Sensorium clear, cognition grossly intact. Insight and judgment - fair but adequate Diagnostics Vital Signs (24Hr): BMI result Body Mass Index 37.2 Assessment & Plan Assessment & Plan (1) Mood disorder: Status: Acute Code(s): F39 - Unspecified mood [affective] disorder (2) Other impulse disorders: Status: Acute Code(s): F63.89 - Other impulse disorders Assessment and Plan: r/o Intermittent Explosive Disorder otherwise likely related to ADHD (3) History of ADHD: Status: Acute Code(s): Z86.59 - Personal history of other mental and behavioral disorders (4) Hyponatremia: Status: Acute Code(s): E87.1 - Hypo-osmolality and hyponatremia Assessment and Plan: appears to be exacerbated by AEDs, and on background of mild SIADH Plan Discharge from [facility] Patient declined offer to extend stay at [facility] to adjust medications in light of medical issues He has reportedly stabilized on current regime, denies any further physical symptoms (dizziness, LANDIN, weakness, nausea) since OXC lowered continue oxcarbamazapine 300 mg BID continue lithium ER 300 mg qhs continue gabapentin 300 mg TID prn continue clonazepam 0.5 mg qhs prn insomnia continue other regular medications Will fax copy of note and recent labwork to providers Will defer further treatment management to outpatient providers Patient educated on: diagnosis, medication risk/benefits and medical condition Informed Consent: understands Reason for contiued partial hosp. stay Substantial Risk for: stable for discharge Certification I certify that partial hospital treatment is medically necessary due to the symptoms and problems resulting from the patient's mental illness and the failure to treat the patient at the partial hospital level of care would likely result in the patient requiring inpatient psychiatric care which could not be prevented at a less intensive level of care. Total time managing care of this patient today __30__ minutes. Discharge Plan Discharge Attending provider: Demi Yo Medications: New zinc citrate 11 mg tablet,chewable 11 mg PO DAILY Qty: 30 0RF thiamine HCl (vitamin B1) 100 mg tablet 100 mg PO BID Qty: 60 0RF nicotine 7 mg/24 hr patch 24 hour 1 patch transdermal Q24H Qty: 28 0RF lithium carbonate 300 mg tablet extended release 300 mg PO BEDTIME Qty: 30 0RF Continued (DME) Standard hand held cane See Rx Instructions .Route .MEDSUPPLY Rx Instructions: to use when ambulating (DME) cane Device See Rx Instructions .Route Qty: 1 0RF Rx Instructions: straight, single legged cane (DME) FreeStyle Lynne 3 Sensor Device See Rx Instructions .Route Qty: 6 1RF Rx Instructions: As directed to monitor blood sugars alpha lipoic acid 600 mg capsule 600 mg PO Q24H Qty: 90 1RF metformin 500 mg tablet extended release 24 hr 500 mg PO DAILY Qty: 90 1RF omega-3 acid ethyl esters 1 gram capsule 1 cap PO BID Qty: 180 1RF cholecalciferol (vitamin D3) 50 mcg (2,000 unit) capsule 50 mcg PO DAILY 90 Days Qty: 90 1RF aspirin 81 mg tablet,delayed release (DR/EC) 81 mg PO DAILY 90 Days Qty: 90 1RF cyanocobalamin (vitamin B-12) 500 mcg tablet 500 mcg PO DAILY 30 Days Qty: 30 6RF (DME) Dexcom G7 Childhood Development Teacher Misc See Rx Instructions .Route Qty: 1 0RF Rx Instructions: To test blood sugar 4 times per day (DME) Dexcom G7 Sensor Device See Rx Instructions .Route Qty: 3 5RF Rx Instructions: test blood sugar 4 times per day albuterol sulfate 90 mcg/actuation HFA aerosol inhaler 2 puff inhalation Q6H PRN (Reason: shortness of breath or wheezing) 30 Days Qty: 8.5 2RF Rx Instructions: Last filled 03/09/24 gabapentin 300 mg capsule 300 mg PO TID Qty: 90 0RF Trulicity 1.5 mg/0.5 mL pen injector 1.5 mg subcut QWEEK Qty: 6 1RF clonazepam 0.5 mg tablet See Rx Instructions .ROUTE .COMPLEX PRN (Reason: Severe anxiety, Insomnia) Rx Instructions: Take 1/2 tab to 1 tab BID twice a day for severe anxiety or insomnia. losartan 25 mg tablet 25 mg PO DAILY Changed oxcarbazepine 300 mg tablet 300 mg PO BID Qty: 60 0RF Rx Instructions: 300 mg orally; Discontinued phenazopyridine [Pyridium] 100 mg tablet 200 mg PO TID 2 Days Qty: 6 0RF Stand Alone Forms: Patient Portal Discharge page Patient Education: Hyponatremia (ED), Hyponatremia (DC), Mood Disorders (DC), ADHD in Adults (ED), ADHD in Adults (DC), Syndrome of Inappropriate Antidiuretic Hormone Secretion (DC) Print Language: [place]er
== END 2024-04-20 23:59 | disposition home or self-care (01) ==
LOC: HO.PHPA 12:15
PROVIDERS: Visit Provider Psychiatry & Neurology Psychiatry
DX: F39 Unspecified mood [affective] disorder (principal); F63.89 Other impulse disorders; Z86.59 Personal history of other mental and behavioral disorders; Z79.899 Other long term (current) drug therapy
CPT/HCPCS: 80307; 90791; 90853

== ENCOUNTER 2024-05-16 07:46 | Outpatient (REF) | payer OTHER, SELFPAY ==
[2024-05-16 10:08] LABS: MANUAL DIFF FLAG NO
[2024-05-16 10:30] LABS: Basophils Percent Auto 0.3 % (0-2); Eosinophils Absolute Auto 0.1 X10*3/uL (0.0-0.4); Hematocrit 43.2 % (42.0-52.0); Hemoglobin 14.5 g/dl (14.0-18.0); Imm Gran Abs Auto 0.02 X10*3/uL (0.00-0.03); Imm Gran Pct Auto 0.3 % (0.0-0.4); Lymphocytes Absolute Auto 1.1 X10*3/uL (1.2-4.9); Lymphocytes Percent Auto 19.2 % (20-40); Mean Corpuscular HGB Conc 33.6 g/dl (31.0-36.0); Mean Corpuscular Hemoglobin 29.2 pg (27.0-33.0); Mean Corpuscular Volume 87.1 fL (80.0-98.0); Mean Platelet Volume 10.4 fL (9.4-12.4); Monocytes Absolute Auto 0.4 X10*3/uL (0.1-1.2); Monocytes Percent Auto 6.6 % (2-11); Neutrophils Absolute Auto 4.2 x10*3/uL (2.0-8.3); Neutrophils Percent Auto 71.6 % (45-73); Platelet Count 164 X10*3/uL (160-400); Red Blood Count 4.96 X10*6/uL (4.60-5.80); White Blood Count 5.9 X10*3/uL (4.8-10.8)
[2024-05-16 10:57] LABS: Alanine Aminotransferase 45 U/L (0-40); Alkaline Phosphatase 93 U/L (39-117); Anion Gap 11 (12-20); Aspartate Amino Transferase 41 U/L (5-37); Bilirubin Total 0.4 mg/dL (0.0-1.0); Blood Urea Nitrogen 10 mg/dL (9-16); Calcium 9.2 mg/dL (8.4-10.2); Carbon Dioxide 27 mmol/L (22-29); Chloride 106 mmol/L (96-108); Cholesterol 143 mg/dL (<200); Estimated Glomerular Filt Rate > 60; Glucose Fasting 125 mg/dL (60-99); HDL Cholesterol 30 mg/dL (>40); LDL Cholesterol Calculated 64 mg/dL (<100); Potassium 4.3 mmol/L (3.3-5.1); Sodium 140 mmol/L (135-145); Total Protein 7.2 g/dL (6.5-8.0); Triglycerides 247 mg/dL (<150)
[2024-05-16 10:59] LABS: Prostate Specific Antigen Scr 0.23 ng/mL (<0.05-4.0)
[2024-05-16 11:02] LABS: TSH reflex Free T4 1.97 uIU/mL (0.32-4.0)
== END 2024-05-16 07:47 | disposition home or self-care (01) ==
LOC: HO.HMGCLDS 07:46
PROVIDERS: PCP Nurse Practitioner Family; Visit Provider Nurse Practitioner Family
DX: E11.65 Type 2 diabetes mellitus with hyperglycemia (principal); Z79.4 Long term (current) use of insulin; Z12.5 Encounter for screening for malignant neoplasm of prostate
CPT/HCPCS: 36415; 80053; 80061; 83735; 84153; 84443; 85025

== ENCOUNTER 2024-05-23 08:05 | Outpatient (AMB) | payer OTHER, SELFPAY ==
[2024-05-23 08:07] VITALS: BP 138/84; PULSE 70; TEMP 36.6; O2SAT 98; BMI 37.5
--- NOTE | 2024-05-23 08:07 | A.OFFPC_ITS ---
Vital Signs 05/23/24 08:07 Height 6 ft 2 in Weight 292 lb BMI 37.5 BP 138/84 Blood Pressure Location Lt brachial Position Sitting Pulse 70 Pulse Source Pulse Oximeter Temp 97.9 F Temp Source Oral Pulse Oximetry (%) 98 Oxygen Delivery Method Room Air Intake Visit Reasons: Annual PE Intake Note: pt is here for annual exam Gauge Maker Apprentice Required: No Accompanied by: Self / Same As Patient Allergies doxycycline Allergy (Verified 05/23/24 08:07) Itching Medication List - Last Reconciled 05/23/24 by Lázaro Browning FUSION JUNCTURE GRINDER- albuterol sulfate 90 mcg/actuation 2 puffs inhalation Q6H PRN 30 days alpha lipoic acid 600 mg PO Q24H aspirin 81 mg PO DAILY 90 days blood-glucose meter,continuous ([employer] G7 Director Blood Bank) To test blood sugar 4 times per day blood-glucose sensor (Medisseyle Lynne 3 Sensor device) As directed to monitor blood sugars blood-glucose sensor (Dexcom G7 Sensor device) test blood sugar 4 times per day cane straight, single legged cane cholecalciferol (vitamin D3) 50 mcg PO DAILY 90 days clonazepam Take 1/2 tab to 1 tab BID twice a day for severe anxiety or insomnia. cyanocobalamin (vitamin B-12) 500 mcg PO DAILY 30 days dulaglutide (Trulicity) 1.5 mg (0.5 mL) subcut QWEEK gabapentin 400 mg PO TID 30 days lithium carbonate ER 300 mg PO BEDTIME losartan 25 mg PO DAILY metformin ER 500 mg PO DAILY nicotine 1 patch transdermal Q24H omega-3 acid ethyl esters 1 cap PO BID oxcarbazepine 300 mg PO BID [Standard hand held cane to use when ambulating ] thiamine HCl (vitamin B1) 100 mg PO BID zinc citrate 11 mg PO DAILY Tobacco use date assessed: 05/23/24 Dental Screening Dental Screen Date: 05/23/24 Did you have a dental visit in the last 12 months?: Yes Did you have a dental problem in the last 6 months where you did not have access to dental care?: No Was dental information given to patient?: Patient has dentist HPI Annual PE HPI Details History of Present Illness The patient is a 48-year-old male presenting for a routine physical examination. He reports experiencing anxiety and depression for which he is currently in treatment, and denies any suicidal or homicidal ideation. He has a history of urinary issues, including a weak urinary stream and excessive dribbling post- urination, alongside occasional presence of semen at the tip of the penis, which he has been reported while having a BM (intermittent). A digital rectal examination revealed a possibly slightly enlarged and nodular prostate. He has no family history of prostate carcinoma. The patient is diabetic and currently uses diabetic shoes which he finds satisfactory. He also has diabetic neuropathy, with absent sensation tested by monofilament on the left big toe. He acknowledges being morbidly obese and has very flat feet. Gary A1c was in the 5s. fairly well controlled. first degree Av block on ekg, denies any cardiac symptoms, reports he has seen a mold stamper many years ago, was cleared. Labs already drawn, went over with pt, watching liver enzymes Health Maintenance - Advised to continue regular monitoring and self-care for diabetes. - Continues using diabetic shoes to miti gate potential foot complications. - Discussed potential referral to urolog y for prostate evaluation. - Encouraged adherence to mental health treatment regimen for anxiety and depression. Social History - No specific social determinants discus sed in conversation. Review of Systems - Cardiovascular: Denies chest pain. - Respiratory: Denies shortness of breat h. - Gastrointestinal: Denies nausea, vomit ing, constipation, diarrhea, and blood in stool. - Genitourinary: Reports weak stream, dr ibbling after urination, and occasional semen at the tip of penis. Denies changes in orgasm. - Neurological: Denies family history of prostate carcinoma. - Psychiatric: Reports anxiety and depre ssion; denies suicidal or homicidal ideation. Receiving treatment. Physical Exam General: Cooperative, healthy appearing, comfortable, no acute distress and well developed, morbidly obese Orientation: Patient oriented x3 Limitations: No limitations Head: Normal to inspection Ears: Hearing grossly normal bilaterally Nose: Normal external nose present Face and sinus: Normal facial exam Eyes: Appearance normal, both eyes and all related structures Neck: Normal visual inspection and Yes full ROM Respiratory: Normal respiratory effort and able to speak in complete sentences. Clear to auscultation bilaterally Cardiovascular: Regular rate and rhythm. Normal S1 and S2 : prostate was nodular to palpation GI: Normal to inspection. Soft to palpation and nontender Skin: No rashes or lesions noted Neuro: Patient oriented x3, some neuropathy, no sensation with use of monofilament at the left big toe, lack of sensation noted to plantar left foot, intact feet bilat Extremities: Normal to inspection, very flat feet Results Plan - Referral to urology to assess for mary kate gn prostatic hyperplasia and potential underlying issues. - Continue ongoing treatment plan for an xiety and depression. - Advise regular monitoring and manageme nt of diabetes to prevent further complications. - Discuss weight management strategies t o address obesity. - Ensure continued use of diabetic shoes for foot protection and neuropathy management. Patient was informed and verbally consented to the use of an ambient scribe for clinic note documentation during this visit. Discussion Notes I discussed with the patient the findings from today's examination and the importance of addressing his urinary symptoms. A referral to a urologist was advised to further evaluate. We reviewed his current mental health treatment plan which he is following without suicidal or homicidal ideation. The need for ongoing diabetes management was emphasized, and the patient expressed satisfaction with using diabetic shoes for peripheral neuropathy. I highlighted the importance of addressing his obesity to mitigate related health risks. Patient Instructions - Follow up with urology as recommended for prostate evaluation. - Continue medications and therapy for a nxiety and depression. - Maintain diabetes management plan and check blood sugars regularly. - Wear diabetic shoes consistently to he lp protect your feet. - Consider lifestyle modifications for w eight management, including diet and exercise. - Report any new or worsening symptoms p romptly. -referring to cardio for av block [facility] Medical History Syndrome of inappropriate ADH (SIADH) secretion VSD (ventricular septal defect) Laird's palsy VSD (ventricular septal defect) Joint pain Pulmonary granuloma Encephalomalacia with cerebral infarction Stroke Gout Diverticulitis Fatty liver Splenomegaly Hypertriglyceridemia ANAYA on CPAP Mild asthma Ophthalmic migraine Heel spur ADHD Bipolar disorder Anxiety Type 2 diabetes mellitus with diabetic polyneuropathy, with long-term current use of insulin Essential hypertension Hyperlipidemia LDL goal <100 Vitamin D deficiency Obesity due to excess calories BMI 37.0-37.9, adult Type 2 diabetes mellitus with hyperglycemia Surgical History History of foot surgery History of hernia repair History of colectomy Family History Father Diabetes mellitus Mental health disorder Mother HTN (hypertension) Maternal Uncle Diabetes mellitus Substance use disorder Mental health disorder Paternal Grandmother Diabetes mellitus Social History Household Members: Significant Other and Children Housing: House Patient Tobacco Use Status: Former Tobacco user Tobacco use type: Cigarette Cigarettes Per Day: 8 Years Smoked: 25 e-Cigarette/Vaping Use: Currently Using Second Hand Smoke Exposure: No Substance Use Type: Marijuana service: No Current occupational status: disabled Cognitive needs: No Hearing needs: No Vision needs: No Questionnaire PHQ-9 Over the last 2 weeks, how often have you been bothered by any of the following problems? 1. Little interest or pleasure in doing things: nearly every day 2. Feeling down, depressed, or hopeless: nearly every day 3. Trouble falling or staying asleep, or sleeping too much: more than half the days 4. Feeling tired or having little energy: more than half the days 5. Poor appetite or overeating: more than half the days 6. Feeling bad about yourself - or that you are a failure or have let yourself or your family down: more than half the days 7. Trouble concentrating on things, such as reading the newspaper or watching television: more than half the days 8. Moving or speaking so slowly that other people could have noticed. Or the opposite - being so fidgety or restless that you have been moving around a lot more than usual: more than half the days 9. Thoughts that you would be better off or of hurting yourself in some way: more than half the days Total score: 20 Depression Screening Interpretation: Positive (denies any si or HI) Depression Screening Follow-up: Existing condition and In treatment Depression Screening Done: Yes 51829 - PHQ-9 Billing: Yes Source: Developed by Drs. Israel Kiser, Zainab Barajas, Alfredo Yang and colleagues, with an educational florencio from [employer]. Thrive Questionnaire Date Thrive assessed: 05/23/24 I am a: Patient What is your living situation today?: I have a place to live, but I am worried about losing it in the future Within the past 12 months, did the food you bought not last and you didn't have the money to get more?: Sometimes True Within the past 12 months, did you worry whether your food would run out before you got money to buy more?: Sometimes True Do you have trouble paying for medicines?: No Do you have trouble getting transportation to medical appointments?: Yes Do you have trouble paying your heating and electricity bill?: Yes Do you have trouble taking care of your child, family member or friend?: No Do you have trouble with day-to-day activities such as bathing, preparing meals, shopping, managing finances, etc.?: Yes Are you currently unemployed and looking for a job?: No Are you interested in more education?: No Please select the resources that you would like help with: None Currently or been in a relationship where the following occur: I choose not to answer THRIVE Score: 5 AUDIT C Alcohol Use Questionnaire (AUDIT-C) 1. How often do you have a drink containing alcohol?: Monthly or less 2. How many drinks containing alcohol do you have on a typical day when you are drinking?: 1 or 2 3. How often do you have six or more drinks on one occasion?: Never Total Score: 1 Score Reviewed/Action Taken: Yes MANOLO-7 AMB Questionnaire MANOLO-7 Date MANOLO - 7 assessed: 05/23/24 Feeling nervous, anxious, or on edge: 3 = Nearly every day Not being able to stop or control worryin = Nearly every day Worrying too much about different things: 3 = Nearly every day Trouble relaxin = Nearly every day Being so restless that it is hard to sit still: 3 = Nearly every day Becoming easily annoyed or irritable: 3 = Nearly every day Feeling afraid as if something awful might happen: 3 = Nearly every day Total MANOLO-7 score (0-4 normal; 5-9 mild; 10-14 moderate; 15-21 severe): 21 Source: Developed by Drs. Israel Kiser, Zainab Barajas, Alfredo Yang and colleagues, with an educational florencio from [employer]. MANOLO-7 Assessment Billing MANOLO-7 Assessment Tool: MANOLO-7 Assessment 02187 (in treatment, denies any SI or HI) Physical exam (Primary Care) Vital Signs: Last Vital Signs Temp 97.9 F 05/23/24 08:07 Pulse 70 05/23/24 08:07 BP 138/84 05/23/24 08:07 Pulse Ox 98 05/23/24 08:07 Oxygen Delivery Method Room Air 05/23/24 08:07 BMI result Body Mass Index 37.5 Tobacco/Smoking Status: Tobacco use Status Tobacco use date assessed 05/23/24 05/23/24 08:13 Patient Tobacco Use Status Former Tobacco user 05/23/24 08:13 Tobacco use type Cigarette 05/23/24 08:13 e-Cigarette/Vaping Use Currently Using 05/23/24 08:13 PHQ-9: PHQ-9 Score PHQ-9: Total score 20 05/23/24 08:20 Depression Screening Interpretation: Positive (denies any si or HI) Depression Screening Follow-up: Existing condition and In treatment Thrive Assessment: Date of Thrive Assessment Date Thrive assessed 05/23/24 05/23/24 08:13 Currently or been in a relationship where the following occur: I choose not to answer Coding Level of Care Code Est Pt Prev Care 40-64y(45684) Diagnoses Nodular prostate N40.2 Diabetes with neurologic complications E11.49 Type 2 diabetes mellitus with diabetic polyneuropathy, with long-term current use of insulin E11.42; Z79.4 Physical exam Z00.00 First degree AV block I44.0 Additional Codes PHQ-9 - 39542 - PHQ-9 Billing: Yes ([id number]) MANOLO-7 Assessment Billing - MANOLO-7 Assessment Tool: MANOLO-7 Assessment 54764 ([id number]) Assessment & Plan Assessment & Plan (1) Nodular prostate: Code(s): N40.2 - Nodular prostate without lower urinary tract symptoms Category: Medical (2) Diabetes with neurologic complications: Code(s): E11.49 - Type 2 diabetes mellitus with other diabetic neurological complication Category: Medical Plan: . (3) Type 2 diabetes mellitus with diabetic polyneuropathy, with long-term current use of insulin: Code(s): E11.42 - Type 2 diabetes mellitus with diabetic polyneuropathy; Z79.4 - marine oil terminal superintendent (current) use of insulin Category: Medical (4) Physical exam: Code(s): Z00.00 - Encounter for general adult medical examination without abnormal findings Category: Medical (5) First degree AV block: Code(s): I44.0 - Atrioventricular block, first degree Category: Medical Plan . Orders: Orders 2 AMB EKG-In Office Today Z00.00 - Encounter for general adult medical examination without abnormal findings Referrals Cardiology Referral I44.0 - Atrioventricular block, first degree Urology Referral N40.2 - Nodular prostate without lower urinary tract symptoms
== END 2024-05-23 09:19 | disposition home or self-care (01) ==
PROVIDERS: PCP Nurse Practitioner Family; Visit Provider Nurse Practitioner Family
DX: Z00.00 Encounter for general adult medical examination without abnormal findings (principal); E11.49 Type 2 diabetes mellitus with other diabetic neurological complication; E11.42 Type 2 diabetes mellitus with diabetic polyneuropathy; Z79.4 Long term (current) use of insulin; N40.2 Nodular prostate without lower urinary tract symptoms; I44.0 Atrioventricular block, first degree

== ENCOUNTER → 2024-05-23 08:05 | Outpatient (BNVA) | payer OTHER, SELFPAY | PROVIDERS: PCP Nurse Practitioner Family; Visit Provider Nurse Practitioner Family | DX: Z00.00 Encounter for general adult medical examination without abnormal findings (principal); N40.2 Nodular prostate without lower urinary tract symptoms; E11.49 Type 2 diabetes mellitus with other diabetic neurological complication; E11.42 Type 2 diabetes mellitus with diabetic polyneuropathy; I44.0 Atrioventricular block, first degree; Z79.4 Long term (current) use of insulin | CPT/HCPCS: 96127; 99396 ==

== ENCOUNTER 2024-06-13 14:21 | Outpatient (AMB) | payer OTHER, SELFPAY ==
--- NOTE | 2024-06-13 13:59 | A.OFFVIS_ITS ---
Vital Signs 06/13/24 14:01 Height 6 ft 2 in Weight 290 lb BMI 37.2 Intake Visit Reasons: Follow up Intake Note: Patient presents follow up Neuropathy. Labs/EMG/MRI's in chart. Requested Ortho notes Top Lift Trimmer Required: No Allergies doxycycline Allergy (Verified 06/13/24 13:59) Itching Medication List - Last Reconciled 06/13/24 by CONSTANTIN Sidhu albuterol sulfate 90 mcg/actuation 2 puffs inhalation Q6H PRN 30 days alpha lipoic acid 600 mg PO Q24H aspirin 81 mg PO DAILY 90 days blood-glucose meter,continuous (Dexcom G7 Application Support Administrator) To test blood sugar 4 times per day blood-glucose sensor (FreeStyle Lynne 3 Sensor device) As directed to monitor blood sugars blood-glucose sensor (Dexcom G7 Sensor device) test blood sugar 4 times per day blood-glucose sensor (FreeStyle Lynne 3 Plus Sensor device) Test blood sugar 4 times per day, change sensor every 15 days cane straight, single legged cane cholecalciferol (vitamin D3) 50 mcg PO DAILY 90 days clonazepam Take 1/2 tab to 1 tab BID twice a day for severe anxiety or insomnia. cyanocobalamin (vitamin B-12) 500 mcg PO DAILY 30 days dulaglutide (Trulicity) 1.5 mg (0.5 mL) subcut QWEEK gabapentin 400 mg PO TID 30 days galcanezumab-gnlm (Emgality Pen) 240 mg (2 mL) subcut ONCE 30 days lithium carbonate 300 mg PO BID losartan 25 mg PO DAILY metformin ER 500 mg PO DAILY nicotine 1 patch transdermal Q24H omega-3 acid ethyl esters 1 cap PO BID oxcarbazepine 300 mg PO BID [Standard hand held cane to use when ambulating ] thiamine HCl (vitamin B1) 100 mg PO BID zinc citrate 11 mg PO DAILY HPI Comments Details: Ambidextrous (Right handed for writing, left handing for throwing) 48-yr-old male presents for follow-up of dizziness and balance difficulties. 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 Patient was referred for vestibular therapy, however he was sent to a different location than we had requested. The initial evaluation did not reveal BPPV, though he did experience some orthostatic lightheadedness some dizziness. Pt suggest if he may have vestibular migraine. As the Pt location was far from patient's home, he did not continue with PT. He did acknowledge that he has a history of ocular migraine, but never with headache. And states his dizziness is not associated with headache. He is still frequently dizzy, not constant but frequently. During a partial psychiatric stay, he was advised to start vitamin B1 supplement due to deficiency, low dosing, and fluid restriction due to low urine osmolality. Since, his PCP had advised him to be more liberal with his fluid intake. He has not noticed any difference in his dizziness whether he is drinking more less fluids. His lithium dose was increased from 300 mg daily to 300 mg b.i.d.. He is compliant with Trileptal 300 mg b.i.d. Most recent serum sodium level was within normal limits. 24 hour UPEP testing still pending. December 2023 labs showed normal vitamin B6, low vitamin-D at 20, normal folate 5.5, low normal B12 411, elevated homocystine 13.6. Following lab results, patient started on vitamin B12 and vitamin-D supplements, which showed normalization of vitamin-D and vit B12 on follow-up labs in March 2024. He has a noted history of first-degree AV block. States who has previously seen Dr. De Jesus Cardiology, however he is being transferred to [facility] Cardiology. Initial HPI from 12/20/2023: Ambidextrous (Right handed for writing, left handing for throwing) 48-yr-old male presents for new pt evaluation of dizziness and balance difficulties. PMH includes: PFO/ASD - two cribriform defects in the atrial septum in addition to PFO.? 35mm cribriform occluder in PFO, 18mm PFO occluder in small defect. CVA - chronic R MCA infarction.? unclear when this occurred.? RoPE 5. Laird's palsy x's 2. HTN, DM2, ANAYA on PAP tx. bilateral skwed foot deformity,foot pain, diverticulosis. He states he has always been off-balance his entire life. But then the dizziness started ~ 2 yrs ago, which started sometime after he had his 2nd bout of Laird's Palsy (unsure which side). This was 1 yr prior to the PFO closure. The dizziness can feel like head spinning. He can have a sensation like his foot has just slipped out and his body will jerk from under him- similar to what one might feel when one falls asleep, but this can occur when awake and sitting. Either can be triggered by turning his head but also not triggered by anything. Since the Laird's palsy- his eyes will water when he is chewing/salivating. He has seen his eye doctor and was referred to specialist. Has had some tx, offered Botox but told more risk than benefit. He is prone falling in any direction. He has to hold onto the wall or something to keep his balance. He is not sure if he is weak. Can quickly get himself up from the ground. He also notes he has bilateral skewed feets. He has chronic foot pain. He was given a cane recently after [place] the river. In his 20s, he was limping in his 20s d/t the foot pain. He does deep tissue massage for chronic neck and back tightness. He can have shooting neck pain- possibly radiates up from cranio-occipital space. He also BLE neuropathy- hot fire, numbness, or coldness, bilateral mid-foot through toes, which is constant but intensity fluctuates with time of day and med dosing. Feels like he feels the ground when walking He has numbness/tinging in fingers. He has normal headaches at times. He can tremor- not sure exactly when- mostly in hands. He is prone to leg cramps during the day or night. Some occasional ear ringing. No urinary or bowel changes. He is taking 3-4 16 oz bottles of water a day. He is on Trileptal for mood, Meloxicam 15mg, Gabapentin 300mg qam and 600mg qhs, (rarely an extra 300mg q midday), alpha lipoic acid 600mg qd- for the neuropathy. He had vestibular eval- work-up was negative for BPPV. ENT consult did not feel that this dizziness was r/t ENT. Cardiology does not feel this is r/t his heart. His diabtes is well controlled- 5.7%. Initially dx'd w/ DM 20 yrs ago- has not always been well-controlled. He is f/b a therapist and psychiatrist. His father has similar s/s- also has vertigo, diabetes, tremor. He also falls. His son has has similar foot issues Amplatzer PFO occluder- mri conditional to 3 T MRI, [id number], implanted 03/31/2022. [facility] Medical History (Updated 05/25/24 @ 18:31 by MORE Horne) Pes planus of both feet Syndrome of inappropriate ADH (SIADH) secretion VSD (ventricular septal defect) Laird's palsy VSD (ventricular septal defect) Joint pain Pulmonary granuloma Encephalomalacia with cerebral infarction Stroke Gout Diverticulitis Fatty liver Splenomegaly Hypertriglyceridemia ANAYA on CPAP Mild asthma Ophthalmic migraine Heel spur ADHD Bipolar disorder Anxiety Type 2 diabetes mellitus with diabetic polyneuropathy, with long-term current use of insulin Essential hypertension Hyperlipidemia LDL goal <100 Vitamin D deficiency Obesity due to excess calories BMI 37.0-37.9, adult Type 2 diabetes mellitus with hyperglycemia Surgical History History of foot surgery History of hernia repair History of colectomy Family History Father Diabetes mellitus Mental health disorder Mother HTN (hypertension) Maternal Uncle Diabetes mellitus Substance use disorder Mental health disorder Paternal Grandmother Diabetes mellitus Social History Household Members: Significant Other and Children Housing: House Patient Tobacco Use Status: Former Tobacco user Tobacco use type: Cigarette Cigarettes Per Day: 8 Years Smoked: 25 e-Cigarette/Vaping Use: Currently Using Second Hand Smoke Exposure: No Substance Use Type: Marijuana service: No Current occupational status: disabled Cognitive needs: No Hearing needs: No Vision needs: No Physical Exam Vital Signs: BMI result Body Mass Index 37.2 Const General: cooperative and no acute distress Orientation/consciousness: patient oriented x3 Resp Effort & Inspection: normal respiratory effort and able to speak in complete sentences Neuro General: patient oriented x3 Cognition (Neuro): normal cognition Psych Appearance: grossly normal Mental Status: mental status grossly normal Speech and movement: Normal speech and movement present Affect: normal affect Attitude: cooperative Telehealth Telehealth Telehealth Platform: [facility] Location of provider rendering services: practice address Location of patient: address on file Patient Identification confirmed using: Name, : Yes Telehealth method: video Patient verbally consented to treatment: Yes Patient verbally consented to billing insurance company: Yes Patient informed of any privacy concerns related to visit: Yes Minutes spent on Phone/Video with Pt.: 29 Assessment & Plan Assessment & Plan (1) Balance problem: Code(s): R26.89 - Other abnormalities of gait and mobility Category: Medical (2) Ataxic gait: Code(s): R26.0 - Ataxic gait Category: Medical (3) Decreased proprioception of joint of left foot: Code(s): M25.872 - Other specified joint disorders, left ankle and foot Category: Medical (4) Ataxic gait: Code(s): R26.0 - Ataxic gait Category: Medical (5) Decreased proprioception of joint of left foot: Code(s): M25.872 - Other specified joint disorders, left ankle and foot Category: Medical (6) Tremor: Code(s): R25.1 - Tremor, unspecified Category: Medical (7) Sensory motor neuropathy: Code(s): G62.9 - Polyneuropathy, unspecified Category: Medical Plan For dizziness, ataxic gait, balance difficulties, tremor, impaired left foot propriocetion, positive Romberg, pt is advised to undergo: Reviewed interval labs- notable for low vitamin B12 and vitamin-D, continue supplements as ordered. Reviewed BLE EMG/NCS- BLE Moderate to severe chronic axonal sensory motor peripheral neuropathy. Reviewed Brain and C-spine MRI w/wo- no acute findings. Chronic encephalom alacia and cisterns stain right MCA territory of the right temporal lobe and insula. A few foci of T2/FLAIR hyperintensities in white matter, nonspecific, likely reflect chronic small-vessel disease. No cervical cord abnormality, cord compression or enhancement of the cervical spine For peripheral neuropathy: 24 hr UPEP when able. For migraine with aura: Start Emgality 120mg/ml auto-injection: Loading dose: 240mg (2 120mg/ml auto-injections) via subcutaneous injection in 2 different sites). Then 30 days after loading dose, start Maintenance dose: 120mg (120mg/ml autoinjector) subcutaneous injection every month. Important considerations: * Emgality will likely require insurance prior authorization prior to receiving it from the pharmacy. * Potential side effects include allergic reaction and injection site reactions. * Emgality injection training educational video is available to view on [employer] * Store Emgality in the refrigerator in it's original packaging in order to protect from light. * Remove Emgality at least 1 hour prior to taking the injection. * Emgality can be left out of the fridge for?up to 7 days at a temperature not above 86?F. If either of these conditions are exceeded, then Emgality must be thrown away. * Once Emgality has been stored out of refrigeration, do not place it back in the refrigerator. Migraine treatment contraindications: Antidepressants including TCAs in SSRIs due to risk for decompensation of mood disorder. Future considerations: Verapamil if Cardiology agrees. Future considerations- PT, genetics evaluation. Pt seen in c/w Dr Maci Fritz. Will follow-up upon review of above and patient to follow-up in clinic in 3-4 months or sooner prn. Medications: New galcanezumab-gnlm (Emgality Pen) Loading dose: 120 mg subcu injection x2 in alternate sites (total 240 mg). To be followed by maintenance dose of 120 mg subcu q.month. 240 mg (2 mL) subcut ONCE 2 mL 0RF 30 days Refilled thiamine HCl (vitamin B1) 100 mg PO BID 60 tabs 6RF Coding Level of Care Code Tele Est Pt Level 4 (47989) Diagnoses Balance problem R26.89 Ataxic gait R26.0 Decreased proprioception of joint of left foot M25.872 Tremor R25.1 Sensory motor neuropathy G62.9
[2024-06-13 14:01] VITALS: BMI 37.2
== END 2024-06-20 08:48 | disposition home or self-care (01) ==
LOC: HO.HSMS 14:22
PROVIDERS: PCP Nurse Practitioner Family; Visit Provider Nurse Practitioner Family
DX: R26.89 Other abnormalities of gait and mobility (principal); R26.0 Ataxic gait; M25.872 Other specified joint disorders, left ankle and foot; R25.1 Tremor, unspecified; G62.9 Polyneuropathy, unspecified
CPT/HCPCS: 99214

== ENCOUNTER → 2024-06-13 14:21 | Outpatient (BNVA) | payer OTHER, SELFPAY | PROVIDERS: PCP Nurse Practitioner Family; Visit Provider Nurse Practitioner Family ==

== ENCOUNTER 2024-07-18 10:41 | Outpatient (AMB) | payer OTHER, SELFPAY ==
--- NOTE | 2024-07-18 10:48 | MHC.OFFVIS ---
Intake Visit Reasons: Nodular prostate/lower urinary tract symptoms Intake Note: Patient presents today for nodular prostate Urology Medications: none Blood Thinner: aspirin PVR: 21ml's Water [employer] Systems Supervisor Required: No Accompanied by: Self / Same As Patient Allergies doxycycline Allergy (Verified 07/18/24 16:52) Itching Medication List - Last Reconciled 07/18/24 by CONSTANTIN Haji- albuterol sulfate 90 mcg/actuation 2 puffs inhalation Q6H PRN 30 days alpha lipoic acid 600 mg PO Q24H aspirin 81 mg PO DAILY 90 days blood-glucose sensor (FreeStyle Lynne 3 Sensor device) As directed to monitor blood sugars blood-glucose sensor (Dexcom G7 Sensor device) test blood sugar 4 times per day blood-glucose sensor (FreeStyle Lynne 3 Plus Sensor device) Test blood sugar 4 times per day, change sensor every 15 days blood-glucose,furniture finisher,cont (Dexcom G7 Air Conditioning Service Technician) To test blood sugar 4 times per day cane straight, single legged cane cholecalciferol (vitamin D3) 50 mcg PO DAILY 90 days clonazepam Take 1/2 tab to 1 tab BID twice a day for severe anxiety or insomnia. cyanocobalamin (vitamin B-12) 500 mcg PO DAILY 30 days dulaglutide (Trulicity) 1.5 mg (0.5 mL) subcut QWEEK gabapentin 400 mg PO TID 30 days galcanezumab-gnlm (Emgality Pen) 120 mg subcut ONCE 30 days lithium carbonate 300 mg PO BID losartan 25 mg PO DAILY metformin ER 500 mg PO DAILY omega-3 acid ethyl esters 1 cap PO BID oxcarbazepine 300 mg PO BID [Standard hand held cane to use when ambulating ] tamsulosin 0.4 mg PO BEDTIME 30 days thiamine HCl (vitamin B1) 100 mg PO BID zinc citrate 11 mg PO DAILY HPI Comments Details: Car is a 49-year-old male patient of Dr. Banks. He has a past medical history of ventricular septal defect, Laird's palsy, stroke, gout, diverticulitis, fatty liver, splenomegaly, ANAYA on CPAP, mild asthma, ADHD, bipolar disorder, anxiety, type 2 diabetes, hyperlipidemia, obesity, and vitamin-D deficiency. He presents to the office today for follow-up. In discussion with the patient today he reports having seeked emergency room care multiple times last year for ongoing episodes of pain he had been experiencing at which time recommendations were made for urology referral for further assessment evaluation. In review of patient's chart it appears patient presented to the ER earlier this year for urinary difficulty he had been experiencing. He had also been experiencing abdominal discomfort. A CT was ordered and performed and these results were reviewed and communicated with the patient today. 04/29 no acute intra-abdominal process seen. Colonic diverticulosis without diverticulitis. Mild constipation. No radiopaque urolithiasis or hydroureteronephrosis noted. Patient with a previous history of following up with Dr. Tena in the past for scrotal discomfort however denies this to be an issue at this time. He does continue to report urinary hesitancy and nocturia. In office urinalysis results reviewed with the patient today. PVR 21 mL. In review of patient's chart it appears PSA 05/30 0.2. When asked patient denies any known family history of prostate cancer. He otherwise denies incontinence, hematuria, dysuria, foul smelling urine, flank pain, fever, and or chills. We discussed at length potential causes of lower urinary tract symptoms patient was experiencing as well as further treatment options and risks and benefits of these treatment options. All questions were answered. He otherwise offers no other issues or concerns at this time. Plan To address benign prostatic hyperplasia and associated urinary symptoms, I recommended initiating treatment with Tamsulosin. This alpha-adrenergic tenzin aims to enhance urinary flow. The patient was informed of its hypotensive effects and proper administration timing to mitigate side effects. Past kidney stones and cyst management should follow if symptoms persist, though recent scans show normal findings. With a low PSA, malignancy concerns are minimal. Patient-reported symptom relief will guide further modifications to the therapeutic regimen. Patient was informed and verbally consented to the use of an ambient scribe for clinic note documentation during this visit. Discussion Notes I discussed the management of urinary symptoms related to benign prostatic hyperplasia, particularly emphasizing Tamsulosin as a preferred treatment choice due to its efficacy in relaxing bladder and prostate tissue. The importance of watching for medication effects, adjusting strategies as needed, and safety in its nocturnal administration was detailed. Anticipatory guidance included common side effects like dizziness. Considering imaging results, no current interventions for kidney stones or cysts were deemed necessary. The patient consented to the treatment plan after discussing potential benefits, side effects, and alternatives. [facility] Medical History Pes planus of both feet Syndrome of inappropriate ADH (SIADH) secretion VSD (ventricular septal defect) Laird's palsy VSD (ventricular septal defect) Joint pain Pulmonary granuloma Encephalomalacia with cerebral infarction Stroke Gout Diverticulitis Fatty liver Splenomegaly Hypertriglyceridemia ANAYA on CPAP Mild asthma Ophthalmic migraine Heel spur ADHD Bipolar disorder Anxiety Type 2 diabetes mellitus with diabetic polyneuropathy, with long-term current use of insulin Essential hypertension Hyperlipidemia LDL goal <100 Vitamin D deficiency Obesity due to excess calories BMI 37.0-37.9, adult Type 2 diabetes mellitus with hyperglycemia Surgical History History of foot surgery History of hernia repair History of colectomy Family History Father Diabetes mellitus Mental health disorder Mother HTN (hypertension) Maternal Uncle Diabetes mellitus Substance use disorder Mental health disorder Paternal Grandmother Diabetes mellitus Social History Household Members: Significant Other and Children Housing: House Patient Tobacco Use Status: Former Tobacco user Tobacco use type: Cigarette Cigarettes Per Day: 8 Years Smoked: 25 e-Cigarette/Vaping Use: Currently Using Second Hand Smoke Exposure: No Substance Use Type: Marijuana service: No Current occupational status: disabled Cognitive needs: No Hearing needs: No Vision needs: No Review of Systems Const Reports no additional complaints Eyes Reports no additional complaints ENT Reports no additional complaints Card Reports as per HPI Resp Reports as per HPI GI Reports as per HPI Reports as per HPI Musc Reports no additional complaints Neuro Reports as per HPI Psych Reports as per HPI Endo Reports as per HPI Maycol/Lymph Reports no additional complaints Aller/Immun Reports no additional complaints Physical Exam Const General: cooperative, healthy appearing, comfortable, no acute distress, well developed, alert and awake Nutritional Appearance: overweight Orientation/consciousness: patient oriented x3 Limitations: no limitations HEENT Head: Yes normal to inspection, Yes normocephalic and Yes atraumatic Ears: hearing grossly normal bilaterally Eyes General: appearance normal, both eyes and all related structures Neck Neck: Yes normal visual inspection and Yes trachea midline Chest Chest palpation & inspection: normal inspection of the chest Resp Effort & Inspection: normal respiratory effort and able to speak in complete sentences Cardio Rate: regular rate GI Inspection: Yes normal to inspection Other: as per HPI General: Yes no CVA tenderness Back/Spine/Pelvis Back: no CVA tenderness Skin General skin exam: no rashes or lesions noted Neuro General: patient oriented x3 Extrem General: Yes normal to inspection Psych Appearance: grossly normal and well kempt Mental Status: mental status grossly normal Speech and movement: Normal speech and movement present and Clear speech present Affect: normal affect Attitude: cooperative Thought process: Normal thought process present Thought content: Normal thought content present Insight: Fair insight present (Psych) Judgement: Fair judgement present (Psych) Office Procedures Post Void Residual Post Residual Void Post Void Residual (PVR): 21 [id number]-[id number] Void Residual by ultrasound Results AMB Urinalysis, Automated UA Leukoctes 0 Elizabeth/uL Last Edit by [email or web address] on 07/18/24 11:55 UA Nitrite Last Edit by [email or web address] on 07/18/24 11:55 UA Urobilinogen 0.2 mg/dL Last Edit by [email or web address] on 07/18/24 11:55 UA Protein 15 mg/dL Last Edit by [email or web address] on 07/18/24 11:55 UA pH 6.0 Last Edit by [email or web address] on 07/18/24 11:55 UA Blood 0 Geoffrey/uL Last Edit by [email or web address] on 07/18/24 11:55 UA Specific Alma 1.020 Last Edit by [email or web address] on 07/18/24 11:55 UA Ketone Last Edit by [email or web address] on 07/18/24 11:55 UA Bilirubin 1 mg/dL Last Edit by [email or web address] on 07/18/24 11:55 UA Glucose 0 mg/dL Last Edit by [email or web address] on 07/18/24 11:55 Results Reviewed Results Reviewed: Laboratory Last Values Urine pH (Auto) 6.0 07/18/24 11:53 Specific [place]ma (Auto) 1.020 07/18/24 11:53 Urine Protein (Auto) 15 mg/dL 07/18/24 11:53 Glucose (UA)(Auto) 0 mg/dL 07/18/24 11:53 Urine Blood (Auto) 0 Geoffrey/uL 07/18/24 11:53 Urine Bilirubin (Auto) 1 mg/dL 07/18/24 11:53 Urine Urobilinogen (Auto) 0.2 mg/dL 07/18/24 11:53 Leukocyte Esterase (Auto) 0 Elizabeth/uL 07/18/24 11:53 Date of Service: 04/14/24 Procedure(s): CT abdomen pelvis wo IV con FINDINGS: LUNG BASES: The visualized lung bases are unremarkable. LIVER, GALLBLADDER, AND BILIARY TREE: The liver is normal in size, shape, and attenuation. No focal hepatic lesion or biliary ductal dilatation is present. The gallbladder is unremarkable with no evidence of radiopaque gallstones, gallbladder wall thickening, or obvious pericholecystic inflammatory changes. PANCREAS: Unremarkable. SPLEEN: Unremarkable. ADRENAL GLANDS: Unremarkable. KIDNEYS AND URETERS: The kidneys are normal in size, shape, and attenuation. No hydronephrosis, hydroureter, or calculi seen. Mild bilateral perinephric stranding is noted. BLADDER: Unremarkable. GASTROINTESTINAL TRACT: There is scattered stool, diverticula and gas seen throughout the colon without distention. Postsurgical changes are seen in the proximal sigmoid colon with widely patent anastomosis.. The small bowel loops are normal caliber. There is no evidence of distention ABDOMINAL WALL: There is previous anterior abdominal wall hernia repair with mesh from midabdomen to the lower pelvis. A prominent left inguinal canal containing fat is noted similar to previous study. LYMPH NODES: Normal. VASCULAR: Unremarkable. PELVIC VISCERA: Unremarkable. OSSEOUS STRUCTURES: Grade 1 anterolisthesis L5 over S1 with L5-S1 degenerative disc changes. No aggressive lytic or sclerotic process seen. IMPRESSION: No acute intra-abdominal process seen. Previous sigmoid colon surgery with widely patent anastomotic segment. Colonic diverticulosis without diverticulitis. Mild constipation. No radiopaque urolith or hydroureteronephrosis. No major change compared to previous study 12/15/2023. Fleischner guidelines were followed. Assessment & Plan Assessment & Plan (1) History of urinary hesitancy: Code(s): Z87.898 - Personal history of other specified conditions Category: Medical (2) Nocturia: Code(s): R35.1 - Nocturia Category: Medical Plan In office urinalysis results reviewed with the patient today; as noted above. PVR [address] results reviewed with the patient today; as noted above. Most recent PSA results reviewed with the patient today; as noted above. We discussed at length potential causes of lower urinary tract symptoms patient was experiencing as well as further treatment options and risks and benefits of these treatment options. Start Flomax as discussed and prescribed. We discussed importance of limiting fluids 2-3 hours prior to bed to decrease episodes of nocturia. We discussed bladder triggers/irritants. We discussed attempting to sit when voiding to relax pelvis to assist with urinary hesitancy. Follow-up in 1-3 months with PVR; or sooner with any issues, concerns, and or questions. Orders: Orders AMB Urinalysis Automated Today Z13.9 - Encounter for screening, unspecified AMB Post Void Residual by ultrasound Today Z87.898 - Personal history of other specified conditions Medications: New tamsulosin 0.4 mg PO BEDTIME 30 days 30 caps 3RF N40.1 - Benign prostatic hyperplasia with lower urinary tract symptoms, R35.1 - Nocturia Patient Instructions: The patient had an opportunity to ask questions regarding the treatment plan. All questions were answered. Physical exam, labs, and imaging were discussed and reviewed in detail. As well as risks, benefits, and discussion of treatment choices. No major barriers to understanding were identified. The patient expressed understanding and agreement with the above treatment plan. The patient was made aware they should contact our office by phone for worsening of their current condition, the appearance of new symptoms, or with any questions or concerns. Compliance is encouraged with any medications and follow up testing that is ordered. It is a privilege to be allowed the opportunity to participate in? your urological care.? Again, if you have any questions or concerns If you have any questions or concerns please do not hesitate to contact me. The office is [phone]. This note is constructed using voice recognition software. While every effort has been made to ensure accuracy transcriptionist errors may have been included. Yours sincerely, MORE Haji Coding Level of Care Code Est Pt Level 4 (30952) Diagnoses History of urinary hesitancy Z87.898 Nocturia R35.1 CPT Codes Post Residual Void - PVR CPT Code: 97968-Elyl Void Residual by ultrasound ([id number])
== END 2024-07-18 11:24 | disposition home or self-care (01) ==
LOC: HO.HUSH 10:41
PROVIDERS: PCP Nurse Practitioner Family; Visit Provider Nurse Practitioner Family
DX: Z87.898 Personal history of other specified conditions (principal); R35.1 Nocturia; Z13.9 Encounter for screening, unspecified
CPT/HCPCS: 99214

== ENCOUNTER → 2024-07-18 10:41 | Outpatient (BNVA) | payer OTHER, SELFPAY | PROVIDERS: PCP Nurse Practitioner Family; Visit Provider Nurse Practitioner Family | DX: R35.1 Nocturia (principal); Z87.898 Personal history of other specified conditions | CPT/HCPCS: 51798; 81003; 99212 ==

== ENCOUNTER 2024-08-10 12:10 | Outpatient (AMB) | payer OTHER, SELFPAY ==
--- NOTE | 2024-08-10 12:19 | A.OFFVIS_ITS ---
Vital Signs 08/10/24 12:20 Height 6 ft 2 in Weight 296 lb BMI 38.0 BP 156/74 H Blood Pressure Location Lt brachial Position Sitting Pulse 64 Pulse Oximetry (%) 97 Oxygen Delivery Method Room Air Intake Visit Reasons: colo screening colonoscopy priti lopez 07/29/18 Intake Note: Patient new consult for 3rd pre colonoscopy. Patient cc: abdominal pain due to diverticulitis or hernia, and also discomfort on his lower abdominal area and constipation with blood on and off. Welder Gas Automatic Required: No Accompanied by: Self / Same As Patient Allergies doxycycline Allergy (Verified 08/10/24 12:19) Itching Medication List - Last Reconciled 08/10/24 by Roseann Briseno CNP albuterol sulfate 90 mcg/actuation 2 puffs inhalation Q6H PRN 30 days alpha lipoic acid 600 mg PO Q24H aspirin 81 mg PO DAILY 90 days blood-glucose sensor (FreeStyle Lynne 3 Sensor device) As directed to monitor blood sugars blood-glucose sensor (Dexcom G7 Sensor device) test blood sugar 4 times per day blood-glucose sensor (FreeStyle Lynne 3 Plus Sensor device) Test blood sugar 4 times per day, change sensor every 15 days blood-glucose,gasket inspector,cont (Dexcom G7 Freelance Recruiter) To test blood sugar 4 times per day cane straight, single legged cane cholecalciferol (vitamin D3) 50 mcg PO DAILY 90 days clonazepam Take 1/2 tab to 1 tab BID twice a day for severe anxiety or insomnia. cyanocobalamin (vitamin B-12) 500 mcg PO DAILY 30 days dulaglutide (Trulicity) 1.5 mg (0.5 mL) subcut QWEEK gabapentin 400 mg PO TID 30 days galcanezumab-gnlm (Emgality Pen) 120 mg subcut ONCE 30 days ibuprofen 600 mg PO Q8H PRN lithium carbonate 300 mg PO BID losartan 25 mg PO DAILY metformin ER 500 mg PO DAILY omega-3 acid ethyl esters 1 cap PO BID oxcarbazepine 300 mg PO BID [Standard hand held cane to use when ambulating ] tamsulosin 0.4 mg PO BEDTIME 30 days thiamine HCl (vitamin B1) 100 mg PO BID zinc citrate 11 mg PO DAILY HPI HPI colo screening colonoscopy priti lopez 07/29/18: Details: Patient is a 49-year-old male with PMH of recurrent diverticulitis colitis with abscess s/p sigmoid colectomy 2007, bipolar, anxiety, hypertension, hyperlipidemia, ANAYA, asthma, obesity, and DMII. He was referred by PCP for pre colonoscopy screening Pt is here today for abdominal pain, re-screening following previous colonoscopy and endoscopy. Somewhat challenging HPI, as patient did not agree with the amount of questioning from provider. However, we were able to come to mutual understanding to complete visit without further frustration. The patient presents with abdominal pain that has been ongoing for a couple of weeks. The pain is located in the lower abdomen and is described as achy. The pain is provoked by leaning forward and appears to come and go. The patient has been experiencing constipation, with bowel movements occurring approximately twice a week, varying between very hard and soft stools, and recent episodes of bleeding with stool, noted as both bright red and dark red. The patient also reports nausea, loss of appetite, and occasional heartburn. The heartburn has been experienced twice in the past two weeks with no relief after pepto bismol. Patient denies: vomiting, appetite changes, regurgitation,dysphasia, unintentional wt loss, or melena/hematochezia. He has a regular follow-up with Cardiology scheduled for September 2024 Social hx: - Diet: Consumes pizza, black coffee (2 cups for liver health), aware of certain dietary triggers. - Alcohol/Tobacco/Drug Use: Stopped alcohol consumption for four years due to concerns about liver damage. Former smoker, cessation January 2024 but currently vapes. No use of recreational drugs - Occupation: Not stated. -family hx as below -denies personal hx of CA -tolerated anesthesia in the past without difficulty. FOR[facility], [facility] Medical History (Updated 08/10/24 @ 16:09 by Roseann Briseno CNP) Acid reflux Diverticulosis Abnormal lung sounds Pes planus of both feet Syndrome of inappropriate ADH (SIADH) secretion VSD (ventricular septal defect) Laird's palsy VSD (ventricular septal defect) Joint pain Pulmonary granuloma Encephalomalacia with cerebral infarction Stroke Gout Diverticulitis Fatty liver Splenomegaly Hypertriglyceridemia ANAYA on CPAP Mild asthma Ophthalmic migraine Heel spur ADHD Bipolar disorder Anxiety Type 2 diabetes mellitus with diabetic polyneuropathy, with long-term current use of insulin Essential hypertension Hyperlipidemia LDL goal <100 Vitamin D deficiency Obesity due to excess calories BMI 37.0-37.9, adult Type 2 diabetes mellitus with hyperglycemia Surgical History History of foot surgery History of hernia repair History of colectomy Family History (Updated 08/10/24 @ 16:04 by Roseann Briseno CNP) Father Diabetes mellitus Mental health disorder Mother HTN (hypertension) Maternal Uncle Diabetes mellitus Substance use disorder Mental health disorder Paternal Grandmother Diabetes mellitus Paternal Grandfather Stomach cancer Social History Household Members: Significant Other and Children Housing: House Patient Tobacco Use Status: Former Tobacco user Tobacco use type: Cigarette Cigarettes Per Day: 8 Years Smoked: 25 e-Cigarette/Vaping Use: Currently Using Second Hand Smoke Exposure: No Substance Use Type: Marijuana service: No Current occupational status: disabled Cognitive needs: No Hearing needs: No Vision needs: No Physical Exam Vital Signs: Last Vital Signs Pulse 64 08/10/24 12:20 BP 156/74 H 08/10/24 12:20 Pulse Ox 97 08/10/24 12:20 Oxygen Delivery Method Room Air 08/10/24 12:20 BMI result Body Mass Index 38.0 Const General: healthy appearing, no acute distress and well developed Nutritional Appearance: obese Orientation/consciousness: patient oriented x3 HEENT Head: Yes normal to inspection, Yes normocephalic and Yes atraumatic Face and sinus: Yes normal facial exam Eyes General: appearance normal, both eyes and all related structures Neck Neck: Yes normal visual inspection Resp Effort & Inspection: normal respiratory effort, able to speak in complete sentences, no tracheal deviation and symmetric chest movement Auscultation: crackles diffuse Cardio Jugular venous distension: no JVD Rate: regular rate Rhythm: regular rhythm Heart sounds: S1 normal heart sound present, S2 normal heart sound present, no gallops and no murmurs GI Inspection: Yes normal to inspection, No distended, Yes obesity and Yes visible herniation (c/w recti diastasis) Palpation (GI): Soft to palpation, not firm, Tenderness to palpation present (GI) in the LLQ and in the RLQ and No hepatosplenomegaly present Auscultation: normal bowel sounds Neuro General: patient oriented x3 Gait exam (Neuro): Normal gait present Psych Appearance: grossly normal Mental Status: mental status grossly normal Speech and movement: Normal speech and movement present Affect: Other affect and mood findings present (Anxious) Attitude: Guarded attititude/behavior present Thought process: Normal thought process present Thought content: Normal thought content present Insight: Good insight present (Psych) Judgement: Good judgement present (Psych) Results Reviewed Results Reviewed: Procedure Description: EGd with biopsies Colonoscopy till cecum with biopsies, polypectomy with a snare and submucosal injection Surgeon(s): RAMÍREZ LOPEZ - FLEXIBLE TRANSORAL UPPER GASTROINTESTINAL ENDOSCOPY AND COLONOSCOPY PROCEDURE NOTE UPPER ENDOSCOPY Procedure: The patient was placed in the left lateral decubitis position and pre-procedure medications were administered and a bite block was placed. The endoscope was inserted into the mouth and advanced under direct vision to the third part of duodenum. A careful inspection was made as the upper endoscope was withdrawn including a retroflexed examination of the proximal stomach; Findings and interventions are described below. Findings: Larynx: Normal Esophagus: GE junction at 40 cms. Focal esophagitis at GE junction with a single 1 cms erosion. No Cage?s noted. Stomach: Diffuse gastric erythema with nodular appearing mucosa in the gastric antrum with multiple erosions (containing small amounts of heme) in the antrum/pre-pyloric area. Biopsies were obtained. Grade 2 flap valve on retroflexed examination of the cardia. Duodenum: Normal bulb and descending duodenum. Biopsies obtained from third part of duodenum to check for celiac sprue Intervention: Biopsies as noted above Colonoscopy Instrument: Olympus PCF H 180AL variable stiffness pediatric colonoscope Monitoring: Vital signs and clinical assessment, continuous EKG monitoring, Pulse oximetry, Carbon Dioxide monitoring and blood pressure monitoring were done throughout the procedure. Colon withdrawl time was 30 minutes. Procedure: The patient was placed in the left lateral decubitis position and pre-procedure medications were administered. After a digital rectal examination of the ano-rectum, the video colonoscope was inserted into the rectum and advanced through the colon to the cecum. The colonoscope was slowly withdrawn in a retrograde panoramic fashion and the colon mucosa was carefully examined including a retroflexed view of the rectum. Findings and interventions are described below. Procedure Difficulty: Without difficulty Findings: Terminal Ileum ? Distal 10 cms was examined and appeared normal Cecum ? Normal Ascending Colon ? Moderate diverticulosis Transverse Colon - Moderate diverticulosis Descending Colon ? Moderate diverticulosis Sigmoid Colon ? A 9-10 mm sessile polyp removed with a hot snare. A 2nd 2 cms sessile polyp at 25 cms removed with hot snare. Moderate diverticulosis. Rectum ? Normal Anorectum - Moderate internal hemorrhoids Colon preparation: Good after copious flushing and suctioning Impression and Post Procedure Diagnosis: Endoscopy Findings: LARYNX: Normal ESOPHAGUS: Focal esophagitis at GE junction STOMACH: Nodular gastritis with erosions - patient denied NSAID use. DUODENUM: Normal Colonoscopy Findings: Normal TI. Two polyps removed Random biopsies were obtained to check for microscopic colitis Moderate diverticulosis seen in the entire colon Moderate hemorrhoids on retroflexed exam. Plan: Await pathology results Start ranitidine 150 mg PO twice daily for GERD. Repeat Colonoscopy interval based on path results - if sigmoid colon at 25 cms is adenomatous, repeat flexible sigmoidoscopy with colon prep in 6 months to check polypectomy site. And colonoscopy in 3 years if polyps are adenomatous and 10 years if polyps are hyperplastic. Above findings were reviewed with the patient and GERD, colon polyps and diverticulosis handouts were provided. PATHOLOGY Small bowel, biopsy: Duodenum mucosa with no significant histopathology stomach, biopsy: Mild chronic, inactive gastritis, no H pylori colon, random, biopsy: Colonic mucosa within normal limits, no histologic evidence of microscopic colitis Colon, sigmoid polyp, polypectomy: hyperplastic polyp Colon, sigmoid polyp at 25 cm, polypectomy, inflammatory polyp. pepcid 1-2 as needed EGD lifestyle CXR Assessment & Plan Assessment & Plan (1) Screening for colon cancer: Comment: July 2018-sigmoid hyperplastic polyp, inflammatory polyp at 25 cm Code(s): Z12.11 - Encounter for screening for malignant neoplasm of colon Category: Medical Plan: Due for 5 year re-call secondary to 9-10 mm hyperplastic polyp in the sigmoid on 07/2018 colonoscopy. Reviewed prep and procedure expectations. He understands to hold Trulicity and aspirin 7 days before procedure. He will also hold metformin the day of procedure. Prep Rx'd to preferred pharmacy. (2) Abdominal pain: Comment: [id number] sigmoid colectomy for management of recurrent diverticulitis colitis with abscess Code(s): R10.9 - Unspecified abdominal pain Category: Medical Qualifiers: Abdominal location: lower abdomen, unspecified Qualified Code(s): R10.30 - Lower abdominal pain, unspecified Plan: as below (3) Acid reflux: Code(s): K21.9 - Gastro-esophageal reflux disease without esophagitis Category: Medical Qualifiers: Esophagitis bleeding: without hemorrhage Esophagitis presence: with esophagitis Qualified Code(s): K21.00 - Gastro-esophageal reflux disease with esophagitis, without bleeding Plan: as below Plan Diagnostic Tests - Order colonoscopy for standard screening and to assess causes of gastrointestinal bleeding. - Order endoscopy to evaluate for recurrent esophagitis and acid reflux. - Order chest X-ray to investigate crackles heard in lungs. - Order CT scan of abdomen with oral contrast to evaluate abdominal pain further. - Order labs including renal function tests for CT scan preparation, anemia panel, and white blood cell count to check for infection. Medications - Pepcid (famotidine) as needed for acid reflux. Referrals - Consider referral to a securities counselor based on chest X-ray results if abnormal. - Coordination with open die inspector for procedure clearance. Follow-up - Follow up in 6 weeks to review test results and reassess symptoms. Time: I spent a total of 60 minutes on the date of encounter which includes: Preparing to see the patient (reviewed previous documentation, test results and medical history) Performing a medically appropriate exam and/or evaluation Ordering medications, tests, and procedures Documenting clinical information in the health record Orders: Orders Comprehensive Met. Panel Today R10.30 - Lower abdominal pain, unspecified CT abdomen pelvis w IV con Today K57.90 - Diverticulosis of intestine, part unspecified, without perforation or abscess without bleeding, R10.30 - Lower abdominal pain, unspecified Complete Blood Count no Diff Today R10.30 - Lower abdominal pain, unspecified XR chest 2V Today R09.89 - Other specified symptoms and signs involving the circulatory and respiratory systems Medications: New famotidine Take one tablet twice a day as needed for acid reflux 20 mg PO BID PRN 90 tabs 1RF GERD Coding Level of Care Code New Pt New Pt Level 5 (00436) Patient Type New Diagnoses Screening for colon cancer Z12.11 Lower abdominal pain R10.30 Abdominal location: lower abdomen, unspecified Gastroesophageal reflux disease with esophagitis without hemorrhage K21.00 Esophagitis bleeding: without hemorrhage Esophagitis presence: with esophagitis
[2024-08-10 12:20] VITALS: BP 156/74; PULSE 64; O2SAT 97; BMI 38.0
== END 2024-08-10 13:22 | disposition home or self-care (01) ==
LOC: HO.HGI 12:11
PROVIDERS: PCP Nurse Practitioner Family; Visit Provider Nurse Practitioner Family
DX: R10.30 Lower abdominal pain, unspecified (principal); K21.00 Gastro-esophageal reflux disease with esophagitis, without bleeding; Z12.11 Encounter for screening for malignant neoplasm of colon
CPT/HCPCS: 99203

== ENCOUNTER → 2024-08-10 12:10 | Outpatient (BNVA) | payer OTHER, SELFPAY | PROVIDERS: PCP Nurse Practitioner Family; Visit Provider Nurse Practitioner Family | DX: Z12.11 Encounter for screening for malignant neoplasm of colon (principal); K21.00 Gastro-esophageal reflux disease with esophagitis, without bleeding; R10.30 Lower abdominal pain, unspecified | CPT/HCPCS: 99202 ==

== ENCOUNTER 2024-08-25 11:09 | Outpatient (REF) | payer OTHER, SELFPAY ==
--- NOTE | ~2024-08-25 | XR_ITS ---
EXAMINATION: XR CHEST CLINICAL INFORMATION: R09.89 - Other specified symptoms and signs involving the circulatory an... COMPARISON: None available. TECHNIQUE: 2 views of the chest were obtained. FINDINGS: The cardiac, hilar, and mediastinal contours are normal. There is an atrial septal baffle noted. The lungs are clear bilaterally. There is no pneumothorax or pleural effusion. There is no focal osseous or soft tissue abnormality. XR/XR chest 2V IMPRESSION: No active pulmonary disease. Atrial septal baffle in place. Electronically signed by: Julio Churchill MD 08/25/2024 11:36 AM EDT
[2024-08-25 13:17] LABS: MANUAL DIFF FLAG NO
[2024-08-25 13:38] LABS: Appearance Urine Clear; Color Urine Yellow; Glucose Urine UA Negative (Negative); Leukocyte Esterase Urine Negative (Negative); Nitrite Urine Negative (Negative); PH 5.5 (5.0-9.0); Urine Blood Negative (Negative); Urine Ketones Trace mg/dL (Negative); Urine Protein Negative (Neg-Trace)
[2024-08-25 13:40] LABS: Basophils Percent Auto 0.3 % (0-2); Eosinophils Absolute Auto 0.2 X10*3/uL (0.0-0.4); Eosinophils Percent Auto 2.9 % (0-4); Imm Gran Abs Auto 0.03 X10*3/uL (0.00-0.03); Imm Gran Pct Auto 0.5 % (0.0-0.4); Lymphocytes Absolute Auto 1.3 X10*3/uL (1.2-4.9); Lymphocytes Percent Auto 21.4 % (20-40); Mean Corpuscular HGB Conc 34.1 g/dl (31.0-36.0); Mean Corpuscular Hemoglobin 29.3 pg (27.0-33.0); Mean Corpuscular Volume 85.9 fL (80.0-98.0); Mean Platelet Volume 10.5 fL (9.4-12.4); Monocytes Absolute Auto 0.4 X10*3/uL (0.1-1.2); Monocytes Percent Auto 7.2 % (2-11); Neutrophils Percent Auto 67.7 % (45-73); Platelet Count 162 X10*3/uL (160-400); Red Blood Count 5.12 X10*6/uL (4.60-5.80); White Blood Count 5.9 X10*3/uL (4.8-10.8)
[2024-08-25 14:27] LABS: Alanine Aminotransferase 52 U/L (0-40); Albumin Level 4.3 g/dL (3.5-5.0); Alkaline Phosphatase 80 U/L (39-117); Anion Gap 9 (12-20); Aspartate Amino Transferase 36 U/L (5-37); Bilirubin Total 0.6 mg/dL (0.0-1.0); Blood Urea Nitrogen 9 mg/dL (9-16); Calcium 9.6 mg/dL (8.4-10.2); Carbon Dioxide 28 mmol/L (22-29); Chloride 106 mmol/L (96-108); Cholesterol 148 mg/dL (<200); Estimated Glomerular Filt Rate > 60; Glucose Fasting 140 mg/dL (60-99); HDL Cholesterol 26 mg/dL (>40); LDL Cholesterol Calculated 77 mg/dL (<100); Potassium 4.2 mmol/L (3.3-5.1); Sodium 139 mmol/L (135-145); Triglycerides 225 mg/dL (<150)
== END 2024-08-25 11:10 | disposition home or self-care (01) ==
LOC: HO.HMGCX 11:09
PROVIDERS: PCP Nurse Practitioner Family; Referring Provider Nurse Practitioner Psychiatric/Mental Health; Visit Provider Nurse Practitioner Family
DX: R09.89 Other specified symptoms and signs involving the circulatory and respiratory systems (principal); Z79.899 Other long term (current) drug therapy
CPT/HCPCS: 36415; 71046; 80053; 80061; 80178; 81003; 85025

== ENCOUNTER → 2024-08-25 11:14 | Outpatient (BNV) | payer OTHER, SELFPAY | PROVIDERS: PCP Nurse Practitioner Family; Referring Provider Nurse Practitioner Psychiatric/Mental Health; Visit Provider Radiology Diagnostic Radiology | DX: R09.89 Other specified symptoms and signs involving the circulatory and respiratory systems (principal) | CPT/HCPCS: 71046 ==

== ENCOUNTER 2024-09-19 10:28 | Outpatient (AMB) | payer OTHER, SELFPAY ==
--- NOTE | 2024-09-19 10:38 | A.OFFVIS_ITS ---
Vital Signs 09/19/24 10:39 Height 6 ft 2 in Weight 290 lb BMI 37.2 BP 133/61 Blood Pressure Location Lt brachial Position Sitting Pulse 76 Pulse Oximetry (%) 96 Oxygen Delivery Method Room Air Intake Visit Reasons: abd pain Intake Note: Patient follow up for abdominal pain, lab and chest x-ray results. Patient cc: heartburn, abdominal pain with hard stool with constipation. Denies any other GI issues. Sales Agent Business Services Required: No Accompanied by: Self / Same As Patient Allergies doxycycline Allergy (Verified 09/19/24 10:38) Itching Medication List - Last Reconciled 09/19/24 by Roseann Briseno CNP albuterol sulfate 90 mcg/actuation 2 puffs inhalation Q6H PRN 30 days alpha lipoic acid 600 mg PO Q24H aspirin 81 mg PO DAILY 90 days bisacodyl 5 mg PO ONCE 1 day blood-glucose sensor (FreeStyle Lynne 3 Sensor device) As directed to monitor blood sugars blood-glucose sensor (Dexcom G7 Sensor device) test blood sugar 4 times per day blood-glucose sensor (FreeStyle Lynne 3 Plus Sensor device) Test blood sugar 4 times per day, change sensor every 15 days blood-glucose,semi automatic sewing machine operator,cont (Dexcom G7 Fur Liner) To test blood sugar 4 times per day cane straight, single legged cane cholecalciferol (vitamin D3) 50 mcg PO DAILY 90 days clonazepam Take 1/2 tab to 1 tab BID twice a day for severe anxiety or insomnia. cyanocobalamin (vitamin B-12) 500 mcg PO DAILY 30 days docusate sodium take one tablet daily empagliflozin (Jardiance) 10 mg PO DAILY famotidine 20 mg PO BID PRN gabapentin 400 mg PO TID 30 days galcanezumab-gnlm (Emgality Pen) 120 mg subcut ONCE 30 days ibuprofen 600 mg PO Q8H PRN lithium carbonate 300 mg PO BID losartan 25 mg PO DAILY metformin ER 500 mg PO DAILY omega-3 acid ethyl esters 1 cap PO BID oxcarbazepine 300 mg PO BID polyethylene glycol 3350 (Miralax) 238 grams PO ONCE [Standard hand held cane to use when ambulating ] tamsulosin 0.4 mg PO BID 90 days thiamine HCl (vitamin B1) 100 mg PO BID zinc citrate 11 mg PO DAILY HPI HPI abd pain: Details: Patient is a 49-year-old male with PMH of bipolar, anxiety, hypertension, hyperlipidemia, ANAYA, asthma, obesity and DMII. He was referred by PCP for pre colonoscopy screening Car presents for a follow-up visit primarily concerned with ongoing abdominal pain. He reports that a CT scan has been scheduled for the of this month. Previous CT scan in April was essentially normal. He mentions a history of liver enzyme elevation since 2019. A fatty liver diagnosis was mentioned in the early 1999s after imaging, though recent imaging does not confirm this. Car reports stopping alcohol consumption four years ago after a period of heavy drinking, which coincides with some improvement in liver enzyme levels. He experiences occasional heartburn, managed with on-demand medication, and difficulty with bowel movements, which improved after discontinuing Trulicity. Patient denies: fever/chills, n/v, appetite changes, regurgitation,dysphasia, unintentional wt loss or melena/hematochezia. Social hx: - Diet: Generally healthy, trying to improve following fatty liver diagnosis, incorporating heart-healthy habits. - Alcohol: Stopped drinking four years ago; prior daily heavy consumption for five years. [facility] Medical History (Updated 09/19/24 @ 12:27 by Roseann Briseno CNP) Abdominal pain Elevated liver enzymes Acid reflux Diverticulosis Abnormal lung sounds Pes planus of both feet Syndrome of inappropriate ADH (SIADH) secretion VSD (ventricular septal defect) Laird's palsy VSD (ventricular septal defect) Joint pain Pulmonary granuloma Encephalomalacia with cerebral infarction Stroke Gout Diverticulitis Fatty liver Splenomegaly Hypertriglyceridemia ANAYA on CPAP Mild asthma Ophthalmic migraine Heel spur ADHD Bipolar disorder Anxiety Type 2 diabetes mellitus with diabetic polyneuropathy, with long-term current use of insulin Essential hypertension Hyperlipidemia LDL goal <100 Vitamin D deficiency Obesity due to excess calories BMI 37.0-37.9, adult Type 2 diabetes mellitus with hyperglycemia Surgical History History of foot surgery History of hernia repair History of colectomy Family History Father Diabetes mellitus Mental health disorder Mother HTN (hypertension) Maternal Uncle Diabetes mellitus Substance use disorder Mental health disorder Paternal Grandmother Diabetes mellitus Paternal Grandfather Stomach cancer Social History Household Members: Significant Other and Children Housing: House Patient Tobacco Use Status: Former Tobacco user Tobacco use type: Cigarette Cigarettes Per Day: 8 Years Smoked: 25 e-Cigarette/Vaping Use: Currently Using Second Hand Smoke Exposure: No Substance Use Type: Marijuana service: No Current occupational status: disabled Cognitive needs: No Hearing needs: No Vision needs: No Review of Systems Const Reports as per HPI ENT Reports as per HPI Card Reports as per HPI Resp Reports as per HPI GI Reports as per HPI Reports as per HPI Physical Exam Vital Signs: Oxygen Delivery Method Room Air 09/19/24 10:39 Const General: no acute distress Nutritional Appearance: obese Orientation/consciousness: patient oriented x3 HEENT Head: Yes normal to inspection, Yes normocephalic and Yes atraumatic Face and sinus: Yes normal facial exam Eyes General: appearance normal, both eyes and all related structures Neck Neck: Yes normal visual inspection Resp Effort & Inspection: normal respiratory effort, able to speak in complete sentences, no tracheal deviation and symmetric chest movement Auscultation: clear to auscultation bilaterally Cardio Jugular venous distension: no JVD Rate: regular rate Rhythm: regular rhythm Heart sounds: S1 normal heart sound present, S2 normal heart sound present, no gallops and no murmurs GI Inspection: Yes normal to inspection, No distended and Yes obesity Palpation (GI): Soft to palpation, not firm, nontender and No hepatosplenomegaly present Auscultation: normal bowel sounds Neuro General: patient oriented x3 Gait exam (Neuro): Normal gait present Psych Appearance: grossly normal Mental Status: mental status grossly normal Speech and movement: Normal speech and movement present Affect: normal affect Attitude: cooperative Thought process: Normal thought process present Thought content: Normal thought content present Insight: Good insight present (Psych) Judgement: Good judgement present (Psych) Results Reviewed Results Reviewed: Date of Service: 08/25/24 Procedure(s): XR chest 2V Accession Number(s): [id number] cc: Lázaro Browning DOUGH PANNER-BC; Roseann Briseno DISTILLING DEPARTMENT SUPERVISOR~ EXAMINATION: XR CHEST CLINICAL INFORMATION: R09.89 - Other specified symptoms and signs involving the circulatory an... COMPARISON: None available. TECHNIQUE: 2 views of the chest were obtained. FINDINGS: The cardiac, hilar, and mediastinal contours are normal. There is an atrial septal baffle noted. The lungs are clear bilaterally. There is no pneumothorax or pleural effusion. There is no focal osseous or soft tissue abnormality. XR/XR chest 2V IMPRESSION: No active pulmonary disease. Atrial septal baffle in place. Date of Service: 04/14/24 Procedure(s): CT abdomen pelvis wo IV con Accession Number(s): [id number] cc: Lázaro Browning [facility]-; King Villanueva~ Report Number: [id number]: Total DLP = 998.00 mGy-cm EXAMINATION: CT ABDOMEN AND PELVIS WITHOUT CONTRAST CLINICAL INFORMATION: Left flank and abdominal pain. History of stones. COMPARISON: CT abdomen pelvis 12/15/2023. TECHNIQUE: Multidetector volumetric imaging was performed from the superior aspect of the liver through the pubic symphysis. Sagittal and coronal reformatted images were obtained on the technologist's workstation. This CT examination was performed using dose optimization techniques as appropriate, variously including the following: *Automated exposure control *Adjustment of mA and/or kV according to patient size (this includes techniques or standardized protocols for targeted exams where dose is matched to indication/reason for exam; i.e. extremities or head) *Use of iterative reconstruction technique DLP 998 mGy/cm. FINDINGS: LUNG BASES: The visualized lung bases are unremarkable. LIVER, GALLBLADDER, AND BILIARY TREE: The liver is normal in size, shape, and attenuation. No focal hepatic lesion or biliary ductal dilatation is present. The gallbladder is unremarkable with no evidence of radiopaque gallstones, gallbladder wall thickening, or obvious pericholecystic inflammatory changes. PANCREAS: Unremarkable. SPLEEN: Unremarkable. ADRENAL GLANDS: Unremarkable. KIDNEYS AND URETERS: The kidneys are normal in size, shape, and attenuation. No hydronephrosis, hydroureter, or calculi seen. Mild bilateral perinephric stranding is noted. BLADDER: Unremarkable. GASTROINTESTINAL TRACT: There is scattered stool, diverticula and gas seen throughout the colon without distention. Postsurgical changes are seen in the proximal sigmoid colon with widely patent anastomosis.. The small bowel loops are normal caliber. There is no evidence of distention ABDOMINAL WALL: There is previous anterior abdominal wall hernia repair with mesh from midabdomen to the lower pelvis. A prominent left inguinal canal containing fat is noted similar to previous study. LYMPH NODES: Normal. VASCULAR: Unremarkable. PELVIC VISCERA: Unremarkable. OSSEOUS STRUCTURES: Grade 1 anterolisthesis L5 over S1 with L5-S1 degenerative disc changes. No aggressive lytic or sclerotic process seen. CT/CT abdomen pelvis wo IV con IMPRESSION: No acute intra-abdominal process seen. Previous sigmoid colon surgery with widely patent anastomotic segment. Colonic diverticulosis without diverticulitis. Mild constipation. No radiopaque urolith or hydroureteronephrosis. No major change compared to previous study 12/15/2023. Assessment & Plan Assessment & Plan (1) Acid reflux: Comment: 07/04/2018 EGD-Gastritis, gastric erosions-containing small amounts of heme Code(s): K21.9 - Gastro-esophageal reflux disease without esophagitis Category: Medical Qualifiers: Esophagitis presence: with esophagitis Esophagitis bleeding: without hemorrhage Qualified Code(s): K21.00 - Gastro-esophageal reflux disease with esophagitis, without bleeding Plan: Rare sx, responsive to PRN acid suppression. Additional Tests: EGD pending Medications: Continue famotidine PRN; no daily PPI/H2RA needed unless sx increase. Lifestyle Modifications: Avoid triggers; small meals; elevate HOB if nocturnal sx. (2) Elevated liver enzymes: Code(s): R74.8 - Abnormal levels of other serum enzymes Category: Medical Plan: Persistent LFT elevation, hx fatty liver, prior ETOH use, imaging not definitive. Additional Tests: Repeat LFTs, hepatitis serologies, iron studies, autoimmune panel, check hep B immunity. Medications: Monitor current meds; consider hep B vax if non-immune. Lifestyle Modifications: Continue heart-healthy, low-fat diet; regular physical activity; avoid ETOH. (3) Abdominal pain: Comment: February 2008-Laparoscopic sigmoid colectomy for management of recurrent dive rticulitis colitis with abscess Code(s): R10.9 - Unspecified abdominal pain Category: Medical Qualifiers: Abdominal location: lower abdomen, unspecified Qualified Code(s): R10.30 - Lower abdominal pain, unspecified Plan: Ongoing abd pain, hx hernia, prior normal imaging, pending CT scan. Additional Tests: reassured with CT results from 04/2024. However, Car would like to repeat given continued ab pain and hernia history. Routine/screening labs also ordered (LFTs, autoimmune markers). Medications: Continue current regimen; start Colace 100mg PO QHS for hard stools. Lifestyle Modifications: Maintain fiber intake, hydration, regular exercise. Return precautions reviewed Plan Reviewed normal CXR findings He understands we will communicate any pertinent findings via patient portal/phone prior to next follow up that's planned for after endoscopy Time: I spent a total of 25 minutes on the date of encounter which includes: Preparing to see the patient (reviewed previous documentation, test results and medical history) Performing a medically appropriate exam and/or evaluation Ordering medications, tests, and procedures Documenting clinical information in the health record Orders: Orders Mitochondrial Antibody Today R74.8 - Abnormal levels of other serum enzymes Smooth Muscle Antibody Today R74.01 - Elevation of levels of liver transaminase levels Prothrombin Time INR Today R74.8 - Abnormal levels of other serum enzymes Ferritin Today R74.8 - Abnormal levels of other serum enzymes Hemoglobin A1c Today E11.65 - Type 2 diabetes mellitus with hyperglycemia, Z79.4 - [facility] (current) use of insulin Hepatitis A,B,C Profile Today R74.8 - Abnormal levels of other serum enzymes HIV Ab/Ag Today R74.8 - Abnormal levels of other serum enzymes Medications: New docusate sodium take one tablet daily 180 caps 1RF constipation bisacodyl Take four tablets once for 1 day per colonoscopy instructions 5 mg PO ONCE 1 day 4 tabs 0RF polyethylene glycol 3350 (Miralax) per colonoscopy prep instructions 238 grams PO ONCE 238 grams 0RF Coding Level of Care Code Established Pt Est Pt Level 3 (29515) Patient Type Established Diagnoses Gastroesophageal reflux disease with esophagitis without hemorrhage K21.00 Esophagitis presence: with esophagitis Esophagitis bleeding: without hemorrhage Elevated liver enzymes R74.8 Lower abdominal pain R10.30 Abdominal location: lower abdomen, unspecified
[2024-09-19 10:39] VITALS: BP 133/61; PULSE 76; O2SAT 96; BMI 37.2
== END 2024-09-19 11:11 | disposition home or self-care (01) ==
LOC: HO.HGI 10:29
PROVIDERS: PCP Nurse Practitioner Family; Visit Provider Nurse Practitioner Family
DX: K21.00 Gastro-esophageal reflux disease with esophagitis, without bleeding (principal); R74.8 Abnormal levels of other serum enzymes; R10.30 Lower abdominal pain, unspecified
CPT/HCPCS: 99213

== ENCOUNTER → 2024-09-19 10:28 | Outpatient (BNVA) | payer OTHER, SELFPAY | PROVIDERS: PCP Nurse Practitioner Family; Visit Provider Nurse Practitioner Family | DX: K21.00 Gastro-esophageal reflux disease with esophagitis, without bleeding (principal); R74.8 Abnormal levels of other serum enzymes; R10.30 Lower abdominal pain, unspecified | CPT/HCPCS: 99212 ==

== ENCOUNTER 2024-09-25 08:27 | Outpatient (REF) | payer OTHER, SELFPAY ==
--- NOTE | ~2024-09-25 | CT_ITS ---
EXAMINATION: CT ABDOMEN AND PELVIS WITH CONTRAST CLINICAL INFORMATION: Lower abdominal pain. COMPARISON: April 14, 2024. TECHNIQUE: Multidetector volumetric images were obtained from the superior aspect of the liver through the pubic symphysis following administration 85 mL of Omnipaque 350 intravenous contrast. Sagittal and coronal reformatted images were obtained on the technologist's workstation. Oral contrast: [address] examination was performed using dose optimization techniques as appropriate, variously including the following: *Automated exposure control *Adjustment of mA and/or kV according to patient size (this includes techniques or standardized protocols for targeted exams where dose is matched to indication/reason for exam; i.e. extremities or head) *Use of iterative reconstruction technique DLP: 803 mGy centimeter. FINDINGS: LUNG BASES: No acute airspace disease. LIVER, GALLBLADDER, AND BILIARY TREE: Liver measures 19 cm. Subtle nodular surface. No focal mass. Portal veins, hepatic veins and intrahepatic portion of the IVC are patent. Gallbladder is contracted with no focal intraluminal calcification. No rectovesical fluid collection or gallbladder wall thickening. No intrahepatic or extrahepatic biliary ductal dilatation. PANCREAS: No focal mass. No peripancreatic fluid collection. No main pancreatic ductal dilatation. SPLEEN: 14 cm. No focal lesion. ADRENAL GLANDS: No nodular lesion. KIDNEYS AND URETERS: No hydronephrosis. No gross nephrolithiasis. Subcentimeter cystic lesions right laterally. Normal enhancement pattern in the renal cortex. No gross renal mass. BLADDER: Fluid-filled. GASTROINTESTINAL TRACT: Numerous diverticula, left hemicolon. Abundant stool. No intestinal obstruction pattern. No intestinal wall thickening. Sutures at the mid sigmoid colon. No pericolonic edema pattern. Appendix is normal. No ascites. No pneumoperitoneum. No pneumatosis intestinalis. ABDOMINAL WALL: Fat-containing left internal hernia. Status post mesh, umbilical/epigastric region. Status post mesh, right inguinal canal. LYMPH NODES: Nonspecific mildly prominent in the mesentery . VASCULAR: No aneurysm or dissection, abdominal aorta. There is a catheter in the inferior vena cava/right atrium. PELVIC VISCERA: Not enlarged. OSSEOUS STRUCTURES: Sclerosis decreased intervertebral disc height, marginal osteophyte formation and facet joint hypertrophy at L5-S1 with a grade 1 anterolisthesis resulting in bilateral neuroforamina stenosis. CT/CT abdomen pelvis w IV con IMPRESSION: Hepatosplenomegaly. Hepatocellular disease/dysfunction cannot be excluded. Fat-containing left inguinal hernia. Diverticular disease, left hemicolon. Cholelithiasis. Grade 1 anterolisthesis on a degenerative basis, L5-S1. Central venous line catheter extends to the inferior vena cava/right atrial junction. Fleischner guidelines were followed. Electronically signed by: Miguel Gage MD 09/25/2024 03:19 PM EDT
--- OUTSIDE RECORDS SUMMARY | 2024-09-25 08:39 | XMS_ITS | Patient Health Record ---
Author Organization [facility] Address [address] [place] [address] Care Team Providers Care Compress Trucker Name Role Phone Naseem Tamayo M.D. Primary Care Provider Michelle vailable Israel Montoya Unavailable [phone] Reason For Referral No Information Plan Of Treatment No Information Insurance Providers Payer Name Payer Address Payer Phone Subscriber Number Group Number Insured Name Patient Relationship to Insured Coverage Start Date Coverage End Date [facility] [address] [place] [phone] [id number] SAL CALLE Self - patient is the insured Medical (General) History Medical History History ICD Code diverticulitis fatty liver sleep apnea Surgical History Surgery Date(Month/Year) bariatric surgery
[2024-09-25 10:36] LABS: INTERNATIONAL NORM RATIO 1.1 (0.9-1.1); Prothrombin Time 12.3 SEC (10.9-12.4)
[2024-09-25 10:45] LABS: Estimated Average Glucose 114 mg/dL; Hemoglobin A1c % 5.6 % (<6.0)
[2024-09-25 11:04] LABS: Ferritin 296 ng/mL (20-250)
[2024-09-25 11:12] LABS: HBS Num1 3.94 mIU/mL (0-7.99); HBc Num1 0.09 S/CO (0.00-0.79); HBsAGNum1 0.46 S/CO (0.00-0.99); HIV AB/AG Nonreactive (Nonreactive); HIV Num 1 0.06 S/CO (0.00-0.99); Hepatitis A Antibody IgM 0.14 Index (0-0.79); Hepatitis B Core Antibody Nonreactive (Nonreactive); Hepatitis B Surface Antigen Negative (Negative); ~HepC Num1 0.15 S/CO (0.00-0.79); ~Hepatitis A Antibody IgM Nonreactive (Nonreactive); ~Hepatitis B Surface Antibody NONREACTIVE (Nonreactive); ~Hepatitis C Antibody Nonreactive (Nonreactive)
[2024-09-25] MEDS: iohexoL 350 MG/ML 100 ML INFUS..BTL 85 ML IV (15:02)
[2024-09-25] MEDS: Barium Sulfate Oral (Mocha) 450 ML ORAL.SUSP 900 ML PO (15:03)
[2024-09-27 12:39] LABS: Mitochondrial Antibodies NEGATIVE (NEGATIVE)
[2024-09-29 22:48] LABS: Smooth Muscle Antibody <20 U (<20)
== END 2024-09-25 08:28 | disposition home or self-care (01) ==
LOC: HO.CT 08:27
PROVIDERS: PCP Nurse Practitioner Family; Visit Provider Nurse Practitioner Family
DX: R10.33 Periumbilical pain (principal); G89.29 Other chronic pain; K57.30 Diverticulosis of large intestine without perforation or abscess without bleeding; R10.30 Lower abdominal pain, unspecified; R74.01 Elevation of levels of liver transaminase levels; R74.8 Abnormal levels of other serum enzymes; K57.90 Diverticulosis of intestine, part unspecified, without perforation or abscess without bleeding; E11.65 Type 2 diabetes mellitus with hyperglycemia; Z79.4 Long term (current) use of insulin
CPT/HCPCS: 36415; 74177; 82728; 83036; 85610; 86015; 86381; 86704; 86706; 86709; 86803; 87340; 87389; Q9967

== ENCOUNTER → 2024-09-25 12:26 | Outpatient (BNV) | payer OTHER, SELFPAY | PROVIDERS: PCP Nurse Practitioner Family; Visit Provider Radiology Diagnostic Radiology | DX: R10.30 Lower abdominal pain, unspecified (principal) | CPT/HCPCS: 74177 ==

== ENCOUNTER 2024-09-29 08:04 | Outpatient (AMB) | payer OTHER, SELFPAY ==
[2024-09-29 08:05] VITALS: BP 138/76; PULSE 70; TEMP 36.7; O2SAT 99; BMI 37.0
--- NOTE | 2024-09-29 08:05 | AM.OFFWIN_ITS ---
Intake Vital Signs 09/29/24 08:05 Height 6 ft 2 in Weight 288 lb BMI 37.0 BP 138/76 Blood Pressure Location Lt brachial Position Sitting Pulse 70 Pulse Source Pulse Oximeter Temp 98.1 F Temp Source Oral Pulse Oximetry (%) 99 Oxygen Delivery Method Room Air Intake Visit Reasons: EP Sore throat Intake Note: sore throat/chest congestion x6 days; c/o throat irritation and pain with swallowing Patient Tobacco Use Status: Former Tobacco user Allergies doxycycline Allergy (Verified 09/29/24 08:11) Itching Do you need a note to return to daycare/school/sports/work: No HPI HPI Comments History of Present Illness Details History - The patient is a 49-year-old male pres enting with symptoms suggestive of an upper respiratory tract infection. - Symptoms began approximately six days ago with chest congestion, progressing to sore throat and difficulty swallowing. - The patient reports observing a white, vein-like appearance in the throat, which has since become raw and red. - he denies any shortness of breath whee zing or fevers - he denies a history of asthma or COPD, but he does have a inhaler at home that he uses as needed - The patient avoids coughing due to miky ateral hernias and associated testicular pain. - The patient has a known allergy to dox ycycline. Physical Exam General: Cooperative, healthy appearing, comfortable and no acute distress Orientation/consciousness: Patient oriented x3 Limitations: No limitations Head: Normal to inspection Ears: Hearing grossly normal bilaterally, external ears normal and TM's normal bilaterally Nose: Normal external nose present, Normal nares present and No nasal discharge present Face and sinus: Normal facial exam and Yes sinuses nontender Mouth: Normal oral and palatal mucosa present and moist mucous membranes Throat: Yes tonsils normal, Yes uvula midline. Posterior oropharynx erythema, no exudates Eyes: Appearance normal, both eyes and all related structures, chronic watery eyes due to past Laird's palsy Neck: Normal visual inspection, full ROM Respiratory: Clear to auscultation bilaterally. Normal respiratory effort, able to speak in complete sentences, Actively coughing, no respiratory distress, not tachypneic, no tripod positioning and no use of accessory muscles Cardiovascular: Regular rate and rhythm. Normal S1 and S2 Skin: No rashes or lesions noted Neuro: Patient oriented x3 Extremities: Normal to inspection and Yes no clubbing, cyanosis or edema [facility] Medical History (Updated 09/29/24 @ 08:32 by Kenia Montana PA-C) Abdominal pain Elevated liver enzymes Acid reflux Diverticulosis Abnormal lung sounds Pes planus of both feet Syndrome of inappropriate ADH (SIADH) secretion VSD (ventricular septal defect) Laird's palsy VSD (ventricular septal defect) Joint pain Pulmonary granuloma Encephalomalacia with cerebral infarction Stroke Gout Diverticulitis Fatty liver Splenomegaly Hypertriglyceridemia ANAYA on CPAP Mild asthma Ophthalmic migraine Heel spur ADHD Bipolar disorder Anxiety Type 2 diabetes mellitus with diabetic polyneuropathy, with long-term current use of insulin Essential hypertension Hyperlipidemia LDL goal <100 Vitamin D deficiency Obesity due to excess calories BMI 37.0-37.9, adult Type 2 diabetes mellitus with hyperglycemia Surgical History History of foot surgery History of hernia repair History of colectomy Family History Father Diabetes mellitus Mental health disorder Mother HTN (hypertension) Maternal Uncle Diabetes mellitus Substance use disorder Mental health disorder Paternal Grandmother Diabetes mellitus Paternal Grandfather Stomach cancer Social History Household Members: Significant Other and Children Housing: House Patient Tobacco Use Status: Former Tobacco user Tobacco use type: Cigarette Cigarettes Per Day: 8 Years Smoked: 25 e-Cigarette/Vaping Use: Currently Using Second Hand Smoke Exposure: No Substance Use Type: Marijuana service: No Current occupational status: disabled Cognitive needs: No Hearing needs: No Vision needs: No Review of Systems Const All systems reviewed & are unremarkable except as noted in HPI and below Physical Exam Vital Signs: Last Vital Signs Temp 98.1 F 09/29/24 08:05 Pulse 70 09/29/24 08:05 BP 138/76 09/29/24 08:05 Pulse Ox 99 09/29/24 08:05 Oxygen Delivery Method Room Air 09/29/24 08:05 BMI result Body Mass Index 37.0 Results AMB Rapid Strep AMB Rapid Strep Negative Last Edit by Hunter Brown CMA on 09/29/24 08 :34 Assessment & Plan Assessment & Plan (1) URI, acute: Code(s): J06.9 - Acute upper respiratory infection, unspecified Plan: - VSS, pt well appearing and PE unremarkable - rapid strep negative - Conduct COVID-19 testing to rule out viral infection; if negative, consider bacterial etiology and prescribe azithromycin Z-Nick. - Recommend Lisa D for decongestion and allergy management, available in 12- hour and 24-hour formulations. - Prescribe tessalon perles for cough suppression, to be taken at night only so he can get some rest. - Advise increased fluid intake to thin secretions and facilitate easier expectoration. - Suggest using albuterol inhaler for bronchospasm-related cough episodes. Patient was informed and verbally consented to the use of an ambient scribe for clinic note documentation during this visit Orders: Orders AMB Rapid Strep Screen Today Z13.9 - Encounter for screening, unspecified SARS-CoV2/FLU/RSV Today R09.89 - Other specified symptoms and signs involving the circulatory and respiratory systems Medications: New benzonatate 200 mg PO BEDTIME PRN 10 caps 0RF cough Coding Level of Care Code Est Pt Level 3 (74259) Diagnoses URI, acute J06.9
--- OUTSIDE RECORDS SUMMARY | 2024-09-29 08:06 | XMS_ITS | Patient Health Record ---
Author Organization [facility] Address [address] [place] [address] Care Team Providers Care Mechanical Operator Name Role Phone Naseem Tamayo M.D. Primary Care Provider Michelle vailable Israel Montoya Unavailable [phone] Reason For Referral No Information Plan Of Treatment No Information Insurance Providers Payer Name Payer Address Payer Phone Subscriber Number Group Number Insured Name Patient Relationship to Insured Coverage Start Date Coverage End Date [facility] [address] [place] [phone] [id number] SAL CALLE Self - patient is the insured Medical (General) History Medical History History ICD Code diverticulitis fatty liver sleep apnea Surgical History Surgery Date(Month/Year) bariatric surgery
== END 2024-09-29 08:33 | disposition home or self-care (01) ==
PROVIDERS: PCP Nurse Practitioner Family; Visit Provider Physician Assistant
DX: Z13.9 Encounter for screening, unspecified (principal); J06.9 Acute upper respiratory infection, unspecified

== ENCOUNTER 2024-09-29 08:04 | Outpatient (REF) | payer OTHER, SELFPAY ==
[2024-09-29 11:12] LABS: Influenza A PCR NEGATIVE (Negative); Influenza B PCR NEGATIVE (Negative); Resp Syncy Virus RNA Qual PCR NEGATIVE (Negative); SARS COV2 PCR INHOUSE NEGATIVE (Negative)
== END 2024-09-29 08:05 | disposition home or self-care (01) ==
LOC: HO.LNP 08:04
PROVIDERS: PCP Nurse Practitioner Family; Visit Provider Physician Assistant
DX: R09.89 Other specified symptoms and signs involving the circulatory and respiratory systems (principal); J06.9 Acute upper respiratory infection, unspecified
CPT/HCPCS: 0241U; 87880; 99212

== ENCOUNTER 2024-10-03 09:36 | Outpatient (AMB) | payer OTHER, SELFPAY ==
[2024-10-03 09:57] VITALS: BP 130/76; PULSE 71; BMI 37.1
--- NOTE | 2024-10-03 09:57 | MHC.OFFVIS ---
Vital Signs 10/03/24 09:57 Height 6 ft 2 in Weight 288 lb 12.889 oz BMI 37.1 BP 130/76 Blood Pressure Location Lt brachial Position Sitting Pulse 71 Pulse Source Monitor Intake Visit Reasons: ENTERPRISE APPLICATION ADMINISTRATOR/Nam/Chelo, 1st degree preop colonoscopy Telephone Operators Supervisor Required: No Accompanied by: Self / Same As Patient Allergies doxycycline Allergy (Verified 09/29/24 08:11) Itching Medication List - Last Reconciled 10/03/24 by Avila Humphrey MD albuterol sulfate 90 mcg/actuation 2 puffs inhalation Q6H PRN 30 days alpha lipoic acid 600 mg PO Q24H aspirin 81 mg PO DAILY 90 days azithromycin For 250 mg dose pack: take 500 mg today (day 1), then 250 mg for 4 days (days 2-5) PO benzonatate 200 mg PO BEDTIME PRN bisacodyl 5 mg PO ONCE 1 day blood-glucose sensor (FreeStyle Lynne 3 Sensor device) As directed to monitor blood sugars blood-glucose sensor (Dexcom G7 Sensor device) test blood sugar 4 times per day blood-glucose sensor (FreeStyle Lynne 3 Plus Sensor device) Test blood sugar 4 times per day, change sensor every 15 days blood-glucose,post graduate intern,cont (Dexcom G7 Associate Professor Of Geography) To test blood sugar 4 times per day cane straight, single legged cane cholecalciferol (vitamin D3) 50 mcg PO DAILY 90 days clonazepam Take 1/2 tab to 1 tab BID twice a day for severe anxiety or insomnia. cyanocobalamin (vitamin B-12) 500 mcg PO DAILY 30 days docusate sodium take one tablet daily empagliflozin (Jardiance) 10 mg PO DAILY famotidine 20 mg PO BID PRN gabapentin 400 mg PO TID 30 days galcanezumab-gnlm (Emgality Pen) 120 mg subcut ONCE 30 days ibuprofen 600 mg PO Q8H PRN lithium carbonate 450 mg PO BID losartan 25 mg PO DAILY metformin ER 500 mg PO DAILY omega-3 acid ethyl esters 1 cap PO BID oxcarbazepine 300 mg PO BID polyethylene glycol 3350 (Miralax) 238 grams PO ONCE [Standard hand held cane to use when ambulating ] tamsulosin 0.4 mg PO BID 90 days zinc citrate 11 mg PO DAILY HPI Comments Details: Car has been referred for cardiac evaluation. He has a history of PFO/ASD closure in setting of stroke. Many comorbidities including obesity, diabetes, obstructive sleep apnea. In 2021, it seems that he underwent closure of a small ASD. He has remained on aspirin therapy but otherwise has not had any cardiac follow-up. He states he is generally feeling fine. Does not really have any exertional angina or shortness of breath or in fact any other cardiac complaints. There is no history of any coronary disease myocardial infarction or cardiomyopathy. He has obstructive sleep apnea and uses CPAP. 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 Joint pain Pulmonary granuloma Encephalomalacia with cerebral infarction Stroke Gout Diverticulitis Fatty liver Splenomegaly Hypertriglyceridemia ANAYA on CPAP Mild asthma Ophthalmic migraine Heel spur ADHD Bipolar disorder Anxiety Type 2 diabetes mellitus with diabetic polyneuropathy, with long-term current use of insulin Essential hypertension Hyperlipidemia LDL goal <100 Vitamin D deficiency Obesity due to excess calories BMI 37.0-37.9, adult Type 2 diabetes mellitus with hyperglycemia Surgical History (Updated 10/03/24 @ 11:19 by Avila Humphrey MD) History of foot surgery History of hernia repair History of colectomy Family History Father Diabetes mellitus Mental health disorder Mother HTN (hypertension) Maternal Uncle Diabetes mellitus Substance use disorder Mental health disorder Paternal Grandmother Diabetes mellitus Paternal Grandfather Stomach cancer Social History Household Members: Significant Other and Children Housing: House Patient Tobacco Use Status: Former Tobacco user Tobacco use type: Cigarette Cigarettes Per Day: 8 Years Smoked: 25 e-Cigarette/Vaping Use: Currently Using Second Hand Smoke Exposure: No Substance Use Type: Marijuana service: No Current occupational status: disabled Cognitive needs: No Hearing needs: No Vision needs: No Review of Systems Const Denies chills, Denies fatigue, Denies fever(s), Denies frequent falls, Denies weakness, Denies weight gain and Denies weight loss ENT Denies dizziness Card Reports chest pain, Reports chest pain at rest, Denies leg edema, Denies lightheadedness, Reports palpitations, Reports dyspnea, Reports dyspnea on exertion and Reports orthopnea Resp Denies cough, Reports dyspnea and Reports dyspnea on exertion GI Denies bloating and Denies change in bowel habits Musc Denies muscle weakness, Denies numbness and Denies tingling Neuro Denies dizziness, Denies frequent falls, Denies numbness, Denies tingling and Denies weakness Endo Denies fatigue and Reports palpitations Physical Exam Vital Signs: Last Vital Signs Pulse 71 10/03/24 09:57 BP 130/76 10/03/24 09:57 BMI result Body Mass Index 37.1 Const General: comfortable and no acute distress Orientation/consciousness: patient oriented x3 HEENT Other: Unremarkable Head: Yes normal to inspection Neck Neck: Yes normal visual inspection Chest Chest palpation & inspection: normal inspection of the chest Resp Auscultation: clear to auscultation bilaterally Cardio Palpation: normal PMI Heart sounds: S1 normal heart sound present, S2 normal heart sound present, no gallops, no murmurs and no rubs GI Palpation (GI): Soft to palpation Back/Spine/Pelvis Other: unremarkable Skin General skin exam: no rashes or lesions noted Neuro General: patient oriented x3 Extrem General: Yes normal to inspection Psych Mental Status: mental status grossly normal Office Procedures EKG Details: EKG with underlying sinus rhythm at 71/Min; leftward axis; nonspecific intraventricular conduction delay; [place] [id number], Complete Assessment & Plan Assessment & Plan (1) Status post device closure of ASD: Code(s): Z87.74 - Personal history of (corrected) congenital malformations of heart and circulatory system Category: Surgical Plan: Per echocardiogram at [facility], no evidence of residual shunting and normal bubble study. Continue aspirin. (2) First degree AV block: Code(s): I44.0 - Atrioventricular block, first degree Category: Medical Plan: Previously, noted to have first-degree heart block but nothing evidence in today's EKG. Minimal to mild conduction system disease related to obesity and sleep apnea. For this, main treatment is weight loss and compliance with CPAP. We discussed about this today. Coding Level of Care Code New Pt Level 3 (98452) Diagnoses Status post device closure of ASD Z87.74 First degree AV block I44.0 CPT Codes EKG - CPT: 25060-Iughvqkzxfaaxqsaq, Complete ([id number])
--- OUTSIDE RECORDS SUMMARY | 2024-10-03 10:22 | XMS_ITS | Patient Health Record ---
Author Organization [facility] Address [address] [place] [address] Care Team Providers Care Cleat Feeder Name Role Phone Naseem Tamayo M.D. Primary Care Provider Michelle vailable Israel Montoya Unavailable [phone] Reason For Referral No Information Plan Of Treatment No Information Insurance Providers Payer Name Payer Address Payer Phone Subscriber Number Group Number Insured Name Patient Relationship to Insured Coverage Start Date Coverage End Date [facility] [address] [place] [phone] [id number] SAL CALLE Self - patient is the insured Medical (General) History Medical History History ICD Code diverticulitis fatty liver sleep apnea Surgical History Surgery Date(Month/Year) bariatric surgery
== END 2024-10-03 10:29 | disposition home or self-care (01) ==
LOC: HO.HCS 09:37
PROVIDERS: PCP Nurse Practitioner Family; Visit Provider Internal Medicine
DX: Z87.74 Personal history of (corrected) congenital malformations of heart and circulatory system (principal); I44.0 Atrioventricular block, first degree
CPT/HCPCS: 93010; 99203

== ENCOUNTER → 2024-10-03 09:36 | Outpatient (BNVA) | payer OTHER, SELFPAY | PROVIDERS: PCP Nurse Practitioner Family; Visit Provider Internal Medicine | DX: I44.0 Atrioventricular block, first degree (principal); Z87.74 Personal history of (corrected) congenital malformations of heart and circulatory system | CPT/HCPCS: 93005; 99202 ==

== ENCOUNTER 2024-10-13 11:02 | Outpatient (REF) | payer OTHER, SELFPAY ==
--- OUTSIDE RECORDS SUMMARY | 2024-10-13 11:39 | XMS_ITS | Patient Health Record ---
Author Organization [facility] Address [address] [place] [address] Care Team Providers Care Merchandising Execution Manager Name Role Phone Naseem Tamayo M.D. Primary Care Provider Michelle vailable Israel Montoya Unavailable [phone] Reason For Referral No Information Plan Of Treatment No Information Insurance Providers Payer Name Payer Address Payer Phone Subscriber Number Group Number Insured Name Patient Relationship to Insured Coverage Start Date Coverage End Date [facility] [address] [place] [phone] [id number] SAL CALLE Self - patient is the insured Medical (General) History Medical History History ICD Code diverticulitis fatty liver sleep apnea Surgical History Surgery Date(Month/Year) bariatric surgery
[2024-10-13 14:41] LABS: Lithium 0.48 mmol/L (0.60-1.20)
== END 2024-10-13 11:03 | disposition home or self-care (01) ==
LOC: HO.HMGCLDS 11:02
PROVIDERS: PCP Nurse Practitioner Family; Visit Provider Nurse Practitioner Psychiatric/Mental Health
DX: Z79.899 Other long term (current) drug therapy (principal)
CPT/HCPCS: 36415; 80178

== ENCOUNTER 2024-11-07 11:04 | Outpatient (AMB) | payer OTHER, SELFPAY ==
--- NOTE | 2024-11-07 11:08 | MHC.OFFVIS ---
Intake Visit Reasons: 3M follow up/ PVR Intake Note: Patient is present for 3M/PVR Urology Medication: TAMSULSOIN Antibiotic Allergy:DOXCYCLINE Blood Thinner:ASPIRIN Last PVR:21ML'S Todays PVR:95ML'S Weather Forecaster Required: No Allergies doxycycline Allergy (Verified 11/07/24 11:22) Itching HPI Comments Details: Car is a 49-year-old male patient of Dr. Banks. He has a past medical history of ventricular septal defect, Laird's palsy, stroke, gout, diverticulitis, fatty liver, splenomegaly, ANAYA on CPAP, mild asthma, ADHD, bipolar disorder, anxiety, type 2 diabetes, hyperlipidemia, obesity, and vitamin-D deficiency. He presents to the office today for follow-up. In discussion with the patient today he reports no improvement in urinary hesitancy and weak urinary stream with increase in Flomax. He continues to discuss episodes of needing to sit when urinating to relax pelvis and how bothersome he is by this issue. He also reports noting retrograde ejaculation with Flomax. We did discuss potential causes of lower urinary tract symptoms patient continues to experience. We did discussed further treatment options and risks and benefits of these treatment options. Previous workup has included a CT 09/27 noting no hydronephrosis, gross nephrolithiasis or renal masses noted bilaterally. Subcentimeter cystic lesion right kidney. Patient with a previous history of following up with Dr. Tena in the past for scrotal discomfort however denies this to be an issue at this time. He does continue to report urinary hesitancy and nocturia. In office urinalysis results reviewed with the patient today. PVR 95 mL. In review of patient's chart it appears PSA 05/30 0.2. When asked patient denies any known family history of prostate cancer. He otherwise denies incontinence, hematuria, dysuria, foul smelling urine, flank pain, fever, and or chills. We discussed at length potential causes of lower urinary tract symptoms patient is experiencing as well as further treatment options and risks and benefits of these treatment options. All questions were answered. He otherwise offers no other issues or concerns at this time. 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 Joint pain Pulmonary granuloma Encephalomalacia with cerebral infarction Stroke Gout Diverticulitis Fatty liver Splenomegaly Hypertriglyceridemia ANAYA on CPAP Mild asthma Ophthalmic migraine Heel spur ADHD Bipolar disorder Anxiety Type 2 diabetes mellitus with diabetic polyneuropathy, with long-term current use of insulin Essential hypertension Hyperlipidemia LDL goal <100 Vitamin D deficiency Obesity due to excess calories BMI 37.0-37.9, adult Type 2 diabetes mellitus with hyperglycemia Surgical History (Updated 10/03/24 @ 11:19 by Avila Humphrey MD) History of foot surgery History of hernia repair History of colectomy Family History Father Diabetes mellitus Mental health disorder Mother HTN (hypertension) Maternal Uncle Diabetes mellitus Substance use disorder Mental health disorder Paternal Grandmother Diabetes mellitus Paternal Grandfather Stomach cancer Social History (Reviewed 10/03/24 @ 10:02 by Shanta Rios [facility]) Household Members: Significant Other and Children Housing: House Patient Tobacco Use Status: Former Tobacco user Tobacco use type: Cigarette Cigarettes Per Day: 8 Years Smoked: 25 e-Cigarette/Vaping Use: Currently Using Second Hand Smoke Exposure: No Substance Use Type: Marijuana service: No Current occupational status: disabled Cognitive needs: No Hearing needs: No Vision needs: No Review of Systems Const Reports no additional complaints Eyes Reports no additional complaints ENT Reports no additional complaints Card Reports as per HPI Resp Reports as per HPI GI Reports as per HPI Reports as per HPI Musc Reports no additional complaints Neuro Reports as per HPI Psych Reports as per HPI Endo Reports as per HPI Maycol/Lymph Reports no additional complaints Aller/Immun Reports no additional complaints Physical Exam Const General: cooperative, healthy appearing, comfortable, no acute distress, well developed, alert and awake Nutritional Appearance: overweight Orientation/consciousness: patient oriented x3 Limitations: no limitations HEENT Head: Yes normal to inspection, Yes normocephalic and Yes atraumatic Ears: hearing grossly normal bilaterally Eyes General: appearance normal, both eyes and all related structures Neck Neck: Yes normal visual inspection and Yes trachea midline Chest Chest palpation & inspection: normal inspection of the chest Resp Effort & Inspection: normal respiratory effort and able to speak in complete sentences Cardio Rate: regular rate GI Inspection: Yes normal to inspection Other: as per HPI General: Yes no CVA tenderness Back/Spine/Pelvis Back: no CVA tenderness Skin General skin exam: no rashes or lesions noted Neuro General: patient oriented x3 Extrem General: Yes normal to inspection Psych Appearance: grossly normal and well kempt Mental Status: mental status grossly normal Speech and movement: Normal speech and movement present and Clear speech present Affect: normal affect Attitude: cooperative Thought process: Normal thought process present Thought content: Normal thought content present Insight: Fair insight present (Psych) Judgement: Fair judgement present (Psych) Office Procedures Post Void Residual Post Residual Void Post Void Residual (PVR): 95 [id number] Void Residual by ultrasound Assessment & Plan Assessment & Plan (1) History of urinary hesitancy: Code(s): Z87.898 - Personal history of other specified conditions Category: Medical (2) Nocturia: Code(s): R35.1 - Nocturia Category: Medical (3) Weak urinary stream: Code(s): R39.12 - Poor urinary stream Category: Medical Plan In office urinalysis results reviewed with the patient today; as noted above. PVR 95 mL. We discussed further treatment options to include in office cystoscopy and uroflow versus urodynamics; information provided. Stop Flomax. Start Cialis 5 mg daily. We discussed potential causes of lower urinary tract symptoms patient is experiencing as well as further treatment options and risks and benefits of these treatment options. Follow-up in 3 months with PVR; or sooner with any issues, concerns, and or questions. Medications: New tadalafil (Cialis) [id number] [facility] GroupGDRX Member [id number] 5 mg PO DAILY 90 tabs 0RF 90 days Refilled blood-glucose sensor (Dexcom G7 Sensor device) test blood sugar 4 times per day 3 ea 5RF E11.42 - Type 2 diabetes mellitus with diabetic polyneuropathy, E11.65 - Type 2 diabetes mellitus with hyperglycemia, Z79.4 - detention (current) use of insulin Discontinued tamsulosin Take on tablet in the morning and one at bedtime. Discontinued Reason: Doctor's Order 0.4 mg PO BID 90 days 180 caps 0RF N40.1 - Benign prostatic hyperplasia with lower urinary tract symptoms, R35.1 - Nocturia Patient Instructions: The patient had an opportunity to ask questions regarding the treatment plan. All questions were answered. Physical exam, labs, and imaging were discussed and reviewed in detail. As well as risks, benefits, and discussion of treatment choices. No major barriers to understanding were identified. The patient expressed understanding and agreement with the above treatment plan. The patient was made aware they should contact our office by phone for worsening of their current condition, the appearance of new symptoms, or with any questions or concerns. Compliance is encouraged with any medications and follow up testing that is ordered. It is a privilege to be allowed the opportunity to participate in? your urological care.? Again, if you have any questions or concerns If you have any questions or concerns please do not hesitate to contact me. The office is [phone]. This note is constructed using voice recognition software. While every effort has been made to ensure accuracy back roller errors may have been included. Yours sincerely, MORE Haji Coding Level of Care Code Est Pt Level 4 (09499) Diagnoses History of urinary hesitancy Z87.898 Nocturia R35.1 Weak urinary stream R39.12 CPT Codes Post Residual Void - PVR CPT Code: 65113-Yddp Void Residual by ultrasound ([id number])
--- OUTSIDE RECORDS SUMMARY | 2024-11-07 11:52 | XMS_ITS | Patient Health Record ---
Author Organization [facility] Address [address] [place] [address] Care Team Providers Care Zigzagger Name Role Phone Naseem Tamayo M.D. Primary Care Provider Michelle vailable Israel Montoya Unavailable [phone] Reason For Referral No Information Plan Of Treatment No Information Insurance Providers Payer Name Payer Address Payer Phone Subscriber Number Group Number Insured Name Patient Relationship to Insured Coverage Start Date Coverage End Date [facility] [address] [place] [phone] [id number] SAL CALLE Self - patient is the insured Medical (General) History Medical History History ICD Code diverticulitis fatty liver sleep apnea Surgical History Surgery Date(Month/Year) bariatric surgery
== END 2024-11-07 11:52 | disposition home or self-care (01) ==
LOC: HO.HUSH 11:04
PROVIDERS: PCP Nurse Practitioner Family; Visit Provider Nurse Practitioner Family
DX: Z87.898 Personal history of other specified conditions (principal); R35.1 Nocturia; R39.12 Poor urinary stream; Z13.9 Encounter for screening, unspecified
CPT/HCPCS: 99214

== ENCOUNTER → 2024-11-07 11:04 | Outpatient (BNVA) | payer OTHER, SELFPAY | PROVIDERS: PCP Nurse Practitioner Family; Visit Provider Nurse Practitioner Family | DX: E11.42 Type 2 diabetes mellitus with diabetic polyneuropathy (principal); E11.65 Type 2 diabetes mellitus with hyperglycemia; Z79.4 Long term (current) use of insulin; N40.1 Benign prostatic hyperplasia with lower urinary tract symptoms; R35.1 Nocturia | CPT/HCPCS: 51798; 81003; 99212 ==

== ENCOUNTER 2024-11-24 07:23 | Outpatient (REF) | payer OTHER, SELFPAY ==
[2024-11-24 10:10] LABS: MANUAL DIFF FLAG NO
[2024-11-24 10:21] LABS: Hematocrit 45.2 % (42.0-52.0); Hemoglobin 15.3 g/dl (14.0-18.0); Imm Gran Abs Auto 0.01 X10*3/uL (0.00-0.03); Imm Gran Pct Auto 0.2 % (0.0-0.4); Lymphocytes Absolute Auto 1.0 X10*3/uL (1.2-4.9); Mean Corpuscular HGB Conc 33.8 g/dl (31.0-36.0); Mean Corpuscular Hemoglobin 28.8 pg (27.0-33.0); Mean Corpuscular Volume 85.0 fL (80.0-98.0); NRBC Abs Auto 0.000 X10*3/uL (0.0-0.012); NRBC Pct Auto 0.0 /100WBC (0.0-0.2); Platelet Count 172 X10*3/uL (160-400); Red Blood Count 5.32 X10*6/uL (4.60-5.80); White Blood Count 5.0 X10*3/uL (4.8-10.8)
[2024-11-24 10:46] LABS: Appearance Urine Clear; Glucose Urine UA >=1000 mg/dL (Negative); PH 6.0 (5.0-9.0); Specific Gravity - Urine 1.025 (1.005-1.025); UMIC TRIGGER UACC YES
[2024-11-24 10:58] LABS: Osmolality, Serum 297 mosm/kg (281-305)
[2024-11-24 11:01] LABS: Alanine Aminotransferase 37 U/L (0-40); Albumin Level 4.4 g/dL (3.5-5.0); Alkaline Phosphatase 80 U/L (39-117); Anion Gap 11 (12-20); Aspartate Amino Transferase 24 U/L (5-37); Blood Urea Nitrogen 16 mg/dL (9-16); Calcium 9.4 mg/dL (8.4-10.2); Carbon Dioxide 25 mmol/L (22-29); Chloride 106 mmol/L (96-108); Cholesterol 133 mg/dL (<200); Estimated Glomerular Filt Rate > 60; HDL Cholesterol 23 mg/dL (>40); Potassium 4.3 mmol/L (3.3-5.1); Sodium 138 mmol/L (135-145); Total Protein 6.9 g/dL (6.5-8.0); Triglycerides 192 mg/dL (<150)
[2024-11-24 11:29] LABS: Lithium 0.56 mmol/L (0.60-1.20)
== END 2024-11-24 07:24 | disposition home or self-care (01) ==
LOC: HO.HMGCLDS 07:23
PROVIDERS: PCP Nurse Practitioner Family; Referring Provider Nurse Practitioner Psychiatric/Mental Health; Visit Provider Nurse Practitioner Family
DX: E11.65 Type 2 diabetes mellitus with hyperglycemia (principal); E87.1 Hypo-osmolality and hyponatremia; Z79.4 Long term (current) use of insulin; Z79.899 Other long term (current) drug therapy
CPT/HCPCS: 36415; 80053; 80061; 80178; 81001; 82043; 82570; 83930; 83935; 84443; 85025

== ENCOUNTER 2024-12-06 09:37 | Outpatient (AMB) | payer OTHER, SELFPAY ==
--- NOTE | 2024-12-06 09:43 | MHC.PC.OV ---
Vital Signs 12/06/24 09:46 Height 6 ft 2 in Weight 287 lb BMI 36.8 BP 118/80 Blood Pressure Location Lt brachial Position Sitting Respiration 16 Pulse 69 Pulse Source Pulse Oximeter Temp 98.2 F Temp Source Oral Pulse Oximetry (%) 99 Oxygen Delivery Method Room Air Intake Visit Reasons: 6 months f/up- A1C needed Network Solutions Architect Required: No Accompanied by: Self / Same As Patient Allergies doxycycline Allergy (Verified 12/06/24 10:52) Itching Medication List - Last Reconciled 12/06/24 by Lázaro Browning, OBSTETRICS SCRUB NURSE- albuterol sulfate 90 mcg/actuation 2 puffs inhalation Q6H PRN 30 days alpha lipoic acid 600 mg PO Q24H aspirin 81 mg PO DAILY 90 days blood-glucose sensor (Gatheredtableyle Lynne 3 Plus Sensor device) Test blood sugar 4 times per day, change sensor every 15 days blood-glucose sensor (Dexcom G7 Sensor device) test blood sugar 4 times per day blood-glucose,program and research coordinator,cont (Dexcom G7 Hearing Aid Dispenser) To test blood sugar 4 times per day cane straight, single legged cane cholecalciferol (vitamin D3) 50 mcg PO DAILY 90 days clonazepam Take 1/2 tab to 1 tab BID twice a day for severe anxiety or insomnia. cyanocobalamin (vitamin B-12) 500 mcg PO DAILY 30 days docusate sodium take one tablet daily empagliflozin (Jardiance) 10 mg PO DAILY famotidine 20 mg PO BID PRN gabapentin 400 mg PO .four times a day 30 days galcanezumab-gnlm (Emgality Pen) 120 mg subcut ONCE 30 days lithium carbonate 450 mg PO BID losartan 25 mg PO DAILY metformin ER 500 mg PO DAILY omega-3 acid ethyl esters 1 cap PO BID oxcarbazepine 300 mg PO BID polyethylene glycol 3350 (Miralax) 238 grams PO ONCE [Standard hand held cane to use when ambulating ] tadalafil (Cialis) 5 mg PO DAILY 90 days Tobacco use date assessed: 12/06/24 Dental Screening Dental Screen Date: 12/06/24 Did you have a dental visit in the last 12 months?: Yes Did you have a dental problem in the last 6 months where you did not have access to dental care?: No Was dental information given to patient?: Patient has dentist HPI 6 months f/up- A1C needed HPI Details Chief Complaint The patient presents for follow-up care for diabetes management. History of Present Illness The patient is a 49-year-old male presenting with follow-up for diabetes management. His hemoglobin A1c is 5.9%, indicating good glycemic control, and he has experienced weight loss, which is a positive outcome. He is using a continuous glucose monitor, which has been beneficial in managing his condition. The patient has a significant psychiatric history and is under the care of a therapist and psychiatrist. Recently, his lithium dosage was increased, and he seems more fatigued, raising concerns about potential side effects or mood changes. There is a need to discuss these symptoms with his psychiatrist, which pt will bring up. The patient suffers from severe neuropathy, primarily affecting his feet, which has been an ongoing issue. He typically wears sandals due to discomfort but was able to wear diabetic shoes during this visit, indicating some improvement. The monofilament test showed that he could feel the pressure, suggesting some sensory function remains intact. In terms of preventative care, the patient is aware of the need for an annual eye exam and is awaiting a follow-up colonoscopy. Social History Health Maintenance - Annual eye exam scheduled. - Awaiting follow-up colonoscopy. Review of Systems - Neurological: Reports severe neuropathy in feet. - Psychiatric: Reports increased fatigue, potential mood changes; denies suicidal or homicidal ideation. Physical Exam General: Cooperative, healthy appearing, comfortable, no acute distress and well developed, obese Orientation: Patient oriented x3 Limitations: No limitations Head: Normal to inspection Ears: Hearing grossly normal bilaterally Nose: Normal external nose present Face and sinus: Normal facial exam Eyes: Appearance normal, both eyes and all related structures Neck: Normal visual inspection and Yes full ROM Respiratory: Lungs were fairly clear Cardiovascular: Regular rate and rhythm. Normal S1 and S2 GI: Normal to inspection. Soft to palpation and nontender Skin: No rashes or lesions noted Neuro: Patient oriented x3 Extremities: Feet were intact, flat feet. Could feel the monofilament, felt more pressure with use . Wearing diabetic shoes today. Results - Labs: Hemoglobin A1c is 5.9%. Plan Patient was informed and verbally consented to the use of an ambient scribe for clinic note documentation during this visit. 1. Diabetes Mellitus The patient's diabetes is well-managed with a hemoglobin A1c of 5.9%, indicating good glycemic control. He is using a continuous glucose monitor, which has been beneficial in managing his condition. 2. Neuropathy The patient experiences severe neuropathy in his feet, which has been ongoing. He typically wears sandals due to discomfort but was able to wear diabetic shoes during this visit, indicating some improvement. The monofilament test showed that he could feel the pressure, suggesting some sensory function remains intact. 3. Psychiatric History The patient has a significant psychiatric history and is under the care of a therapist and psychiatrist. Recently, his lithium dosage was increased, and he reports feeling more fatigued, raising concerns about potential side effects or mood changes. There is a need to discuss these symptoms with his psychiatrist to rule out any suicidal or homicidal ideation. 4. Preventative Care The patient is aware of the need for an annual eye exam and is awaiting a follow-up colonoscopy. 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 Joint pain Pulmonary granuloma Encephalomalacia with cerebral infarction Stroke Gout Diverticulitis Fatty liver Splenomegaly Hypertriglyceridemia ANAYA on CPAP Mild asthma Ophthalmic migraine Heel spur ADHD Bipolar disorder Anxiety Type 2 diabetes mellitus with diabetic polyneuropathy, with long-term current use of insulin Essential hypertension Hyperlipidemia LDL goal <100 Vitamin D deficiency Obesity due to excess calories BMI 37.0-37.9, adult Type 2 diabetes mellitus with hyperglycemia Surgical History History of foot surgery History of hernia repair History of colectomy Family History Father Diabetes mellitus Mental health disorder Mother HTN (hypertension) Maternal Uncle Diabetes mellitus Substance use disorder Mental health disorder Paternal Grandmother Diabetes mellitus Paternal Grandfather Stomach cancer Social History Household Members: Significant Other and Children Housing: House Patient Tobacco Use Status: Former Tobacco user Tobacco use type: Cigarette Cigarettes Per Day: 8 Years Smoked: 25 e-Cigarette/Vaping Use: Currently Using Second Hand Smoke Exposure: No Substance Use Type: Marijuana service: No Current occupational status: disabled Cognitive needs: No Hearing needs: No Vision needs: No Questionnaire PHQ-9 Over the last 2 weeks, how often have you been bothered by any of the following problems? 1. Little interest or pleasure in doing things: more than half the days 2. Feeling down, depressed, or hopeless: more than half the days 3. Trouble falling or staying asleep, or sleeping too much: more than half the days 4. Feeling tired or having little energy: more than half the days 5. Poor appetite or overeating: more than half the days 6. Feeling bad about yourself - or that you are a failure or have let yourself or your family down: more than half the days 7. Trouble concentrating on things, such as reading the newspaper or watching television: more than half the days 8. Moving or speaking so slowly that other people could have noticed. Or the opposite - being so fidgety or restless that you have been moving around a lot more than usual: not at all 9. Thoughts that you would be better off or of hurting yourself in some way: not at all Total score: 14 Depression Screening Interpretation: Positive (denies any si or hi) Depression Screening Follow-up: Existing condition and In treatment Depression Screening Done: Yes 59149 - PHQ-9 Billing: Yes Source: Developed by Drs. Israel Kiser, Zainab Barajas, Alfredo Yang and colleagues, with an educational florencio from [employer]. Thrive Questionnaire Date Thrive assessed: 05/16/24 I am a: Patient What is your living situation today?: I have a place to live, but I am worried about losing it in the future Within the past 12 months, did the food you bought not last and you didn't have the money to get more?: Sometimes True Within the past 12 months, did you worry whether your food would run out before you got money to buy more?: Sometimes True Do you have trouble paying for medicines?: No Do you have trouble getting transportation to medical appointments?: Yes Do you have trouble paying your heating and electricity bill?: Yes Do you have trouble taking care of your child, family member or friend?: No Do you have trouble with day-to-day activities such as bathing, preparing meals, shopping, managing finances, etc.?: Yes Are you currently unemployed and looking for a job?: No Are you interested in more education?: No Please select the resources that you would like help with: None Currently or been in a relationship where the following occur: I choose not to answer THRIVE Score: 5 MANOLO-7 AMB Questionnaire MANOLO-7 Date MANOLO - 7 assessed: 05/23/24 Feeling nervous, anxious, or on edge: 3 = Nearly every day Not being able to stop or control worryin = Nearly every day Worrying too much about different things: 3 = Nearly every day Trouble relaxin = Nearly every day Being so restless that it is hard to sit still: 3 = Nearly every day Becoming easily annoyed or irritable: 3 = Nearly every day Feeling afraid as if something awful might happen: 3 = Nearly every day Total MANOLO-7 score (0-4 normal; 5-9 mild; 10-14 moderate; 15-21 severe): 21 Source: Developed by Drs. Israel Kiser, Zainab Barajas, Alfredo Yang and colleagues, with an educational florencio from [employer]. MANOLO-7 Assessment Billing MANOLO-7 Assessment Tool: MANOLO-7 Assessment 25503 (in treatment, denies any SI or HI) Physical exam (Primary Care) Vital Signs: Last Vital Signs Temp 98.2 F 12/06/24 09:46 Pulse 69 12/06/24 09:46 Resp 16 12/06/24 09:46 BP 118/80 12/06/24 09:46 Pulse Ox 99 12/06/24 09:46 Oxygen Delivery Method Room Air 12/06/24 09:46 BMI result Body Mass Index 36.8 Tobacco/Smoking Status: Tobacco use Status Tobacco use date assessed 12/06/24 12/06/24 09:57 Patient Tobacco Use Status Former Tobacco user 12/06/24 09:45 Tobacco use type Cigarette 12/06/24 09:45 e-Cigarette/Vaping Use Currently Using 12/06/24 09:45 PHQ-9: PHQ-9 Score PHQ-9: Total score 14 12/06/24 09:57 Depression Screening Interpretation: Positive (denies any si or hi) Depression Screening Follow-up: Existing condition and In treatment Thrive Assessment: Date of Thrive Assessment Date Thrive assessed 05/16/24 12/06/24 09:45 Currently or been in a relationship where the following occur: I choose not to answer Coding Level of Care Code Est Pt Level 3 (04860) Diagnoses 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 Orders: Orders AMB Hemoglobin A1c Today Z13.9 - Encounter for screening, unspecified Medications: Changed From gabapentin 400 mg PO TID 90 caps 1RF 30 days E11.42 - Type 2 diabetes mellitus with diabetic polyneuropathy, Z79.4 - terminal superintendent (current) use of insulin To gabapentin 400 mg PO .four times a day 120 caps 1RF 30 days E11.42 - Type 2 diabetes mellitus with diabetic polyneuropathy, Z79.4 - terminal superintendent (current) use of insulin
[2024-12-06 09:46] VITALS: BP 118/80; PULSE 69; RESP 16; TEMP 36.8; O2SAT 99; BMI 36.8
--- OUTSIDE RECORDS SUMMARY | 2024-12-06 10:32 | XMS_ITS | Patient Health Record ---
Author Organization [facility] Address [address] [place] [address] Care Team Providers Care Brass Chaser Name Role Phone Naseem Tamayo M.D. Primary Care Provider Michelle vailable Israel Montoya Unavailable [phone] Reason For Referral No Information Plan Of Treatment No Information Insurance Providers Payer Name Payer Address Payer Phone Subscriber Number Group Number Insured Name Patient Relationship to Insured Coverage Start Date Coverage End Date [facility] [address] [place] [phone] [id number] SAL CALLE Self - patient is the insured Medical (General) History Medical History History ICD Code diverticulitis fatty liver sleep apnea Surgical History Surgery Date(Month/Year) bariatric surgery
== END 2024-12-06 11:36 | disposition home or self-care (01) ==
LOC: HO.HMCC 09:38
PROVIDERS: PCP Nurse Practitioner Family; Visit Provider Nurse Practitioner Family
DX: G62.9 Polyneuropathy, unspecified (principal); E11.49 Type 2 diabetes mellitus with other diabetic neurological complication; Z13.9 Encounter for screening, unspecified

== ENCOUNTER → 2024-12-06 09:37 | Outpatient (BNVA) | payer OTHER, SELFPAY | PROVIDERS: PCP Nurse Practitioner Family; Visit Provider Nurse Practitioner Family | DX: E11.40 Type 2 diabetes mellitus with diabetic neuropathy, unspecified (principal); E11.49 Type 2 diabetes mellitus with other diabetic neurological complication; Z79.4 Long term (current) use of insulin | CPT/HCPCS: 83036; 96127; 99212 ==

== ENCOUNTER 2025-02-06 12:28 | Outpatient (AMB) | payer OTHER, SELFPAY ==
--- NOTE | 2025-02-06 12:46 | MHC.OFFVIS ---
Intake Visit Reasons: 3m/PVR Intake Note: Patient is present for 3M/PVR Urology Medication: TADALAFIL,VITAMIN B12 Antibiotic Allergy:DOXYCYCLINE Blood Thinner:ASPIRIN TODAY'S PVR: 25ML'S Chrome Tanning Drum Operator Required: No Allergies doxycycline Allergy (Verified 02/06/25 12:50) Itching HPI Comments Details: Car is a 49-year-old male patient of Dr. Banks. He has a past medical history of ventricular septal defect, Laird's palsy, stroke, gout, diverticulitis, fatty liver, splenomegaly, ANAYA on CPAP, mild asthma, ADHD, bipolar disorder, anxiety, type 2 diabetes, hyperlipidemia, obesity, and vitamin-D deficiency. He presents to the office today for follow-up. In discussion with the patient today he reports no improvement in urinary hesitancy and weak urinary stream. He discusses his frustration regarding these urological conditions however does not wish to proceed with any other interventions at this time. We did review in office urodynamics verses uroflow verses cystoscopy. He is requesting refill on tadalafil. He reports that although he does not feel this has been helpful he would like to continue with the medication. Patient previously trialed Flomax with no improvement in lower urinary tract symptoms. He continues to discuss experiencing episodes of urinary urgency with minimal urination as well as nocturia. Unable to obtain urine for urinalysis today however PVR 25 mL. Previous workup has included a CT 09/27 noting no hydronephrosis, gross nephrolithiasis or renal masses noted bilaterally. Subcentimeter cystic lesion right kidney. Patient with a previous history of following up with Dr. Tena in the past for scrotal discomfort however denies this to be an issue at this time. In review of patient's chart it appears PSA 05/30 0.2. When asked patient denies any known family history of prostate cancer. He otherwise denies incontinence, hematuria, dysuria, foul smelling urine, flank pain, fever, and or chills. We discussed at length potential causes of lower urinary tract symptoms patient is experiencing as well as further treatment options and risks and benefits of these treatment options. All questions were answered. He otherwise offers no other issues or concerns at this time. 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 Joint pain Pulmonary granuloma Encephalomalacia with cerebral infarction Stroke Gout Diverticulitis Fatty liver Splenomegaly Hypertriglyceridemia ANAYA on CPAP Mild asthma Ophthalmic migraine Heel spur ADHD Bipolar disorder Anxiety Type 2 diabetes mellitus with diabetic polyneuropathy, with long-term current use of insulin Essential hypertension Hyperlipidemia LDL goal <100 Vitamin D deficiency Obesity due to excess calories BMI 37.0-37.9, adult Type 2 diabetes mellitus with hyperglycemia Surgical History History of foot surgery History of hernia repair History of colectomy Family History Father Diabetes mellitus Mental health disorder Mother HTN (hypertension) Maternal Uncle Diabetes mellitus Substance use disorder Mental health disorder Paternal Grandmother Diabetes mellitus Paternal Grandfather Stomach cancer Social History Household Members: Significant Other and Children Housing: House Patient Tobacco Use Status: Former Tobacco user Tobacco use type: Cigarette Cigarettes Per Day: 8 Years Smoked: 25 e-Cigarette/Vaping Use: Currently Using Second Hand Smoke Exposure: No Substance Use Type: Marijuana service: No Current occupational status: disabled Cognitive needs: No Hearing needs: No Vision needs: No Review of Systems Const Reports no additional complaints Eyes Reports no additional complaints ENT Reports no additional complaints Card Reports as per HPI Resp Reports as per HPI GI Reports as per HPI Reports as per HPI Musc Reports no additional complaints Neuro Reports as per HPI Psych Reports as per HPI Endo Reports as per HPI Maycol/Lymph Reports no additional complaints Aller/Immun Reports no additional complaints Physical Exam Const General: cooperative, healthy appearing, comfortable, no acute distress, well developed, alert and awake Nutritional Appearance: overweight Orientation/consciousness: patient oriented x3 Limitations: no limitations HEENT Head: Yes normal to inspection, Yes normocephalic and Yes atraumatic Ears: hearing grossly normal bilaterally Eyes General: appearance normal, both eyes and all related structures Neck Neck: Yes normal visual inspection and Yes trachea midline Chest Chest palpation & inspection: normal inspection of the chest Resp Effort & Inspection: normal respiratory effort and able to speak in complete sentences Cardio Rate: regular rate GI Inspection: Yes normal to inspection Other: as per HPI General: Yes no CVA tenderness Back/Spine/Pelvis Back: no CVA tenderness Skin General skin exam: no rashes or lesions noted Neuro General: patient oriented x3 Extrem General: Yes normal to inspection Psych Appearance: grossly normal and well kempt Mental Status: mental status grossly normal Speech and movement: Normal speech and movement present and Clear speech present Affect: normal affect Attitude: cooperative and Avoids eye contact (attititude/behavior) Thought process: Normal thought process present Thought content: Normal thought content present Insight: Fair insight present (Psych) Judgement: Fair judgement present (Psych) Office Procedures Post Void Residual Post Residual Void Post Void Residual (PVR): 25 72107-Dqaf Void Residual by ultrasound Assessment & Plan Assessment & Plan (1) Screening for prostate cancer: Code(s): Z12.5 - Encounter for screening for malignant neoplasm of prostate Category: Medical (2) History of urinary hesitancy: Code(s): Z87.898 - Personal history of other specified conditions Category: Medical (3) Nocturia: Code(s): R35.1 - Nocturia Category: Medical (4) Weak urinary stream: Code(s): R39.12 - Poor urinary stream Category: Medical Plan Unable to obtain urine for urinalysis as patient unable to void however PVR 25 mL. We did discussed further treatment options and risks and benefits of these treatment options. Patient would like to continue with current management. Refill provided on Cialis as discussed and prescribed. All questions were answered to the best of my ability. Will obtain PSA in 6 months. Follow-up in 6 months with PSA and PVR; or sooner with any issues, concerns, and or questions. Orders: Orders Prostate Specific Antigen 6 Months R35.1 - Nocturia, R39.12 - Poor urinary stream, Z12.5 - Encounter for screening for malignant neoplasm of prostate, Z87.898 - Personal history of other specified conditions Medications: Refilled tadalafil (Cialis) [id number] [facility] [place] 2[place] GroupGDRX Member [id number] 5 mg PO DAILY 90 tabs 3RF 90 days Patient Instructions: The patient had an opportunity to ask questions regarding the treatment plan. All questions were answered. Physical exam, labs, and imaging were discussed and reviewed in detail. As well as risks, benefits, and discussion of treatment choices. No major barriers to understanding were identified. The patient expressed understanding and agreement with the above treatment plan. The patient was made aware they should contact our office by phone for worsening of their current condition, the appearance of new symptoms, or with any questions or concerns. Compliance is encouraged with any medications and follow up testing that is ordered. It is a privilege to be allowed the opportunity to participate in? your urological care.? Again, if you have any questions or concerns If you have any questions or concerns please do not hesitate to contact me. The office is [phone]. This note is constructed using voice recognition software. While every effort has been made to ensure accuracy arabic teacher errors may have been included. Yours sincerely, MORE Haji Coding Level of Care Code Est Pt Level 3 (51332) Complex EM visit Add On G2211 Diagnoses Screening for prostate cancer Z12.5 History of urinary hesitancy Z87.898 Nocturia R35.1 Weak urinary stream R39.12 CPT Codes Post Residual Void - PVR CPT Code: 56206-Xyqr Void Residual by ultrasound ([id number])
--- OUTSIDE RECORDS SUMMARY | 2025-02-06 15:11 | XMS_ITS | Patient Health Record ---
Author Organization [facility] Address [address] [place] [address] Care Team Providers Care Rn Endocrinology Name Role Phone Naseem Tamayo M.D. Primary Care Provider Michelle vailable Israel Montoya Unavailable [phone] Reason For Referral No Information Plan Of Treatment No Information Insurance Providers Payer Name Payer Address Payer Phone Subscriber Number Group Number Insured Name Patient Relationship to Insured Coverage Start Date Coverage End Date [facility] [address] [place] [phone] [id number] SAL CALLE Self - patient is the insured Medical (General) History Medical History History ICD Code diverticulitis fatty liver sleep apnea Surgical History Surgery Date(Month/Year) bariatric surgery
== END 2025-02-06 13:09 | disposition home or self-care (01) ==
PROVIDERS: PCP Nurse Practitioner Family; Visit Provider Nurse Practitioner Family
DX: Z12.5 Encounter for screening for malignant neoplasm of prostate (principal); Z87.898 Personal history of other specified conditions; R35.1 Nocturia; R39.12 Poor urinary stream
CPT/HCPCS: 99213; G2211

== ENCOUNTER → 2025-02-06 12:28 | Outpatient (BNVA) | payer OTHER, SELFPAY | PROVIDERS: PCP Nurse Practitioner Family; Visit Provider Nurse Practitioner Family | DX: R35.1 Nocturia (principal); R39.12 Poor urinary stream; Z87.898 Personal history of other specified conditions | CPT/HCPCS: 51798; 99212 ==

== ENCOUNTER 2025-03-05 13:17 | Outpatient (REF) | payer OTHER, SELFPAY ==
[2025-03-05 16:15] LABS: Appearance Urine Clear; Glucose Urine UA >=1000 mg/dL (Negative); PH 6.5 (5.0-9.0); Specific Gravity - Urine >= 1.030 (1.005-1.025); UMIC TRIGGER UA YES
== END 2025-03-05 13:18 | disposition home or self-care (01) ==
LOC: HO.HMGCLDS 13:17
PROVIDERS: PCP Nurse Practitioner Family; Visit Provider Nurse Practitioner Family
DX: N50.82 Scrotal pain (principal); R35.1 Nocturia; R39.12 Poor urinary stream; Z87.898 Personal history of other specified conditions
CPT/HCPCS: 81001; 87086

== ENCOUNTER 2025-03-16 09:15 | Outpatient (REF) | payer OTHER, SELFPAY ==
--- NOTE | ~2025-03-16 | XR_ITS ---
EXAMINATION: XR THORACIC SPINE CLINICAL INFORMATION: M54.50 - Low back pain, unspecified COMPARISON: None available. TECHNIQUE: AP lateral and swimmer's projection in standing position. FINDINGS: Mild multilevel endplate sclerosis and decreased intervertebral disc height and small marginal osteophyte formation in the lower thoracic upper lumbar spine. Mild S-shaped curvature of the lower thoracic spine. No acute cortical disruption or gross malalignment. No lytic or blastic lesions. XR/XR thoracic spine 3V IMPRESSION: Multilevel spondylosis and mild scoliosis. EXAMINATION: XR LUMBOSACRAL SPINE CLINICAL INFORMATION: M54.50 - Low back pain, unspecified COMPARISON: Correlated to CT abdomen and pelvis dated September 25, 2024 TECHNIQUE: AP and lateral views in standing position. FINDINGS: Multilevel marginal osteophyte formation and endplate sclerosis throughout the axial skeleton. Grade 1 anterolisthesis L5-S1 secondary to degenerative changes in the facet joints and pars interarticulares. 1 mm retrolisthesis L2-3 and likely L1 to levels. No lytic or blastic lesions. Vascular clips overlapping the left hemisacrum. Spina bifida occulta, L5.. IMPRESSION: Multilevel thoracolumbar spondylosis resulting in grade 1 anterolisthesis L5-S1 and likely grade 1 retrolisthesis L1 to and L2-3 levels. Electronically signed by: Miguel Gage MD 03/16/2025 10:27 AM PEDRO
--- NOTE | ~2025-03-16 | XR_ITS ---
EXAMINATION: XR THORACIC SPINE CLINICAL INFORMATION: M54.50 - Low back pain, unspecified COMPARISON: None available. TECHNIQUE: AP lateral and swimmer's projection in standing position. FINDINGS: Mild multilevel endplate sclerosis and decreased intervertebral disc height and small marginal osteophyte formation in the lower thoracic upper lumbar spine. Mild S-shaped curvature of the lower thoracic spine. No acute cortical disruption or gross malalignment. No lytic or blastic lesions. XR/XR lumbar spine 2-3V IMPRESSION: Multilevel spondylosis and mild scoliosis. EXAMINATION: XR LUMBOSACRAL SPINE CLINICAL INFORMATION: M54.50 - Low back pain, unspecified COMPARISON: Correlated to CT abdomen and pelvis dated September 25, 2024 TECHNIQUE: AP and lateral views in standing position. FINDINGS: Multilevel marginal osteophyte formation and endplate sclerosis throughout the axial skeleton. Grade 1 anterolisthesis L5-S1 secondary to degenerative changes in the facet joints and pars interarticulares. 1 mm retrolisthesis L2-3 and likely L1 to levels. No lytic or blastic lesions. Vascular clips overlapping the left hemisacrum. Spina bifida occulta, L5.. IMPRESSION: Multilevel thoracolumbar spondylosis resulting in grade 1 anterolisthesis L5-S1 and likely grade 1 retrolisthesis L1 to and L2-3 levels. Electronically signed by: Miguel Gage MD 03/16/2025 10:27 AM PEDRO
== END 2025-03-16 09:16 | disposition home or self-care (01) ==
LOC: HO.HMGCX 09:15
PROVIDERS: PCP Nurse Practitioner Family; Visit Provider Physician Assistant
DX: M54.50 Low back pain, unspecified (principal); Z79.1 Long term (current) use of non-steroidal anti-inflammatories (NSAID)
CPT/HCPCS: 72072; 72100; 99212

== ENCOUNTER 2025-03-16 09:15 | Outpatient (AMB) | payer OTHER, SELFPAY ==
--- NOTE | 2025-03-16 09:32 | MHC.OFFWIV ---
Intake Vital Signs 03/16/25 09:33 Height 6 ft 2 in Weight 294 lb BMI 37.7 BP 118/80 Blood Pressure Location Lt brachial Position Sitting Pulse 65 Pulse Source Pulse Oximeter Pulse Oximetry (%) 95 Oxygen Delivery Method Room Air Intake Visit Reasons: EP lower back pain Intake Note: Patient presents c/o lower back pain x3 weeks - patient currently being treated for prostate issues & on abx meloxicam, prednisone (completed 2 days ago) for back pain (sees urology & they are aware of back pain). Patient Tobacco Use Status: Former Tobacco user Allergies doxycycline Allergy (Verified 03/16/25 09:36) Itching HPI HPI Comments History of Present Illness Details This is a 49-year-old male with a past medical history of diabetes, asthma, obstructive sleep apnea and peripheral neuropathy presenting for evaluation of central low back pain that he has had for the past 3 weeks. Patient states he is currently being treated by urology for BPH with antibiotics, prednisone which he completed on Wednesday and meloxicam for his low back pain. Patient denies any injury or trauma preceding the onset of his back pain 3 weeks ago. Patient states that he does not have prostate cancer and this has been confirmed by Urology. Patient denies any radiation of his low back pain and states that it is a focal aching pain. 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 Joint pain Pulmonary granuloma Encephalomalacia with cerebral infarction Stroke Gout Diverticulitis Fatty liver Splenomegaly Hypertriglyceridemia ANAYA on CPAP Mild asthma Ophthalmic migraine Heel spur ADHD Bipolar disorder Anxiety Type 2 diabetes mellitus with diabetic polyneuropathy, with long-term current use of insulin Essential hypertension Hyperlipidemia LDL goal <100 Vitamin D deficiency Obesity due to excess calories BMI 37.0-37.9, adult Type 2 diabetes mellitus with hyperglycemia Surgical History History of foot surgery History of hernia repair History of colectomy Family History Father Diabetes mellitus Mental health disorder Mother HTN (hypertension) Maternal Uncle Diabetes mellitus Substance use disorder Mental health disorder Paternal Grandmother Diabetes mellitus Paternal Grandfather Stomach cancer Social History Household Members: Significant Other and Children Housing: House Patient Tobacco Use Status: Former Tobacco user Tobacco use type: Cigarette Cigarettes Per Day: 8 Years Smoked: 25 e-Cigarette/Vaping Use: Currently Using Second Hand Smoke Exposure: No Substance Use Type: Marijuana service: No Current occupational status: disabled Cognitive needs: No Hearing needs: No Vision needs: No Review of Systems Const Reports as per HPI, Reports no additional complaints, Denies chills, Denies fatigue and Denies fever(s) Musc Reports back pain and Denies radiating pain into limb Skin/Breast Reports system reviewed and no additional complaints, except as documented Neuro Reports no additional complaints Psych Reports no additional complaints Endo Denies fatigue Maycol/Lymph Reports no additional complaints Aller/Immun Reports no additional complaints Physical Exam Vital Signs: Last Vital Signs Pulse 65 03/16/25 09:33 BP 118/80 03/16/25 09:33 Pulse Ox 95 03/16/25 09:33 Oxygen Delivery Method Room Air 03/16/25 09:33 BMI result Body Mass Index 37.7 Const Other: Patient ambulating independently without difficulty General: cooperative, healthy appearing, comfortable, no acute distress, well developed, alert and awake; No lethargic Nutritional Appearance: overweight Orientation/consciousness: patient oriented x3 and No lethargic Limitations: no limitations Back/Spine/Pelvis Thoracic/Lumbar Spine: thoracic and lumbar spine normal to inspection, No paraspinal muscle tenderness, thoracic spinal tenderness at T10, at T11 and at T12 and lumbar spinal tenderness at L1 Sacroiliac joints: bilaterally nontender Sacrum: no tenderness Coccyx: no tenderness Skin General skin exam: no rashes or lesions noted Neuro General: patient oriented x3 and no focal motor deficits Psych Appearance: grossly normal Mental Status: mental status grossly normal Insight: Good insight present (Psych) Judgement: Good judgement present (Psych) Results Reviewed Results Reviewed: Imaging is reviewed, there are no acute findings. Assessment & Plan Assessment & Plan (1) Low Back Pain: Code(s): M54.50 - Low back pain, unspecified Qualifiers: Chronicity: acute Back pain laterality: midline Sciatica presence: without sciatica Qualified Code(s): M54.50 - Low back pain, unspecified Plan: There are no acute findings noted on plain film imaging. Patient will continue to take meloxicam and methocarbamol will be prescribed for additional pain relief. Patient is declining referral for physical therapy consultation at this time. Orders: Orders XR thoracic spine 3V Today M54.50 - Low back pain, unspecified XR lumbar spine 2-3V Today M54.50 - Low back pain, unspecified Coding Level of Care Code Est Pt Level 3 (06003) Diagnoses Acute midline low back pain without sciatica M54.50 Chronicity: acute Back pain laterality: midline Sciatica presence: without sciatica Time Spent (min) 25
[2025-03-16 09:33] VITALS: BP 118/80; PULSE 65; O2SAT 95; BMI 37.7
== END 2025-03-16 10:50 | disposition home or self-care (01) ==
PROVIDERS: PCP Nurse Practitioner Family; Visit Provider Physician Assistant
DX: M54.50 Low back pain, unspecified (principal)

== ENCOUNTER → 2025-03-16 10:05 | Outpatient (BNV) | payer OTHER, SELFPAY | PROVIDERS: PCP Nurse Practitioner Family; Visit Provider Radiology Diagnostic Radiology | DX: M47.815 Spondylosis without myelopathy or radiculopathy, thoracolumbar region (principal); M47.814 Spondylosis without myelopathy or radiculopathy, thoracic region; M48.04 Spinal stenosis, thoracic region | CPT/HCPCS: 72072; 72100 ==

== ENCOUNTER 2025-03-22 08:38 | Outpatient (AMB) | payer OTHER, SELFPAY ==
--- NOTE | 2025-03-22 08:47 | A.OFFPC_ITS ---
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: No Accompanied by: Self / Same As Patient Allergies doxycycline Allergy (Verified 03/22/25 09:31) Itching Medication List - Last Reconciled 03/22/25 by STANLEY HorneP- albuterol sulfate 90 mcg/actuation 2 puffs inhalation Q6H PRN 30 days alpha lipoic acid 600 mg PO Q24H aspirin 81 mg PO DAILY 90 days blood-glucose sensor ([employer] Lynne 3 Plus Sensor device) Test blood sugar 4 times per day, change sensor every 15 days blood-glucose sensor (Dexcom G7 Sensor device) test blood sugar 4 times per day blood-glucose,process artist,cont (Dexcom G7 Glass Mechanic) To test blood sugar 4 times per day cane straight, single legged cane cholecalciferol (vitamin D3) 50 mcg PO DAILY 90 days clonazepam Take 1/2 tab to 1 tab BID twice a day for severe anxiety or insomnia. cyanocobalamin (vitamin B-12) 500 mcg PO DAILY 30 days docusate sodium take one tablet daily empagliflozin (Jardiance) 10 mg PO DAILY famotidine 20 mg PO BID PRN gabapentin 400 mg PO .four times a day 30 days galcanezumab-gnlm (Emgality Pen) 120 mg subcut QMONTH 30 days losartan 25 mg PO DAILY meloxicam 15 mg PO DAILY 30 days metformin ER 500 mg PO DAILY methocarbamol 750 mg PO QID omega-3 acid ethyl esters 1 cap PO BID oxcarbazepine 300 mg PO BID polyethylene glycol 3350 (Miralax) 238 grams PO ONCE [Standard hand held cane to use when ambulating ] sulfamethoxazole-trimethoprim 800-160 mg (Bactrim DS) 1 tab PO BID 14 days tadalafil (Cialis) 5 mg PO DAILY 90 days tamsulosin 0.4 mg PO BEDTIME Tobacco use date assessed: 03/22/25 Dental Screening Dental Screen Date: 03/22/25 Did you have a dental visit in the last 12 months?: Yes Did you have a dental problem in the last 6 months where you did not have access to dental care?: No Was dental information given to patient?: Patient has dentist HPI Blood in semen HPI Details Chief Complaint The patient presents with ongoing lower back pain and urinary issues. History of Present Illness The patient is a 49 year old male presenting with ongoing lower back problems and urinary issues. He reports urinary symptoms consistent with prostatitis, including weak stream and hesitancy, but is able to void. He also has a history of hemospermia, which began at the end of February. He has been seen by urology in the past and tried Flomax, which he reports did not help. The patient also reports lower back pain, a chronic issue, which spontaneously started around the same time as the hemospermia in late February. He denies radicular symptoms but notes an inability to get into a supine position, and he cannot toe walk or heel walk. denies cauda equina type symptoms. Past workup includes a CT scan in September which showed no hydronephrosis, gross kidney stones, or renal masses, but did note a subcentimeter cystic lesion on the right kidney. A lumbar x-ray from this month showed anterior listhesis of L5-S1 and likely grade 1 retrolisthesis at L1-L2 and L2-L3. His PSA in May was 0.2, and there is no family history of prostate cancer. It doesnt appear a cystoscopy was done, ? urodynamic studys He has a history of smoking cigarettes for most of his life but no longer does, though he currently smokes marijuana. Social History - Tobacco Use: Reports smoking cigarette s for most of his life but has quit. - Substance Use: Reports current use of marijuana. Health Maintenance - Prostate Cancer Screening: PSA level i n May was 0.2. Review of Systems - Constitutional: Denies fevers or chill s. - Genitourinary: Reports hemospermia sin ce the end of February, urinary hesitancy, and a weak stream. - Musculoskeletal: Reports lower back pa in. - Neurological: Reports inability to ass ume a supine position, toe walk, or heel walk. Denies radicular symptoms. Physical Exam General: Cooperative, healthy appearing, comfortable, no acute distress and well developed Orientation: Patient oriented x3 Limitations: Cannot toe walk or heel walk. Cannot get into supine position. Head: Normal to inspection Ears: Hearing grossly normal bilaterally Nose: Normal external nose present Face and sinus: Normal facial exam Eyes: Appearance normal, both eyes and all related structures Neck: Normal visual inspection and Yes full ROM Respiratory: Normal respiratory effort and able to speak in complete sentences. Clear to auscultation bilaterally Cardiovascular: Regular rate and rhythm. Normal S1 and S2 GI: Normal to inspection. Soft to palpation and nontender Skin: No rashes or lesions noted Neuro: Patient oriented x3, Extremities: Normal to inspection, 0 patellar reflexes. unable to get into supine position due to pain. unable to perform heel and toe ambulation due to lower back pain Results - PSA: 0.2 ng/mL (May). - Post-void residual (prior): 25 mL. - CT Scan (September): No hydronephrosis, no gross kidney stone formation, no renal masses. Findings included a subcentimeter cystic lesion of the right kidney. - Lumbar X-ray (current month): Showed a nterior listhesis of L5-S1 and likely grade 1 retrolisthesis at the L1-L2 and L2-L3 levels. Plan 1. Lower Back Pain Given the chronic lower back pain, associated urinary issues ( though most likely related to enlarged prostate), and the inability to perform a full exam due to the patient's discomfort, an MRI of the lumbar spine will be ordered for further evaluation. The patient's meloxicam will be increased from 7.5 mg to 15 mg for pain management. 2. Urinary Hesitancy And Prostatitis Sym ptoms The patient will be re-trialed on Flomax to see if it helps his symptoms. As requested by the patient, a referral will be placed for a second opinion with another urology group for further evaluation and treatment. Discussion Notes I will make a referral to another urology group for a second opinion regarding his urinary issues, as he requested. We will try Flomax again to see if it helps his symptoms of weak stream and hesitancy. Due to his chronic lower back pain, the associated urinary symptoms, and the inability to conduct a complete physical exam because of his discomfort, I am ordering an MRI of his lumbar spine for more detailed imaging. I am also increasing his meloxicam dose to 15 mg to better manage his pain. Patient Instructions - We will refer you to a new urology spe cialist for a second opinion on your urinary problems, as you requested. - Please start taking Flomax again as pr escribed to see if it helps with your urination. - We are ordering an MRI of your lower b ack to get a better understanding of your pain. - Increase your meloxicam dose from 7.5 mg to 15 mg daily for your back pain. 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 Joint pain Pulmonary granuloma Encephalomalacia with cerebral infarction Stroke Gout Diverticulitis Fatty liver Splenomegaly Hypertriglyceridemia ANAYA on CPAP Mild asthma Ophthalmic migraine Heel spur ADHD Bipolar disorder Anxiety Type 2 diabetes mellitus with diabetic polyneuropathy, with long-term current use of insulin Essential hypertension Hyperlipidemia LDL goal <100 Vitamin D deficiency Obesity due to excess calories BMI 37.0-37.9, adult Type 2 diabetes mellitus with hyperglycemia Surgical History History of foot surgery History of hernia repair History of colectomy Family History Father Diabetes mellitus Mental health disorder Mother HTN (hypertension) Maternal Uncle Diabetes mellitus Substance use disorder Mental health disorder Paternal Grandmother Diabetes mellitus Paternal Grandfather Stomach cancer Social History Household Members: Significant Other and Children Housing: House Patient Tobacco Use Status: Former Tobacco user Tobacco use type: Cigarette Cigarettes Per Day: 8 Years Smoked: 25 e-Cigarette/Vaping Use: Currently Using Second Hand Smoke Exposure: No Substance Use Type: Marijuana service: No Current occupational status: disabled Cognitive needs: No Hearing needs: No Vision needs: No Questionnaire Thrive Questionnaire Date Thrive assessed: 05/16/24 I am a: Patient What is your living situation today?: I have a place to live, but I am worried about losing it in the future Within the past 12 months, did the food you bought not last and you didn't have the money to get more?: Sometimes True Within the past 12 months, did you worry whether your food would run out before you got money to buy more?: Sometimes True Do you have trouble paying for medicines?: No Do you have trouble getting transportation to medical appointments?: Yes Do you have trouble paying your heating and electricity bill?: Yes Do you have trouble taking care of your child, family member or friend?: No Do you have trouble with day-to-day activities such as bathing, preparing meals, shopping, managing finances, etc.?: Yes Are you currently unemployed and looking for a job?: No Are you interested in more education?: No Please select the resources that you would like help with: None Currently or been in a relationship where the following occur: I choose not to answer THRIVE Score: 5 MANOLO-7 AMB Questionnaire MANOLO-7 Date MANOLO - 7 assessed: 05/23/24 Source: Developed by Drs. Israel Kiser, Zainab Barajas, Alfredo Yang and colleagues, with an educational florencio from [employer]. Physical exam (Primary Care) Vital Signs: Last Vital Signs Pulse 65 03/22/25 08:48 BP 118/62 03/22/25 08:48 Pulse Ox 97 03/22/25 08:48 Oxygen Delivery Method Room Air 03/22/25 08:48 BMI result Body Mass Index 37.5 Tobacco/Smoking Status: Tobacco use Status Tobacco use date assessed 03/22/25 03/22/25 08:51 Patient Tobacco Use Status Former Tobacco user 03/22/25 08:51 Tobacco use type Cigarette 03/22/25 08:51 e-Cigarette/Vaping Use Currently Using 03/22/25 08:51 Thrive Assessment: Date of Thrive Assessment Date Thrive assessed 05/16/24 03/22/25 08:51 Currently or been in a relationship where the following occur: I choose not to answer Coding Level of Care Code Est Pt Level 4 (50272) Diagnoses Nodular prostate N40.2 Weak urinary stream R39.12 Hematospermia R36.1 Chronic lower back pain M54.50; G89.29 Assessment & Plan Assessment & Plan (1) Nodular prostate: Code(s): N40.2 - Nodular prostate without lower urinary tract symptoms Category: Medical (2) Weak urinary stream: Code(s): R39.12 - Poor urinary stream Category: Medical (3) Hematospermia: Code(s): R36.1 - Hematospermia Category: Medical (4) Chronic lower back pain: Code(s): M54.50 - Low back pain, unspecified; G89.29 - Other chronic pain Category: Medical Plan . Orders: Orders MR lumbar spine wo con Today G89.29 - Other chronic pain, M54.50 - Low back pain, unspecified Referrals Urology Referral N40.2 - Nodular prostate without lower urinary tract symptoms, R36.1 - Hematospermia, R39.12 - Poor urinary stream Medications: New tamsulosin 0.4 mg PO BEDTIME 90 caps 0RF Refilled meloxicam 15 mg PO DAILY 30 tabs 0RF 30 days
[2025-03-22 08:48] VITALS: BP 118/62; PULSE 65; O2SAT 97; BMI 37.5
--- OUTSIDE RECORDS SUMMARY | 2025-03-22 09:06 | XMS_ITS | Patient Health Record ---
Author Organization [facility] Address [address] [place] [address] Care Team Providers Care Clinical Pharmacy Manager Name Role Phone Naseem Tamayo M.D. Primary Care Provider Michelle vailable Israel Montoya Unavailable [phone] Reason For Referral No Information Plan Of Treatment No Information Insurance Providers Payer Name Payer Address Payer Phone Subscriber Number Group Number Insured Name Patient Relationship to Insured Coverage Start Date Coverage End Date [facility] [address] [place] [phone] [id number] SAL CALLE Self - patient is the insured Medical (General) History Medical History History ICD Code diverticulitis fatty liver sleep apnea Surgical History Surgery Date(Month/Year) bariatric surgery
== END 2025-03-22 10:23 | disposition home or self-care (01) ==
LOC: HO.HMCC 08:39
PROVIDERS: PCP Nurse Practitioner Family; Visit Provider Nurse Practitioner Family
DX: N40.2 Nodular prostate without lower urinary tract symptoms (principal); R39.12 Poor urinary stream; R36.1 Hematospermia; M54.50 Low back pain, unspecified; G89.29 Other chronic pain

== ENCOUNTER → 2025-03-22 08:38 | Outpatient (BNVA) | payer OTHER, SELFPAY | PROVIDERS: PCP Nurse Practitioner Family; Visit Provider Nurse Practitioner Family | DX: N40.2 Nodular prostate without lower urinary tract symptoms (principal); M54.50 Low back pain, unspecified; R39.12 Poor urinary stream; R39.11 Hesitancy of micturition; R36.1 Hematospermia; G89.29 Other chronic pain | CPT/HCPCS: 99212 ==